=== PATIENT | female | born 1950 | race Caucasian/White ===

== ENCOUNTER 2021-09-24 13:47 | Outpatient (CLI) | payer MEDICARE, SELFPAY ==
--- NOTE | 2021-09-24 14:59 | ECG_ITS ---
Measurements Intervals [place] Rate: 68 P: 44 MD: 148 QRS: 49 QRSD: 90 T: 30 QT: 377 QTc: 402 Interpretive Statements SINUS RHYTHM MINIMAL Q WAVES- INFERIOR LEADS BASELINE ARTIFACT- I, II, III, AVR, AVL, AVF BORDERLINE ECG Electronically Signed On 09-24-2021 16:03:33 EXTRUDER OPERATOR HORIZONTAL by Stephan Lepe D.O.
[2021-09-24 15:46] LABS: Basophils Absolute Auto 0.1 K/mm3 (0.0-0.1); Basophils Percent Auto 0.9 % (0.2-1.2); Eosinophils Absolute Auto 0.1 K/mm3 (0-0.3); Eosinophils Percent Auto 1.3 % (0-4.4); Hematocrit 43.5 % (37.0-47.0); Hemoglobin 14.9 g/dL (12.0-15.0); Immature Granulocyte Absolute 0.02 K/mm3 (0.00-0.031); Immature Granulocyte Percent A 0.3 % (0-0.5); Lymphocytes Percent Auto 28.7 % (18.3-44.2); Mean Corpuscular HGB Conc 34.3 g/dl (32-36); Mean Corpuscular Hemoglobin 32.1 pg (26-34); Mean Corpuscular Volume 93.8 fl (80-100); Mean Platelet Volume 9.5 fl (7.4-10.4); Monocytes Absolute Auto 0.4 K/mm3 (0.1-0.6); Monocytes Percent Auto 5.1 % (2.6-8.5); Neutrophils Absolute Auto 4.9 K/mm3 (1.3-6.7); Neutrophils Percent Auto 63.7 % (45.5-73.1); Platelet Count Result 228 k/mm3 (150-375); Red Blood Count 4.64 M/mm3 (4.2-5.4); Red Cell Distribution Width 11.9 % (11.5-14.5); White Blood Count 7.7 K/mm3 (4.5-10.0)
[2021-09-24 15:52] LABS: INR 0.9; Prothrombin Time 12.4 Seconds (11.1-14.7)
[2021-09-24 15:53] LABS: Alanine Aminotransferase 22 U/L (4-35); Albumin Level 4.2 g/dL (3.5-5.1); Alkaline Phosphatase 81 U/L (38-126); Anion Gap 2 mmol/L (8-16); Aspartate Amino Transferase 29 U/L (14-36); Bilirubin,Total 0.2 mg/dL (0.2-1.3); Blood Urea Nitrogen 14 mg/dL (7-17); Carbon Dioxide 30 mmol/L (22-30); Chloride 104 mmol/L (98-107); Estimated Glomerular Filt Rate > 60; Glucose 114 mg/dL (65-110); Partial Thromboplastin Time 31.7 SECONDS (22.3-36.8); Potassium 3.8 mmol/L (3.4-5.0); Sodium 136 mmol/L (137-145)
== END 2021-09-24 13:48 | disposition home or self-care (01) ==
LOC: ANHSURGERY 13:58
PROVIDERS: PCP Physician Assistant; Visit Provider Urology
DX: Z01.818 Encounter for other preprocedural examination (principal); N39.3 Stress incontinence (female) (male)
CPT/HCPCS: 36415; 80053; 85025; 85610; 85730; 86850; 86900; 86901; 87086; 93005

== ENCOUNTER → 2021-10-04 03:41 | Outpatient (CLI) | payer MEDICARE, SELFPAY ==
[2021-10-04 12:02] LABS: SARS-CoV-2 RNA PCR Negative
== END ==
PROVIDERS: PCP Physician Assistant; Visit Provider Urology
DX: Z01.812 Encounter for preprocedural laboratory examination (principal); Z20.822 Contact with and (suspected) exposure to COVID-19
CPT/HCPCS: C9803; U0003; U0005

== ENCOUNTER 2021-10-07 02:06 | Day surgery (SDC) | payer MEDICARE, SELFPAY ==
--- NOTE | 2021-09-24 13:55 | PC.NURSE ---
Report to the Outpatient Waiting Room, entrance under the green pavilion located off [facility], at time _0930__ on date _10/07/21_. OR Time: _1130_. - You will be asked a series of questions to screen for COVID 19 for your protection. - A mask is required within the hospital. - No visitors are allowed at this time. Preoperative COVID Testing Requirements: COVID TEST SCHEDULED FOR 10/04/21 @ 0900 No COVID Test needed if: (proof is required; if not received patient will have Rapid Test prior to entry) - Patient has received COVID Vaccine at least 14 days prior to procedure date or - Patient has positive COVID test result within last 90 days of surgery date. COVID Test needed if above criteria is not met If not COVID vaccinated a COVID test must be conducted within 72 hours of surgery and patient is asked to isolate self from time of testing until procedure. You will go to the [employer] [facility] Testing Site for your COVID testing. The [employer] [facility] site is located at the corner of [address] [facility]. You will only be called if COVID results are positive and your surgeon may reschedule your elective surgery date. Patients may have clear liquids (water, carbonated beverages, clear teas, apple juice) until 3 hours prior to surgery with a maximum of 20 ounces. - No food from midnight until time of surgery Take the following medications with a SIP of water the morning of surgery: __AMLODIPINE___ Medications to discontinue per DR. TAPIA - _ALL VITAMINS AND SUPPLEMENTS, 7 DAYS PRIOR TO SURGERY LAST DOSE TO BE TAKEN ON 09/29/21__ Please no make-up, nail citizen of [place], hairspray, perfume, deodorant, or body powder the day of surgery. No jewelry (including any body piercings) or valuables the day of surgery, leave them at home. Please take a shower or bath the night before, or the morning of, surgery with an antibacterial soap. Wear comfortable, loose fitting clothing. Children are encouraged to wear pajamas. - Jewelry must be removed prior to entering the operating room. Rings and piercings that are not removed may be cut off. - The hospital will not accept responsibility for valuables. - Please leave all valuables, including medications, at home the day of surgery. If you are going home after surgery, a licensed transit mixer driver must drive you home. - NO public transportation without another adult. - We recommend that an adult stay with you for 24 hours following discharge. - We also recommend that you do not drive, make important decision, drink alcoholic beverages, or take any drugs that were not prescribed by your health care provider for at least 24 hours after your discharge time. Follow any additional instructions given to you from DR. TAPIA. Instructions given to ____PT and asked if any additional questions and then verbalized understanding. Patient advised to call surgeon office or pre surgery nurse liaisonIJEOMA [phone] if any additional questions.
[2021-09-24 14:37] VITALS: BP 148/86; PULSE 72; RESP 18; TEMP 37.1; O2SAT 98; BMI 26.2
--- NOTE | 2021-10-04 10:45 | PM.IMHP ---
H&P: HPI History of Present Illness Date/Time: 10/04/21 10:45 71-year-old with vaginal vault prolapse after hysterectomy. She has no stress incontinence. She is here today for surgical correction Chief Complaint: Vaginal vault prolapse Review of Systems Review of Systems: All systems reviewed & are unremarkable except as noted in HPI and below PMFSH Social History Social History Smoking packs per day: 0.5 Smoking cigarettes per day: 10.0 Years smoked: 40 Smoking pack-years: 20.00 Smoking status: Current every day smoker Tobacco type: cigarettes Second hand tobacco smoke exposure: Yes Alcohol intake: never Substance use: never Spiritual care concerns: No Meds Home Medications and Allergies Home Medications Medication Instructions Recorded Confirmed Type B-complex with vitamin C [Vit B 1 cap PO DAILY 09/24/21 09/24/21 History Comp W/C] Balance Of Nature See Rx Instructions .ROUTE .COMPLEX 09/24/21 History Collagen Powder See Rx Instructions .ROUTE .COMPLEX 09/24/21 History Probiotic Formula 51 billion cells DAILY 09/24/21 09/24/21 History Raw Honey 1 tsp DAILY 09/24/21 History amlodipine 10 mg DAILY 09/24/21 09/24/21 History ascorbic acid (vitamin C) [Vitamin 500 mg PO DAILY 09/24/21 09/24/21 History C] cholecalciferol (vitamin D3) 125 mcg PO DAILY 09/24/21 09/24/21 History coenzyme Q10 [CoQ-10] 100 mg PO DAILY 09/24/21 09/24/21 History glucos sul 7FSq-ely-fjskl-C-Mn 1 cap PO DAILY 09/24/21 09/24/21 History [Glucosamine Chondroitin] un-wlu-ahydm-calcium carb-K1 2 tablet PO DAILY 09/24/21 09/24/21 History [Women's 50 Plus Multivitamin] omega-3 fatty acids-fish oil [Fish 1 cap PO DAILY 09/24/21 09/24/21 History Oil] Allergies Allergy/AdvReac Type Severity Reaction Status Date / Time latex Allergy Rash Verified 09/24/21 14:22 methylchloroisothiazolinone Allergy Anaphylaxis Verified 09/24/21 14:22 CLEANING CHEMICALS Allergy Anaphylaxis Uncoded 09/24/21 14:22 Exam Narrative: No acute distress Alert oriented x3 Normal breathing Minimal urethral mobility Vaginal wall prolapse at +2 Cystocele noted Assessment and Plan Assessment and plan (1) Prolapse of vaginal vault 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
[2021-10-07] VITALS (10 sets, daily range): BP systolic 97–142; BP diastolic 50–76; PULSE 72–89; RESP 14–18; TEMP 35.7–36.8; O2SAT 96–100
[2021-10-07] MEDS: LACTATED RINGERS 1,000 ML 30 ML IV CONT ×2 (06:51→10:26)
--- NOTE | 2021-10-07 07:13 | WPDHPUPDATE1 ---
History and Physical Update Update Date/Time: 10/07/21 07:13 History and Physical has been reviewed, including an updated exam of the patient. There are NO changes in the patient's condition. Risks, benefits, and alternatives have been discussed and questions answered. Patient agrees to proceed with procedure.
--- NOTE | 2021-10-07 07:17 | WPDANESEPPF ---
Anes - Initial Pre Proc Eval Procedure: Operation Date: 10/07/21 07:30 Proposed Procedures p Robotic Sacrocolpopexy - Fernandez Stallworth MD s Urethral Sling - Fernandez Stallworth MD Date/Time: 10/07/21 07:17 Surgeon: Fernandez Stallworth MD Pre Op Diagnosis: prolapse after hysterectomy, stress incont Patient Data Age: 71 Gender: F Height: 1.64 m Weight: 71.1 kg Last Vital Signs Temp 37.1 C 09/24/21 14:37 Pulse 72 09/24/21 14:37 Resp 18 09/24/21 14:37 BP 148/86 H 09/24/21 14:37 Pulse Ox 98 09/24/21 14:37 Allergies Allergy/AdvReac Type Severity Reaction Status Date / Time latex Allergy Rash Verified 10/07/21 06:28 methylchloroisothiazolinone Allergy Anaphylaxis Verified 10/07/21 06:28 CLEANING CHEMICALS Allergy Anaphylaxis Uncoded 10/07/21 06:28 Home Medications Medication Instructions Recorded Confirmed Type B-complex with vitamin C [Vit B 1 cap PO DAILY 09/24/21 10/07/21 History Comp W/C] Balance Of Nature See Rx Instructions .ROUTE .COMPLEX 09/24/21 History Collagen Powder See Rx Instructions .ROUTE .COMPLEX 09/24/21 History Probiotic Formula 51 billion cells DAILY 09/24/21 10/07/21 History Raw Honey 1 tsp DAILY 09/24/21 History amlodipine 10 mg DAILY 09/24/21 10/07/21 History ascorbic acid (vitamin C) [Vitamin 500 mg PO DAILY 09/24/21 10/07/21 History C] cholecalciferol (vitamin D3) 125 mcg PO DAILY 09/24/21 10/07/21 History coenzyme Q10 [CoQ-10] 100 mg PO DAILY 09/24/21 10/07/21 History glucos sul 4LIm-str-ouzga-C-Mn 1 cap PO DAILY 09/24/21 10/07/21 History [Glucosamine Chondroitin] oy-yxn-ruyyd-calcium carb-K1 2 tablet PO DAILY 09/24/21 10/07/21 History [Women's 50 Plus Multivitamin] omega-3 fatty acids-fish oil [Fish 1 cap PO DAILY 09/24/21 10/07/21 History Oil] Patient hx anesthesia problems: none Family hx anesthesia problems: none Results Review: All pre-operative results and documents have been reviewed as part of the pre-operative evaluation. [facility] Past Medical History Medical History (Updated 10/07/21 @ 07:18 by Arsh Ulloa MD) HTN (hypertension) Overweight (BMI 25.0-29.9) Social History Social History Smoking packs per day: 0.5 Smoking cigarettes per day: 10.0 Years smoked: 40 Smoking pack-years: 20.00 Smoking status: Current every day smoker Tobacco type: cigarettes Second hand tobacco smoke exposure: Yes Alcohol intake: never Substance use: never Living arrangements: alone Spiritual care concerns: No Anes - Eval Final PreProcedure Day of Procedure 10/07/21 07:17 Patient weight: overweight Heart: regular rate and rhythm Lungs: clear to auscultation and normal air movement Airway: Mallampati scale class II Neurological: alert and oriented Last oral intake: >/= 8 hours ASA classification: II Emergent: no Anesthetic plan: proceed Anesthesia type and monitoring: general ETT Results Review: All pre-operative results and documents have been reviewed as part of the pre-operative evaluation. Informed Consent: The patient's anesthetic plan and its attendant risks and benefits were discussed with the patient/family/POA. Questions were solicited and answers provided to the satisfaction of the patient/family/POA.
[2021-10-07] MEDS: ceFAZolin 2 GM/D5W 50 ML 2 GM/50 ML BAG IVPB (07:35)
[2021-10-07] MEDS: BUPIVACAINE/EPINEPHRINE 0.25% 10 ML VIAL INFILTRATE (08:46)
--- NOTE | 2021-10-07 10:15 | W.PM.PROC2 ---
Procedure Note - Detailed Date of Procedure 10/07/21 Pre-op Diagnosis prolapse after hysterectomy, stress incontinence Post-op Diagnosis same Procedure Performed Robotic assisted laparoscopic sacral colpopexy Urethral sling Cystoscopy Surgeon Fernandez Stallworth MD Anesthesia general Indications This is a woman with post hysterectomy vaginal vault prolapse as well as stress urinary incontinence on urodynamics. She desires surgical correction. She understands risks of bleeding, infection, diskitis, damage to surrounding organs, damage to the bowel or urinary tract, recurrence of prolapse, dyspareunia, vaginal mesh exposure, urinary tract mesh exposure, obstructive voiding requiring secondary procedure, hip and leg pain, and other perioperative intraoperative and postoperative complications. She is to proceed Findings See below Description of Procedure She was correctly identified. Informed consent obtained. She is brought to the operating room. She was given general anesthesia. She was placed in the lithotomy position. She was given appropriate perioperative antibiotics. She was prepped and draped in a sterile fashion. A time-out performed. I anesthetized the skin 3 fingerbreadths cephalad to the umbilicus. I incised the skin. I located the fascia. I grasped the fascia with Gilberto clamps. I incised the fascia sharply and a Abbott type technique. I placed Vicryl sutures for later fascial closure. I placed a midline trocar. Under direct vision placed 2 additional trocars in the right upper quadrant and 2 additional trocars in the left upper quadrant. She was placed in steep Trendelenburg. The robot was docked. I sat at the console. There was quite a bit of adhesions of colon to the cul-de-sac. These were all taken down sharply the. Minimal to no cautery was used. There was also adnexa as well as ovary sewn to the apex of the vagina. This was taken down sharply as well. With the Sizer in the vagina and created a plane on the anterior and posterior vaginal wall for several cm taking great care not to injure the vagina, bladder, or rectum. Of note it was quite scarred in this area, but there was no injury to the underlying vagina or rectum or bladder. I introduced the mesh into the vagina. I sewed the anterior leaflet of mesh on the anterior vaginal wall and posterior leaf of the mesh on the posterior vaginal wall with several sutures of 2 0 Kingsbury-Emre taking great care not to go through and through. I then opened up the peritoneum over the sacral promontory. I carried this incision into the cul-de-sac. I freed up the edges for later retroperitonealization of the mesh. I located the anterior longitudinal ligament of the sacrum. I cleaned off any fatty tissues. I then tensioned my mesh appropriately. I did a vaginal exam to ensure prolapse reduction without undue tension. I then sewed the proximal leaflet of mesh onto the ligament with several sutures of 2 0 Kings[place]-Emre. I then used a 2 0 Monocryl to meticulously retroperitonealized all mesh. I allowed the colon to go back into its normal anatomic location. There is no sign of impingement. He had an was then exited. Fascial sutures were closed. The wounds were all irrigated and closed with 4 O Monocryl and skin glue. She was then repositioned and prepped for urethral sling. I marked out the inner thigh incisions. I anesthetized the skin and made those incisions. I then anesthetized the anterior vaginal wall over the mid urethra. I made a 1 cm incision. I dissected out laterally taking great care not to injure the urethra vaginal wall. I passed the helical trocars. I did this 1st on the left than on the right from the thigh incision towards the vaginal incision. Sling was connected to the trocars and brought out through the thigh incision. I tensioned the sling appropriately. I cut and removed the plastic sleeves. I then performed cystoscopy. The bladder showed no evidence of surg
--- NOTE | 2021-10-07 10:57 | SUR.PHASEI ---
Simple mask removed at 1057.
[2021-10-07] MEDS: KCL 20 MEQ/D5/0.45% SOD CHL 1,000 ML 100 ML IV CONT (12:14)
--- NOTE | 2021-10-07 12:54 | PC.NURSE ---
Pt received via bed from PACU to 289 at 1133. Pt drowsy, arousable to verbal stimuli. C/O being cold. Denies pain. Pt given call light and instructed on how to use it. Pt also instructed that she has a fitzgerald at this time and will be getting IV fluids until more awake and tolerating po fluids. Verbalized understanding. NAD noted.
[2021-10-07] MEDS: KETOROLAC 15 MG/ML VIAL (*BKC) IV PUSH (14:00)
--- NOTE | 2021-10-07 14:43 | PC.NURSE ---
Pt tolerating Sprite w/o difficulties. Pt given génesis quispe.
[2021-10-07] MEDS: HYDROcodone/acetaminophen (*CRX) 5-325 MG TABLET 1 TAB PO (20:30)
[2021-10-08] MEDS: HYDROcodone/acetaminophen (*CRX) 5-325 MG TABLET 1 TAB PO ×2 (00:20→04:46)
[2021-10-08 04:30] VITALS: BP 104/56; PULSE 66; RESP 18; TEMP 36.8
[2021-10-08] MEDS: ACETAMINOPHEN 325 MG TABLET 650 MG PO (04:46)
[2021-10-08 08:30] VITALS: BP 117/71; PULSE 74; RESP 16; TEMP 37.1; O2SAT 96
[2021-10-08] MEDS: amLODIPine BESYLATE 5 MG TABLET 10 MG PO (09:07)
[2021-10-08] MEDS: DOCUSATE SODIUM 100 MG CAPSULE PO (09:07)
[2021-10-08] MEDS: ENOXAPARIN 30 MG/0.3 ML SYRINGE SUB-Q (09:08)
--- NOTE | 2021-10-08 09:29 | WPDANESPN ---
Anes - Prog Note Post-Op Date/Time: 10/08/21 09:29 Cardiovascular status: normal Respiratory status: normal Airway patency: baseline Mental status: baseline Post-Op hydration status: normal Vital Signs: Last Vital Signs Temp 37.1 C 10/08/21 08:30 Pulse 74 10/08/21 08:30 Resp 16 10/08/21 08:30 BP 117/71 10/08/21 08:30 Pulse Ox 96 10/08/21 08:30 Pain Score (VAS): 0 I/O: Intake & Output 10/07/21 10/08/21 10/08/21 23:59 07:59 15:59 Intake Total 650 1770 Output Total 500 2750 Balance 150 -980 Post-procedural complaints: none Patient Feedback: Patient satisfied with anesthetic care.
--- NOTE | 2021-10-08 10:35 | WPDUROPN2 ---
Progress Note: A&P Assessment and Plan (1) Prolapse of vaginal vault after hysterectomy: Code(s): N99.3 - Prolapse of vaginal vault after hysterectomy Status: Acute Assessment and Plan: Ok to discharge home. Subjective Subjective Date/Time Seen: 10/08/21 10:35 POD #1 Robotic assisted laparoscopic sacral colpopexy Urethral sling Cystoscopy Patient doing well without fitzgerald catheter, urinating well, PVR is <300cc, tolerating diet and activity. Review of Systems Cardiovascular: Cardiovascular: Reports no additional cardiovascular complaints Respiratory: Respiratory: Reports no additional respiratory complaints Gastrointestinal: Gastrointestinal: Denies abdominal pain, Denies nausea and Denies vomiting Genitourinary: Genitourinary: Denies hematuria, Denies nocturia, Denies dysuria, Denies urinary hesitancy and Denies urinary urgency Exam Resp: Effort & Inspection: normal respiratory effort Cardio: Rate: regular rate GI: GI Palp: Yes Soft to palpation and Yes Tenderness to palpation present (GI) (at incisions only, all are well approximated, no edema or redness present) : General: Yes no CVA tenderness Extrem: General: no edema Objective Data Vital Signs Vital Signs: Vital Signs - 24 hr 10/07/21 10:40 10/07/21 10:55 10/07/21 11:10 Temperature Pulse Rate 80 72 83 Respiratory Rate 18 14 18 Blood Pressure 98/51 L 115/56 L 100/62 Pulse Oximetry 99 100 96 10/07/21 11:40 10/07/21 12:15 10/07/21 16:00 Temperature 96.3 F L 96.8 F L 98 F Pulse Rate 82 84 Respiratory Rate 18 16 Blood Pressure 108/62 102/51 L Pulse Oximetry 99 97 10/07/21 18:40 10/07/21 23:46 10/08/21 04:30 Temperature 98.2 F 98.1 F 98.3 F Pulse Rate 89 78 66 Respiratory Rate 18 18 18 Blood Pressure 104/51 L 105/55 L 104/56 L Pulse Oximetry 10/08/21 08:30 Temperature 98.7 F Pulse Rate 74 Respiratory Rate 16 Blood Pressure 117/71 Pulse Oximetry 96 Intake/Output Intake/Output: Intake & Output 10/05/21 10/06/21 10/07/21 10/08/21 23:59 23:59 23:59 23:59 Intake Total 1000 1770 Output Total 610 2750 Balance 390 -980 Meds/Results Medications: Active Medications Generic Name Dose Route Start Last Admin Trade Name Freq PRN Reason Stop Dose Admin Acetaminophen 650 mg 10/07/21 11:24 10/08/21 04:46 Acetaminophen 325 Mg Tablet PO 650 mg Q4H PRN Administration Mild Pain (1-3) or Fever Hydrocodone Bitart/Acetaminophen 1 tab 10/07/21 11:24 10/08/21 04:46 Hydrocodone/Acetaminophen (*Crx) 5-325 Mg Tablet PO 1 tab Q4H PRN Administration Pain Rated 4-5 Amlodipine Besylate 10 mg 10/07/21 11:24 10/08/21 09:07 Amlodipine Besylate 5 Mg Tablet PO 10 mg DAILY NOEMI Administration Cephalexin HCl 500 mg 10/08/21 13:00 Cephalexin 500 Mg Capsule PO QID NOEMI Diphenhydramine HCl 25 mg 10/07/21 11:24 Diphenhydramine Hcl Inj 50 Mg/Ml Vial IV PUSH Q6H PRN Itching Docusate Sodium 100 mg 10/07/21 11:24 10/08/21 09:07 Docusate Sodium 100 Mg Capsule PO 100 mg DAILY NOEMI Administration Enoxaparin Sodium 30 mg 10/08/21 09:00 10/08/21 09:08 Enoxaparin 30 Mg/0.3 Ml Syringe SUB-Q 30 mg DAILY NOEMI Administration Ketorolac Tromethamine 15 mg 10/07/21 11:24 10/07/21 14:00 Ketorolac 15 Mg/Ml Vial (*Bkc) IV PUSH 15 mg Q8H PRN Administration Pain Rated 5 or Less Morphine Sulfate 2 mg 10/07/21 11:24 Morphine Sulfate (*Crx) 2 Mg/Ml Inj IV PUSH Q2H PRN Pain Rated 6 or Greater Ondansetron HCl 4 mg 10/07/21 11:24 Ondansetron Inj 4 Mg/2 Ml Vial IV PUSH Q6H PRN Nausea And Vomiting Zolpidem Tartrate 5 mg 10/07/21 11:24 Zolpidem Tartrate (*Crx) 5 Mg Tablet PO HS PRN Insomnia
== END 2021-10-08 11:40 | disposition home or self-care (01) ==
LOC: ANHSURGERY 10:15 → ANHOB2 11:28
PROVIDERS: PCP Physician Assistant; Visit Provider Urology
PROC: (CPT 57425; principal; 2021-10-07 07:30)
PROC: (CPT 57288; 2021-10-07 07:30)
DX: N39.3 Stress incontinence (female) (male) (principal); N99.3 Prolapse of vaginal vault after hysterectomy; I10 Essential (primary) hypertension; F17.210 Nicotine dependence, cigarettes, uncomplicated
CPT/HCPCS: 57288; 57425; S2900; 36415; 80053; 85025; 85610; 85730; 86850; 86900; 86901; 87086; 93005; 99199; A9270; C1771; C1781; C9290; C9803; J0690; J1100; J1170; J1650; J1885; J2250; J2370; J2405; J2704; J2710; J3010; J3480; J7030; J7120; U0003; U0005

== ENCOUNTER 2023-07-31 14:53 | Outpatient (CLI) | payer MEDICARE, SELFPAY ==
--- NOTE | ~2023-07-31 | XR_ITS ---
EXAMINATION: XR hip RT 2V w AP pelvis DATE: 07/31/2023 15:38 INDICATION: Pain in right hip joint. TECHNIQUE: An anteroposterior view of the pelvis and 2 views of right hip were obtained. COMPARISON: None. FINDINGS: There is lumbar levoscoliosis and severe spondylosis. No fracture. There is mild osteoarthr itis of the hips. Osteitis pubis is noted. IMPRESSION: 1. Mild osteoarthritis of the hips. Reviewed, dictated and finalized at location E. TH SYSTEMS ANALYST
[2023-07-31 16:09] LABS: Basophils Absolute Auto 0.1 K/mm3 (0.0-0.1); Eosinophils Absolute Auto 0.1 K/mm3 (0-0.3); Eosinophils Percent Auto 0.9 % (0-4.4); Hematocrit 43.4 % (37.0-47.0); Hemoglobin 14.5 g/dL (12.0-15.0); Immature Granulocyte Absolute 0.03 K/mm3 (0.00-0.031); Immature Granulocyte Percent A 0.4 % (0-0.5); Lymphocytes Absolute Auto 2.04 K/mm3 (0.9-3.2); Lymphocytes Percent Auto 26.8 % (18.3-44.2); Mean Corpuscular HGB Conc 33.4 g/dl (32-36); Mean Corpuscular Hemoglobin 31.1 pg (26-34); Mean Corpuscular Volume 93.1 fl (80-100); Mean Platelet Volume 9.4 fl (7.4-10.4); Monocytes Absolute Auto 0.4 K/mm3 (0.1-0.6); Monocytes Percent Auto 5.1 % (2.6-8.5); Neutrophils Percent Auto 65.8 % (45.5-73.1); Platelet Count Result 216 k/mm3 (150-375); Red Blood Count 4.66 M/mm3 (4.2-5.4); Red Cell Distribution Width 12.1 % (11.5-14.5); White Blood Count 7.6 K/mm3 (4.5-10.0)
[2023-07-31 16:12] LABS: Hemoglobin A1C 5.2 % (<5.7)
[2023-07-31 16:14] LABS: Alanine Aminotransferase 23 U/L (6-35); Albumin Level 4.6 g/dL (3.5-5.1); Alkaline Phosphatase 73 U/L (38-126); Anion Gap 7 mmol/L (8-16); Aspartate Amino Transferase 32 U/L (14-36); Bilirubin,Total 0.5 mg/dL (0.2-1.3); Blood Urea Nitrogen 17 mg/dL (7-17); Calcium 10.6 mg/dL (8.4-10.2); Carbon Dioxide 27 mmol/L (22-30); Chloride 105 mmol/L (98-107); Cholesterol 270 mg/dL (0-200); Estimated Glomerular Filt Rate > 60; Glucose 87 mg/dL (65-110); HDL Direct 57 mg/dL; Sodium 139 mmol/L (137-145); Triglycerides 146 mg/dL (<150)
[2023-07-31 16:25] LABS: LDL Cholesterol Direct 143 mg/dL
[2023-07-31 16:51] LABS: Free T4 Free Thyroxine 1.16 ng/mL (0.78-2.19)
== END 2023-07-31 14:54 | disposition home or self-care (01) ==
PROVIDERS: PCP Physician Assistant; Visit Provider Physician Assistant
DX: M16.0 Bilateral primary osteoarthritis of hip (principal); E78.5 Hyperlipidemia, unspecified; R73.09 Other abnormal glucose; Z79.899 Other long term (current) drug therapy
CPT/HCPCS: 36415; 73502; 80048; 80061; 80076; 83036; 84439; 84443; 85025

== ENCOUNTER → 2023-09-21 13:18 | Outpatient (CLI) | payer MEDICARE, SELFPAY ==
--- NOTE | ~2023-09-21 | MM_ITS ---
EXAMINATION: MM screening familia BI w rhonda HISTORY: Screening TECHNIQUE: Craniocaudal and mediolateral oblique 3-D tomosynthesis images were obtained and synthetic 2-D images were generated. CAD analysis was submitted and interpreted. COMPARISON: No prior mammogram is available for comparison at this institution. BREAST PARENCHYMAL COMPOSITION: The breasts are heterogeneously dense, which may obscure small masses . FINDINGS: There are asymmetries in the right breast. There are no suspicious masses, calcifications o r architectural distortion in the left breast to suggest malignancy. IMPRESSION: 1. Right breast asymmetries. 2. Additional mammographic views and possible breast ultrasound are recommended. BI-RADS Category 0: Incomplete: Needs additional imaging evaluation. Reviewed, dictated and finalized at location A. AL IMPLEMENTATION MANAGER IMPRESSION: 1. Right breast asymmetries. 2. Additional mammographic views and possible breast ultrasound are recommended . BI-RADS Category 0: Incomplete: Needs additional imaging evaluation.
== END ==
PROVIDERS: PCP Obstetrics & Gynecology; Visit Provider Obstetrics & Gynecology
DX: Z12.31 Encounter for screening mammogram for malignant neoplasm of breast (principal); R92.8 Other abnormal and inconclusive findings on diagnostic imaging of breast
CPT/HCPCS: 77063; 77067

== ENCOUNTER 2024-05-20 14:02 | Outpatient (CLI) | payer MEDICARE, SELFPAY ==
[2024-05-20 15:04] LABS: Basophils Absolute Auto 0.1 K/mm3 (0.0-0.1); Basophils Percent Auto 0.7 % (0.2-1.2); Eosinophils Absolute Auto 0.1 K/mm3 (0-0.3); Eosinophils Percent Auto 1.6 % (0-4.4); Hematocrit 43.1 % (37.0-47.0); Hemoglobin 14.3 g/dL (12.0-15.0); Immature Granulocyte Absolute 0.02 K/mm3 (0.00-0.031); Immature Granulocyte Percent A 0.3 % (0-0.5); Lymphocytes Absolute Auto 1.91 K/mm3 (0.9-3.2); Lymphocytes Percent Auto 27.7 % (18.3-44.2); Mean Corpuscular HGB Conc 33.2 g/dl (32-36); Mean Corpuscular Volume 93.5 fl (80-100); Mean Platelet Volume 9.8 fl (7.4-10.4); Monocytes Absolute Auto 0.4 K/mm3 (0.1-0.6); Monocytes Percent Auto 5.9 % (2.6-8.5); Neutrophils Absolute Auto 4.4 K/mm3 (1.3-6.7); Neutrophils Percent Auto 63.8 % (45.5-73.1); Platelet Count Result 227 k/mm3 (150-375); Red Blood Count 4.61 M/mm3 (4.2-5.4); Red Cell Distribution Width 12.7 % (11.5-14.5); White Blood Count 6.9 K/mm3 (4.5-10.0)
[2024-05-20 15:24] LABS: Alanine Aminotransferase 20 U/L (6-35); Albumin Level 4.3 g/dL (3.5-5.1); Alkaline Phosphatase 63 U/L (38-126); Anion Gap 6 mmol/L (4-12); Aspartate Amino Transferase 31 U/L (14-36); Bilirubin,Total 0.7 mg/dL (0.2-1.3); Blood Urea Nitrogen 17 mg/dL (7-17); Calcium 9.8 mg/dL (8.4-10.2); Carbon Dioxide 34 mmol/L (22-30); Chloride 101 mmol/L (98-107); Cholesterol 264 mg/dL (0-200); Estimated Glomerular Filt Rate > 60; Glucose 81 mg/dL (65-110); HDL Direct 55 mg/dL; Sodium 141 mmol/L (137-145); Triglycerides 103 mg/dL (<150)
[2024-05-20 15:35] LABS: LDL Cholesterol Direct 159 mg/dL
[2024-05-20 15:48] LABS: Hemoglobin A1C 5.5 % (<5.7)
[2024-05-20 16:03] LABS: Free T4 Free Thyroxine 0.89 ng/mL (0.78-2.19)
== END 2024-05-20 14:03 | disposition home or self-care (01) ==
LOC: ANHLAB 14:08
PROVIDERS: PCP Obstetrics & Gynecology; Visit Provider Physician Assistant
DX: E78.5 Hyperlipidemia, unspecified (principal); R73.09 Other abnormal glucose; Z79.899 Other long term (current) drug therapy
CPT/HCPCS: 36415; 80048; 80061; 80076; 83036; 84439; 84443; 85025

== ENCOUNTER 2025-05-11 09:50 | Outpatient (CLI) | payer MEDICARE, SELFPAY ==
--- OUTSIDE RECORDS SUMMARY | 2007-12-02 03:21 | XMS_ITS | Continuity of Care Document ---
Author Organization [facility] Address [address] [place] [address] Phone Care Team Providers Care Assembler Surgical Garment Name Role Phone Bart Diana MD Unavailable Unavailable Procedures Procedure Date Office/outpatient Visit, Est After Cataract Laser Surgery Advance Directives Directive Yes / No Effective Date File Name No Information Encounters Encounter Description Practice Location Reason(s) For Visit Diagnoses Date Provider Providers Copied on Encounter Office/outpa tient Visit, Est [facility], [address], [place], [place], [id number], [place] tel:[phone] [facility] Professional No Information 0-200 8 Lebron Arriaga. [address], [address], [place], [place], [id number], [place]. tel:[phone] Referring Provider: Ferny Ball, [address] [facility] [place], [place], [address]. tel:[phone] Family History Family Member Type Diagnosis Age At Onset No Information Payers Payer name Insurance type Covered republican ID Authoriza tion(s) No Information Social History Type Description Quantity Date Captured Comments Sex Female Smoking Status No Information Chief Complaint And Reason For Visit No Information Reason For Referral Reason For Referral No Information History Of Present Illness Encounter Date Complaint History Of Prese nt Illness No Information Functional Status Date Functional Assessmen t No Information Instructions Date Instruction Additional Infor mation No Information Assessments Type Assessment Date No Information Patient Care Teams Name Effective Dates (start - stop) Status Members No Information
--- NOTE | ~2025-05-11 | CT_ITS ---
Elzbieta Galan EXAMINATION: CT abdomen pelvis w con COMPARISON: None HISTORY: chronic diarrhea TECHNIQUE: Axial images were obtained through the abdomen, pelvis post administration of IV contrast. Oral contrast was also administered. Coronal reconstruction images were obtained from the axial views. CT scan performed using dose optimization techniques including the following automated exposure control; adjustment of mA and/or kV; use of iterative reconstruction technique. Automatic exposure control was used to reduce radiation dose. Permanent radiation dose record is archived to PACS. FINDINGS: CT abdomen: LUNG BASES: The lung bases are clear. The visualized portions of the heart and pericardium are unremarkable. LIVER: Subcentimeter probable liver cysts. Portal vein patent. No intrahepatic biliary duct dilatation. SPLEEN: Punctate calcified splenic granulomas.. KIDNEYS: Right Kidney: Right kidney subcentimeter probable renal cysts. Left Kidney: Unremarkable. No calculi. No hydronephrosis ADRENAL GLANDS: Unremarkable. PANCREAS: Mild atrophy of the pancreatic body and tail. GALLBLADDER/BILIARY: Cholelithiasis with a large gallstone measuring 2.5 x 2 cm. CBD normal. STOMACH AND ESOPHAGUS: The stomach is decompressed. BOWEL/MESENTERY: Moderate diverticulosis. There is mild hyperemia of the sigmoid colon and descending colon with nonspecific fluid-filled loops of large bowel with mild hyperemia noted also the ascending colon but no perforation or abscess. Post appendectomy. Mesentery normal. There are fluid-filled loops of small bowel noted however there are no dilated small bowel loops. ADENOPATHY/RETROPERITONEUM: No lymphadenopathy. AORTA/VASCULATURE: Normal caliber aorta. FREE FLUID OR FREE AIR: No free fluid.. CT pelvis: SOLID ORGANS/REPRODUCTIVE: Post hysterectomy. No adnexal mass. BLADDER: Mild hyperemia noted of the bladder mucosa. OSSEOUS STRUCTURES: No sclerotic or lytic lesions. OVERLYING SOFT TISSUES: Unremarkable. IMPRESSION: 1. Mild colitis probably infectious in nature. 2. Mild cystitis. 3. Incidental findings above Reviewed, dictated and finalized at location A.
--- OUTSIDE RECORDS SUMMARY | 2025-05-11 10:26 | XMS_ITS | Encounter Summary ---
Author Organization [facility] Address [address] [place] [address] Care Team Providers Care Ship Joiner Name Role Phone Emmy Song Primary Care Pr ovider Encounter Details Date Type Department Care Team (Late st Contact Info) Description 06/08/2020 Telephone [facility] [address] [place] [address] Edda Montalvo, RT Social History Tobacco Use Types Packs/Day Years Used Date Smoking Tobacco: Every Day Comments:Smoking History Pac ks/day: 0 Packs Alcohol Use Standard Drinks/Week Comments No 0 (1 standard drink = 0.6 oz pur e alcohol) Comments Unknown Sex and Gender Information Value Date Recorded Sex Assigned at Not on file Legal Sex Female 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 difficile suspected 03/09/2024 03/11/202403/10 3:05 AM CDT C. difficile suspected 03/11/2024 03/11/202403/11 12:10 PM CDT documented as of this encounter Care Teams Ship Joiner Relationship Specialty Start Date End Date Emmy Song PA PCP - General 05/15/20 documented as of this encounter
--- OUTSIDE RECORDS SUMMARY | 2025-05-11 10:26 | XMS_ITS | Clinical Summary ---
Author Organization [facility] Address [address] [place] [address] Care Team Providers Care Furniture Shampooer Name Role Phone Ge Wynn MD Primary Care Provider [phone] Source Comments [facility],non-owned Affiliates and Associated Physician Practices is amultiple site organization consisting of ambulatory clinics and hospital sitesin [place], [place], [place] and [place]. This disclosure is being madepursuant to the Care Everywhere program and may not contain all information available regarding this patient. 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 Gender Identity Not on file Sexual Orientation Not on file Last Filed Vital Signs Vital Sign Reading Time Taken Comments Blood Pressure - - Pulse - - Temperature - - Respiratory Rate - - Oxygen Saturation - - Inhaled Oxygen Concentration - - Weight 56.7 kg (125 lb) 10/19/2024 10:55 AM INDUCTOR TESTER Height 165.1 cm (5' 5) 10/19/2024 10:55 AM INDUCTOR TESTER Body Mass Index 20.8 10/19/2024 10:55 AM INDUCTOR TESTER Plan of Treatment Health Maintenance Due Date Last Done Comments COLON MONITORING 1950 COLONOSCOPY - COLON CA SCREENING 1950 CT COLONOGRAPHY - COLON CA SCREENING 1950 FIT - COLON CA SCREENING 1950 FLEX SIG - COLON CA SCREENING 1950 LIPID TESTING 1950 HEPATITIS C SCREENING 01/31/1968 DTAP/TDAP/TD VACCINES (1 - Tdap) 1969 PNEUMOCOCCAL VACCINE 50+ (1 of 1 - PCV) 02/05/2000 ZOSTER VACCINE (1 of 2) 02/05/2000 DEPRESSION SCREENING 08/24/2024 MEDICARE AWV CALENDAR YEAR 2024 Respiratory Syncytial Virus (RSV) Vaccine Pt: or over 60 yrs (1 - 1-dose 75+ series) 2025 COVID-19 VACCINE (1 - season) 2025 INFLUENZA VACCINE (#1) 2025 11/21/2013 MAMMOGRAM 09/24/2026 09/24/2024, 08/25, 07/27/2021, Additional history exists COLOGUARD (AGES 45-75) - COLON CA SCREENING 05/12/2027 05/12/2024, 07/31/2021 Colorectal Cancer Screening 05/12/2027 BONE DENSITY TESTING Completed 09/24/2024, 09/20/2022, 06/11/2020, Additional history exists HEPATITIS B VACCINE Aged Out No longe r eligible based on patient's age to complete this topic HIB VACCINE Aged Out No longer eligi ble based on patient's age to complete this topic HPV VACCINE Aged Out No longer eligi ble based on patient's age to complete this topic MENINGOCOCCAL (Group B) VACCINE SHARED DECISION-MAKING Aged Out No longer eligible based on patient's age to complete this topic MENINGOCOCCAL GROUPS A/C/Y/W VACCINE Aged Out No longer eligible based on patient's age to complete this topic Procedures Procedure Name Priority Date/Time Associated Diagnosis Comments MAMMO BILAT SCREENING W COLIN Routine 09/24/2024 11:43 AM INDUCTOR TESTER Encounter for screening mammogram for breast cancer Osteopenia, unspecified location DEXA BONE DENSITY AXIAL SKELETON Routine 09/24/2024 11:20 AM INDUCTOR TESTER Osteopenia, unspecified location from Last 3 Months or Most Recently Relevant to Health Maintenance Results * Mammo Bilat Screening W Colin (09/24/2024 11:43 AM INDUCTOR TESTER) Anatomical Region Laterality Modality Breast Bilateral Mammography 09/25/2024 12:4 1 PM INDUCTOR TESTER Impressions 09/25/2024 12:46 PM INDUCTOR TESTER IMPRESSION: LEFT diagnostic mammogram and possible left breast ultrasound are now recommended. OVERALL FINAL ASSESSMENT: BI-RADS Category 0. Incomplete - Need additional imaging evaluation. > Interpreting Provider: Martine Bernal MD on 09/25/2024 12:46 PM Narrative 09/25/2024 12:46 PM INDUCTOR TESTER EXAMINATION: BILATERAL DIGITAL SCREENING MAMMOGRAM AND BILATERAL BREAST TOMOSYNTHESIS HISTORY: Screening. COMPARISON: Serial examinations dating back to 12/23/2014. TECHNIQUE: BILATERAL digital breast tomosynthesis (DBT) and synthetic 2D digital mammogram images were obtained (bilateral craniocaudal and mediolateral oblique projections) including computer aided detection (CAD.) BREAST PARENCHYMAL COMPOSITION: Category C: The breasts are heterogeneously dense which may obscure small masses. MAMMOGRAM FINDINGS: There is no suspicious finding in the RIGHT breast. There are stable expected findings of bilateral reduction mammoplasty. There is a questionable asymmetry in the LEFT medial breast middle depth, 5 cm from the nipple; reference left CC tomosynthesis slice 16/28. Emmy SCHMITT MAMMO ORDERABLES Final Result * DEXA BONE DENSITY AXIAL SKELETON (09/24/2024 11:20 AM INDUCTOR TESTER) Anatomical Region Laterality Modality Mammography 09/24/2024 1:41 PM INDUCTOR TESTER Narrative 09/24/2024 1:43 PM INDUCTOR TESTER BONE MINERAL DENSITY STUDY INDICATION: Osteoporosis screening. FINDINGS: The average bone mineral density from L1 to L4 is1.091 g/cm2. The T-score is -0.8 and the Z-score is +1.2. The average bone mineral density of the totalright and left hips is 0.810 g/cm2. The T-score is -1.6 and the Z-score is +0.3. Bone density right femoral neck 0.792 g percent meters squared which is 1.8 standard deviations below the mean for the young adult T score.. ASSESSMENT: The above measurements of bone mineral density represent osteopenia with a mild increased risk of fracture in the proximal femur. Calculated bone density lumbar spine is within normal limits. There is 8% increase in the calculated bone density in the lumbar spine as compared with the previous examination of September 20, 2022. There is 5% reduction in the calculated bone mineral density in the proximal femur as compared with the previous. WORLD HEALTH ORGANIZATION DEFINITIONS OSTEOPENIA = -1 to -2.5 SD BELOW T SCORE. OSTEOPOROSIS = Less than -2.5 SD BELOW T SCORE > Interpreting Provider: Rhys Kaiser MD on 09/24/2024 1:43 PM Procedure Note Rhys Kaiser MD - 09/24/2024 BONE MINERAL DENSITY STUDY INDICATION: Osteoporosis screening. FINDINGS: The average bone mineral density from L1 to L4 is1.091 g/cm2. TheT-score is -0.8 and the Z-score is +1.2. The average bone mineral density of the totalright and left hips is0.810 g/cm2. The T-score is -1.6 and the Z-score is +0.3. Bone density right femoral neck 0.792 g percent meters squared which is 1.8 standard deviations below the mean for the young adult T score.. ASSESSMENT: The above measurements of bone mineral density represent osteopenia with a mild increased risk of fracture in the proximal femur. Calculated bone density lumbar spine is within normal limits. There is 8% increase in the calculated bone density in the lumbar spineas compared with the previous examination of September 20, 2022. There is 5% reduction in the calculated bone mineral density in the proximal femuras compared with the previous. WORLD HEALTH ORGANIZATION DEFINITIONS OSTEOPENIA = -1 to -2.5 SD BELOW T SCORE. OSTEOPOROSIS = Less than -2.5 SD BELOW T SCORE > Interpreting Provider: Rhys Kaiser MD on 09/24/2024 1:43 PM Emmy SCHMITT DEXA ORDERABLES Final Result from Last 3 Months or Most Recently Relevant to Health Maintenance Insurance [employer] [place] [address] Care Teams Furniture Shampooer Relationship Specialty Start Date End Date Ge Wynn MD PCP - General Internal Medicine 04/11/17
--- OUTSIDE RECORDS SUMMARY | 2025-05-11 10:26 | XMS_ITS | Clinical Summary ---
Author Organization [facility] Address [address] [place] [address] Phone Care Team Providers Care Assembler Surgical Garment Name Role Phone Nick Rubi Primary Care Pr ovider Allergies Active Allergy Reactions Criticality Noted Date Comments Cephalexin Syncope,Mental status changes High Reaction: Mental Status Changes, fainting, Codeine Nausea only,Vomiting,Fev er Reaction: Nausea, Vomiting, , Reaction: Fever, Vomiting, Isothiazolinones Anaphylaxis High 06/02/2023 Latex Rash Medium 06/02/2023 Methylchloroisothiazolinone Anaphylaxis High 023 Reaction: RASH Xnrjtlc-Grz-Dua Reductase Inhibitors Unknown 03/09/2024 Medications amLODIPine (NORVASC) 10 mg tabletIndicatio ns:hypertension Take 1 tablet (10 mg total) by mouth daily Active cholecalciferol (VITAMIN D-3) 39086 unit capsule Take 1 capsule (10,000 Units total) by mouth daily Active ascorbic acid (vitamin C) 100 mg tablet Take 1 tablet (100 mg total) by mouth daily Active glucosam-chondr oitin-diet cb25 116-100 mg capsule Take 1 tablet by mouth Active omega-3 fatty acids-fish oil 300-1,000 mg capsule Take 2 capsules (2 g total) by mouth daily Active cyanocobalamin (Vitamin B-12) 100 mcg tabletIndicatio ns:Prevention of Vitamin B12 Deficiency Take 1 tablet (100 mcg total) by mouth every other day Active vitamin B complex capsule Take 1 capsule by mouth daily Active multivit with min-folic acid 0.4 mg tablet Take 1 tablet by mouth Active oxyCODONE-aceta minophen (PERCOCET) 5-325 mg per tabletIndicatio ns:Pain Take 1-2 tablets by mouth every 8 (eight) hours as needed for pain 20 tablet 3 Active Additional Information Patient not taking.Reported on 06/17/2023 Lactobac. rhamnosus GG-inulin 10 billion cell -200 mg capsule, sprinkle Take by mouth Active Active Problems Problem Noted Date Diagnosed Date Acute appendicitis, unspecified acute appendicit is type 06/02/2023 Hyperlipidemia 01/07/2014 Overview (11/28/2016): HYPERLIPIDEMIA NEC/NOS Benign hypertension 01/07/2014 Overview (11/28/2016): BENIGN HYPERTENSION Dermatitis venenata 11/23/2012 Urticaria, unspecified 10/26/2012 Current smoker 10/18/2010 Immunizations Immunization Administration Dates Next Due Influenza, Split 11/21/2013 Tdap 08/28/2008 Surgical History Surgery Date Site/Laterality Comments REDUCTION MAMMOPLASTY 2008 Breast reduction TONSILLECTOMY tonsillectomy REDUCTION MAMMOPLASTY breast reduction HYSTERECTOMY Hysterectomy OTHER SURGICAL HISTORY 2011 colonscopy 08/2011: Dr. 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 Insomnia insomnia Hyperlipidemia Hyperlipidemia Hypertension Hypertension Hx Other Medical 2011 colonscopy 09/12 12 Hx Other Medical Chronic recurre nt rash Hx Other Medical Chronic intermi ttent inflammatory foot pain Anxiety disorder Anxiety Tobacco abuse counseling Encount er for smoking cessation counseling - (Added by TW Conv) Family History Medical History Relation Name Comments Depression Brother 1 Depression; Hypertension Brother 1 Hypertension; Hypertension Brother 2 Hypertension; Coronary artery disease Father 2 Tahir nary artery disease; Heart failure Father 2 Family history of congestive heart failure - (Added by TW Conv) Hypertension Father 2 Family history of hypertension - (Added by TW Conv) Other Father 2 Unknown; Cause of : Unknown Hypertension Mother 2 Family history of hypertension - (Added by Conv) Other Mother 2 Alive and well; Other Other No family histo ry of Cancer; Diabetes type II Paternal Grandfather 2 D iabetes -Type 2; Cause of : Diabetes -Type 2 Breast cancer Sister 1 Cancer -breast ; Breast cancer Sister 2 Cancer, breast ; Relation Name Status Comments Brother 1 Brother 2 Father 1 (Age 70) Father 2 Mother 1 Alive Mother 2 Other Paternal Grandfather 1 (Age 60) Paternal Grandfather 2 Sister 1 Sister 2 Social History Tobacco Use Types Packs/Day Years Used Date Smoking Tobacco: Every Day Cigarettes 0.5 45 Tobacco Cessation:Ready to Q uit: Not Asked; Counseling Given: Not Answered Comments:Smoking History Packs/day: 0 Packs Alcohol Use Standard Drinks/Week Comments No 0 (1 standard drink = 0.6 oz pur e alcohol) AUDIT-C Answer Date Recorded Q1: How often do you have a drink containing alcohol? Never 06/02/2023 Q2: How many drinks containi ng alcohol do you have on a typical day when you are drinking? Patient does not drink Q3: How often do you have si x or more drinks on one occasion? Never 06/02/2023 Personal Safety Answer Date Recorded Have you ever been in or are you currently in a harmful physical or emotional relationship or is someone making you feel afraid or unsafe? 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 Gender Identity Not on file Sexual Orientation Not on file Obstetrics History Last Filed Vital Signs Vital Sign Reading Time Taken Comments Blood Pressure 137/87 03/09/2024 11:04 AM CDT Pulse 95 03/09/2024 11:04 AM CDT Temperature 36.3 C (97.3 F) 03/09/2024 11:04 AM CDT Respiratory Rate 18 06/03/2023 6:01 AM CDT Oxygen Saturation 97% 03/09/2024 11:04 AM CDT Inhaled Oxygen Concentration - - Weight 60.5 kg (133 lb 4.8 oz) 03/09/2024 11:04 AM CDT Height 162.6 cm (5' 4) 03/09/2024 11:04 AM CDT Body Mass Index 22.88 03/09/2024 11:04 AM CDT Plan of Treatment Health Maintenance Due Date Last Done Comments Depression Screening 1950 Hepatitis C Screening 1950 Hepatitis B Screening 02/05/1968 Pneumococcal vaccine 65+ (1 of 2 - PCV) 1969 Zoster Vaccine (1 of 2) 02/05/2000 Well Visit 65+ 2015 DTaP/Tdap/Td Vaccine (2 - Td or Tdap) 08/28/2018 08/28/2008 Colon Cancer Screening-Colonoscopy 12/01/2021 12/02/2011 Fall Risk Assessment 06/02/2024 06/02/2023 Osteoporosis Screening-Bone Density Scan 09/20/2024 09/20/2022, 09/20/2022, 06/11/2020, Additional history exists Influenza Vaccine (#1) 2025 11/21/2013 Breast Cancer Screening-Mammogram Discontinued 09/20/2022, 07/27/2021, 06/30/2020, Additional history exists Procedures Procedure Name Priority Date/Time Associated Diagnosis Comments DEXA AXIAL SKELETON BONE DENSITY 1 OR MORE SITES Schedule Routine, Read Routine (OP Routine) 06/11/2020 12:47 PM CDT Asymptomatic menopausal state COLONOSCOPY 12/02/2011 12:00 AM CDT from Last 3 Months or Most Recently Relevant to Health Maintenance Results * Dexa Axial Skeleton Bone Density 1 or 2 Site (06/11/2020 12:47 PM CDT) Anatomical Region Laterality Modality Body N/A Other 06/11/2020 12:4 9 PM CDT Impressions 06/11/2020 12:50 PM CDT According to the World Health Organization criteria, based upon the left femur bone mineral density (T score value of -0.3), the patient has normal bone mineralization. General Recommendations: 1. Consider an evaluation for secondary causes of osteoporosis in patients with low bone density. 2. All patients should be counseled on adequate intake of calcium (1200 mg/day), vitamin D (600-800 IU daily) and exercise. 3. The National Osteoporosis Foundation (NOF) guidelines recommend initiating pharmacological therapy, in addition to calcium, vitamin D and exercise, to reduce fracture risk when: a. T-score less than or equal to -2.5 after secondary causes excluded. b. T-score between -1.0 and -2.5 with secondary causes associated with high risk of fracture. c. 10-year probability of hip fracture more than or equal to 3% (based on FRAX score). d. 10-year probability of major osteoporosis related fracture more than or equal to 20% (based on FRAX score). Followup: People with diagnosed cases of osteoporosis or at high risk for fracture should have regular bone mineral density tests. For patients eligible for Medicare, routine testing is allowed once every 2 years. The testing frequency can be increased to one year for patients who have rapidly progressive disease or those who are receiving long-term steroid therapy. Electronically signed by: Kenan Figueroa 06/11/2020 12:50 PM CDT COMPLETION DATE: 06/11/2020 1:00 PM ORDERING HEALTHCARE PROVIDER: NICK RUBI STUDY DESCRIPTION: DEXA AXIAL SKELETON BONE DENSITY 1 OR MORE SITES CLINICAL INDICATIONS: DEXA . COMPARISON: 04/22/2016 TECHNIQUE: Dual x-ray absorptiometry (DEXA) was performed using [employer]! system. GENERAL GUIDELINES: According to WHO guidelines, a T score of -1.0 or greater is normal, between -1.0 to -2.4 is osteopenia, and -2.5 or less is osteoporosis. Z score (instead of T score) is preferred for pediatric, young adults, premenopausal women and men under age of 50 years. In these patients, a Z score greater than or equal to -2.0 is considered to be in the expected range. FINDINGS: LEFT FEMORAL NECK: T-score -0.3 LEFT TOTAL HIP: T-score -0.3 LUMBAR SPINE: T-score 0.6 There has been a statistically significant -4.4% change in total lumbar spine bone mineral density and a statistically significant -3.7% change in mean total hip bone mineral density since prior. A FRAX score based upon a DXA study is not reported unless all of the following criteria are met. The patient: a. Is an untreated postmenopausal woman or a man age 50 or older. b. Has low bone mass (T-score between -1.0 and -2.5). c. Has no prior hip or vertebral fracture (clinical or morphometric). d. Has an evaluable hip for DXA study. Procedure Note Omero Buckner, DO - 06/11/2020 COMPLETION DATE: 06/11/2020 1:00 PM ORDERING HEALTHCARE PROVIDER: NICK RUBI STUDY DESCRIPTION: DEXA AXIAL SKELETON BONE DENSITY 1 OR MORE SITES CLINICAL INDICATIONS: DEXA . COMPARISON: 04/22/2016 TECHNIQUE: Dual x-ray absorptiometry (DEXA) was performed using [employer]! system. GENERAL GUIDELINES: According to WHO guidelines, a T score of -1.0 or greater is normal, between -1.0 to -2.4 is osteopenia, and -2.5 or less is osteoporosis. Z score (instead of T score) is preferred for pediatric, young adults, premenopausal women and men under age of 50 years. In these patients, a Z score greater than or equal to -2.0 is considered to be in the expected range. FINDINGS: LEFT FEMORAL NECK: T-score -0.3 LEFT TOTAL HIP: T-score -0.3 LUMBAR SPINE: T-score 0.6 There has been a statistically significant -4.4% change in total lumbar spine bone mineral density and a statistically significant -3.7% change in mean total hip bone mineral density since prior. A FRAX score based upon a DXA study is not reported unless all of the following criteria are met. The patient: a. Is an untreated postmenopausal woman or a man age 50 or older. b. Has low bone mass (T-score between -1.0 and -2.5). c. Has no prior hip or vertebral fracture (clinical or morphometric). d. Has an evaluable hip for DXA study. IMPRESSION: According to the World Health Organization criteria, based upon the left femur bone mineral density (T score value of -0.3), the patient has normal bone mineralization. General Recommendations: 1. Consider an evaluation for secondary causes of osteoporosis in patients with low bone density. 2. All patients should be counseled on adequate intake of calcium (1200 mg/day), vitamin D (600-800 IU daily) and exercise. 3. The National Osteoporosis Foundation (NOF) guidelines recommend initiating pharmacological therapy, in addition to calcium, vitamin D and exercise, to reduce fracture risk when: a. T-score less than or equal to -2.5 after secondary causes excluded. b. T-score between -1.0 and -2.5 with secondary causes associated with high risk of fracture. c. 10-year probability of hip fracture more than or equal to 3% (based on FRAX score). d. 10-year probability of major osteoporosis related fracture more than or equal to 20% (based on FRAX score). Followup: People with diagnosed cases of osteoporosis or at high risk for fracture should have regular bone mineral density tests. For patients eligible for Medicare, routine testing is allowed once every 2 years. The testing frequency can be increased to one year for patients who have rapidly progressive disease or those who are receiving long-term steroid therapy. Electronically signed by: Omero Buckner D.O. Nick SCHMITT IMG DXA PROCEDUR ES Final Result * COLONOSCOPY (12/02/2011 12:00 AM CDT) Anatomical Region Laterality Modality Other Narrative 12/02/2011 12:00 AM CDT Ordered by an unspecified provider. Procedure Note Provider, MD Linda - 12/02/2011 12:00 AM CDT PROCEDURE REPORT Patient: THERESA GALAN Account: [id number] Room No: : 1950 Patient Type: [facility] Attend.: Christian Noland M.D. Admit Date: 12/02/2011 Dict.: Christian Noland M.D. Disch. Date: NAME OF PROCEDURE: Colonoscopy. HISTORY: 61-year-old female with blood in the stool. PHYSICAL EXAMINATION: Well-developed female. Lungs are clear.Cardiovascular examination is unremarkable. PROCEDURE: Colonoscopy was performed with a [employer] videoendoscope.The patient was premedicated by Anesthesia. On digital examination she hasgot grade 2 hemorrhoids. We inserted the endoscope and immediately just saw diffuse melanosis coli. Sigmoid diverticula were noted as we advanced,and we went from there to the cecum. The colon was otherwise well-prepped and visualized. We carefully searched the colonic mucosa and could find no evidence of inflammation and neoplasia. The patient tolerated theprocedure without difficulty. POSTOPERATIVE DIAGNOSES: 1. Sigmoid diverticulosis. 2. Hemorrhoidal disease. 3. Diffuse melanosis coli. Christian Noland M.D. /kindra TD: 12/02/2011 12:44 CC: José Daniel M.D. Authenticated by Christian Noland MD On 12/04/2011 08:33:09 AM Historical Provider MD ENDOSCOPY PROCEDURES Sharda l Result from Last 3 Months or Most Recently Relevant to Health Maintenance Insurance [facility] Address: [address] [address] [place] [address] [facility] Address: [address] [address] [place] [address] [facility] Address: [facility] [id number] [place] [id number] Care Teams Assembler Surgical Garment Relationship Specialty Start Date End Date Nick Rubi PA PCP - General 05/15/20
--- OUTSIDE RECORDS SUMMARY | 2025-05-11 10:26 | XMS_ITS | Clinical Summary ---
Author Organization [facility] Address [address] [place] [address] Phone Care Team Providers Care Biomedical Engineering Aide Name Role Phone Emmy Song Primary Care Provider Allergies Active Allergy Reactions Criticality Noted Date Comments Codeine Unknown Fenofibrate Unknown Isothiazolinone Chloride Unknown Statins Unknown Ezetimibe Unknown Medications amLODIPine (NORVASC) 10 MG Tablet TAKE 1 TABLET DAILY 90 Tab 3 11/06/2015 Active methylPREDNISol one (MEDROL DOSPACK) 4 MG Tablet Therapy Pack See product package insert for dosing schedule 21 Tablet 12/13/2021 Active Active Problems Problem Noted Date Diagnosed Date HTN (hypertension) Insomnia Panic attacks HLD (hyperlipidemia) DM2 (diabetes mellitus, type 2) Overview (07/03/2015): Pre Social History Tobacco Use Types Packs/Day Years Used Date Smoking Tobacco: Every Day Smokeless Tobacco: Never Comments No Sex and Gender Information Value Date Recorded Sex Assigned at Not on file Legal Sex Female 8:01 PM CDT Gender Identity Not on file Sexual Orientation Not on file Last Filed Vital Signs Vital Sign Reading Time Taken Comments Blood Pressure 136/83 01/31/2025 4:30 AM CDT Pulse 74 01/31/2025 4:30 AM CDT Temperature 36.4 C (97.6 F) 01/31/2025 3:27 AM CDT Respiratory Rate 17 01/31/2025 3:27 AM CDT Oxygen Saturation 97% 01/31/2025 4:30 AM CDT Inhaled Oxygen Concentration - - Weight 54.7 kg (120 lb 9.5 oz) 01/31/2025 3:27 A M CDT Height 162.6 cm (5' 4) 01/31/2025 3:27 AM CDT Body Mass Index 20.7 01/31/2025 3:27 AM CDT Plan of Treatment Health Maintenance Due Date Last Done Comments Diabetes: Eye Exam 1950 Diabetes: Foot Exam 1950 Diabetes: Hemoglobin A1c 1950 Hepatitis C Virus (HCV) Screening 1950 Diabetes: Nephropathy Screening 02/05/1968 Pneumococcal Immunization (50+ years) (1 of 2 - PCV) 1969 Cologuard 1995 Immunochemical Fecal Occult Blood 1995 Zoster Immunization (1 of 2) 02/05/2000 Respiratory Syncytial Virus (RSV) Immunization (Adult) (1 - 1-dose 75+ series) 2025 Influenza Immunization (#1) 2025 SARS-COV-2 Immunization ( season) 2025 DEXA Bone Density 09/24/2026 09/24/2024, , 06/11/2020, Additional history exists Colonoscopy 08/08/2031 08/08/2021 Colorectal Cancer Screening 08/08/2031 DTaP/Tdap/Td Immunization Discontinued 08/28/2008 TdaP Immunization Completed 08/28/2008 Mammogram Discontinued 09/24/2024, 02/08/2024, 11/16/2023, Additional history exists Hepatitis B Immunization Aged Out No longer eligible based on patient's age to complete this topic Human Papillomavirus (HPV) Immunization Aged Out No longer eligible based on patient's age to complete this topic Meningococcal Immunization (ACWY) Aged Out No longer eligible based on patient's age to complete this topic Rotavirus Immunization Aged Out No lo nger eligible based on patient's age to complete this topic [facility] Care Teams Biomedical Engineering Aide Relationship Specialty Start Date End Date Emmy Song PA [address] [place] [address] PCP - General Family Medicine 01/31/25
[2025-05-11 10:27] LABS: Estimated Glomerular Filt Rate > 60
== END 2025-05-11 09:51 | disposition home or self-care (01) ==
PROVIDERS: PCP Physician Assistant; Visit Provider Physician Assistant
DX: R19.7 Diarrhea, unspecified (principal); N30.90 Cystitis, unspecified without hematuria
CPT/HCPCS: 74177; Q9967

== ENCOUNTER 2025-07-14 03:12 | Day surgery (SDC) | payer MEDICARE, SELFPAY ==
[2025-06-27 13:40] VITALS: BMI 20.4
--- OUTSIDE RECORDS SUMMARY | 2025-07-14 03:19 | XMS_ITS | Encounter Summary ---
Author Organization [facility] Address [address] [place] [address] Care Team Providers Care Grab Driver Name Role Phone Emmy Song Primary Care Pr ovider Encounter Details Date Type Department Care Team (Late st Contact Info) Description 06/08/2020 Telephone [facility] [address] [place] [address] Edda Montalvo, RT Social History Tobacco Use Types Packs/Day Years Used Date Smoking Tobacco: Every Day Comments:Smoking History Pac ks/day: 0 Packs Alcohol Use Standard Drinks/Week Comments No 0 (1 standard drink = 0.6 oz pur e alcohol) Comments Unknown Sex and Gender Information Value Date Recorded Sex Assigned at Not on file Legal Sex Female 11:53 PM SIDEROGRAPHER Gender Identity Not on file Sexual Orientation [...] documented as of this encounter Care Teams Grab Driver Relationship Specialty Start Date End Date Emmy Song PA PCP - General 05/15/20 documented as of this encounter
--- OUTSIDE RECORDS SUMMARY | 2025-07-14 03:19 | XMS_ITS | Continuity of Care Document ---
Author Organization [place], [facility] Dalton Burton Address [address] [place] [address] Care Team Providers Care Progress Developer Name Role Phone NICK RUBI Primary Care Provider Unavailab le Assessment Encounter Date Assessment Date Assessment LastModified by Organization Details LastModified Time 06/06/2025 06/06/2025 diagnostic mammogram: BI-RADS assessment category: Category 2, benign findings Recommendatio n: Return to annual mammograms, or earlier if clinically indicated. this was oct 19, 2024 colonoscopy booked for 2024. see consult note from GI. eye and dental exams always up to date per patient. Not available 06/06/2025 14:21:07 Plan of Treatment Reminders Order Date Submit Date Provider Last Modified By Organization Details Last Modified Time Details Appointments ANY 15 2025 01:00P M KESHIA Felix Not available Not available Not available Lab hepatic function panel, serum 2024 Tymphany [facility], [address] [place], [address], 06/18/2025 03:37:24 BMP, serum or plasma 2024 025 Tymphany [facility], [address] [place], [address], 06/18/2025 03:37:24 CBC w/ auto diff 2024 025 Tymphany [facility], [address] [place], [address], 06/18/2025 03:37:25 TSH + free T4, serum 2024 [facility] [address] [place], [address], 06/18/2025 03:37:24 HbA1c (hemoglob in A1c), blood [address]24 [facility] [address] [place], [address], 06/18/2025 03:37:25 vitamin D, 25-hydrox y, total, serum 2024 [facility] [address] [place], [address], 06/18/2025 03:37:25 lipid panel, serum 2024 [facility] [address] [place], [address], 06/18/2025 03:37:23 Referral None recorded. Procedures None recorded. Surgeries None recorded. Imaging None recorded. Medication Orders None recorded. Patient TargetsNo targets recorded. Patient InstructionsNo instructions recorded. Reason for Referral None Reported. Results Created Date Observation Date Name Description Value Unit Range Abnormal Flag Note LastModifiedBy Organization Detail LastModifiedTime 06/16/2006/18/2025 LIPID PANEL WITH RATIO S cholesterol, total 254 mg/dL <200 high Not Available [facility] [address] [place], [address], 06/18/2025 03:37:23 06/16/2006/18/2025 LIPID PANEL WITH RATIO S HDL cholesterol 64 mg/dL > or = 50 normal Not Available [facility] [address] [place], [address], 06/18/2025 03:37:23 06/16/2006/18/2025 LIPID PANEL WITH RATIO S triglyceride s 96 mg/dL <150 normal Not Available [facility] [address] [place] [address], [address], 06/18/2025 03:37:23 06/16/2006/18/2025 LIPID PANEL WITH RATIO S LDL-choleste rol 169 mg/dL _(darrino c) high Refer ence range : <100 Marifer able range <100 mg/dL for prima ry preve ntion ; <70 mg/dL for patie nts with CHD or diabe tic patie nts with > or = 2 CHD risk facto rs. LDL-C is now calcu lated using the Blanca n-Hop kins calcu latio n, which is a valid ated novel kalyani pham accur acrussell than the Fried slime equat ion in the estim ation of LDL-C . Blanca suarez SS et al. PAUL. 2013; 310(1 9): 2061- 2068 (http ://ed ucati on.Qu Ever Heetch. com/f aq/FA Q164) Not Available [address], [address], 06/18/2025 03:37:23 06/16/2006/18/2025 LIPID PANEL WITH RATIO S chol/HDLC ratio 4.0 (calc ) <5.0 normal Not Available [address], [address], 06/18/2025 03:37:23 06/16/2006/18/2025 LIPID PANEL WITH RATIO S LDL/HDL ratio 2.6 (calc ) Below avera ge Risk: <2.34 [place] ge Risk: 2.35- 4.12 Moder ate Risk: 4.13- 5.56 High Risk: >5.57 Not Available [address], [address], 06/18/2025 03:37:23 06/16/2006/18/2025 LIPID PANEL WITH RATIO S non HDL cholesterol 190 mg/dL _(darrion c) <130 high For patie nts with diabe fernandez plus 1 major ASCVD risk facto r, treat ing to a non-H DL-C goal of <100 mg/dL (LDL- C of <70 mg/dL ) is heather ford n. Not Available [address], [address], 06/18/2025 03:37:23 06/16/2006/18/2025 TSH+F REE T4 TSH 1.41 mIU/L 0.40-4 .50 normal Not Available [address], [address], 06/18/2025 03:37:24 06/16/2006/18/2025 TSH+F REE T4 T4, free 1.0 NG/dL 0.8-1. 8 normal Not Available [address], [address], 06/18/2025 03:37:24 06/16/2006/18/2025 BASIC METAB OLIC PANEL glucose 79 mg/dL 65-99 normal Fasti ng refer ence inter eloy Not Available [address], [address], 06/18/2025 03:37:24 06/16/2006/18/2025 BASIC METAB OLIC PANEL urea nitrogen (BUN) 14 mg/dL 7-25 normal Not Available [address], [address], 06/18/2025 03:37:24 06/16/2006/18/2025 BASIC METAB OLIC PANEL creatinine 0.67 mg/dL 0.60-1 .00 normal Not Available [address], [address], 06/18/2025 03:37:24 06/16/20 25 06/18/2025 BASIC METAB OLIC PANEL eGFR 91 mL/mi n/1.7 3m2 > or = 60 normal Not Available [address] [address] [place], [address], 06/18/2025 03:37:24 06/16/2006/18/2025 BASIC METAB OLIC PANEL BUN/creatini ne ratio SEE NOTE: (calc ) 6-22 Not Repor cara: BUN and Creat inine are withi n refer ence range . Not Available [address], [address], 06/18/2025 03:37:24 06/16/2006/18/2025 BASIC METAB OLIC PANEL sodium 140 mmol/ L 135-14 6 normal Not Available [address], [address], 06/18/2025 03:37:24 06/16/2006/18/2025 BASIC METAB OLIC PANEL potassium 4.4 mmol/ L 3.5-5. 3 normal Not Available [address] [address] [place], [address], 06/18/2025 03:37:24 06/16/2006/18/2025 BASIC METAB OLIC PANEL chloride 103 mmol/ L 98-110 normal Not Available [address] [address] [place], [address], 06/18/2025 03:37:24 06/16/2006/18/2025 BASIC METAB OLIC PANEL carbon dioxide 30 mmol/ L 20-32 normal Not Available [address], [address], 06/18/2025 03:37:24 06/16/2006/18/2025 BASIC METAB OLIC PANEL calcium 9.9 mg/dL 8.6-10 .4 normal Not Available [address] [address] [place], [address], 06/18/2025 03:37:24 06/16/2006/18/2025 HEPAT IC FUNCT ION PANEL protein, total 6.9 g/dL 6.1-8. 1 normal Not Available [address], [address], 06/18/2025 03:37:24 06/16/2006/18/2025 HEPAT IC FUNCT ION PANEL albumin 4.3 g/dL 3.6-5. 1 normal Not Available [address], [address], 06/18/2025 03:37:24 06/16/2006/18/2025 HEPAT IC FUNCT ION PANEL globulin 2.6 g/dL_ (calc ) 1.9-3. 7 normal Not Available [address], [address], 06/18/2025 03:37:24 06/16/2006/18/2025 HEPAT IC FUNCT ION PANEL albumin/glob ulin ratio 1.7 (calc ) 1.0-2. 5 normal Not Available [address], [address], 06/18/2025 03:37:24 06/16/20 25 06/18/2025 HEPAT IC FUNCT ION PANEL bilirubin, total 0.6 mg/dL 0.2-1. 2 normal Not Available [address], [address], 06/18/2025 03:37:24 06/16/2006/18/2025 HEPAT IC FUNCT ION PANEL bilirubin, direct 0.1 mg/dL < or = 0.2 normal Not Available [address], [address], 06/18/2025 03:37:24 06/16/20 25 06/18/2025 HEPAT IC FUNCT ION PANEL bilirubin, indirect 0.5 mg/dL _(darrion c) 0.2-1. 2 normal Not Available [address], [place], [address], 06/18/2025 03:37:24 06/16/2006/18/2025 HEPAT IC FUNCT ION PANEL alkaline phosphatase 65 U/L 37-153 normal Not Available [address], [address], 06/18/2025 03:37:24 06/16/2006/18/2025 HEPAT IC FUNCT ION PANEL AST 27 U/L 10-35 normal Not Available [address], [address], 06/18/2025 03:37:24 06/16/2006/18/2025 HEPAT IC FUNCT ION PANEL ALT 20 U/L 6-29 normal Not Available [address], [address], 06/18/2025 03:37:24 06/16/2006/18/2025 CBC (INCL UDES DIFF/ PLT) white blood cell count 6.7 thous and/u L 3.8-10 .8 normal Not Available [address], [address], 06/18/2025 03:37:25 06/16/2006/18/2025 CBC (INCL UDES DIFF/ PLT) red blood cell count 4.55 fannie on/uL 3.80-5 .10 normal Not Available [address], [address], 06/18/2025 03:37:25 06/16/2006/18/2025 CBC (INCL UDES DIFF/ PLT) hemoglobin 14.3 g/dL 11.7-1 5.5 normal Not Available [address], [address], 06/18/2025 03:37:25 06/16/2006/18/2025 CBC (INCL UDES DIFF/ PLT) hematocrit 43.8 % 35.0-4 5.0 normal Not Available [address], [address], 06/18/2025 03:37:25 06/16/2006/18/2025 CBC (INCL UDES DIFF/ PLT) MCV 96.3 fL 80.0-1 00.0 normal Not Available [address], [address], 06/18/2025 03:37:25 06/16/2006/18/2025 CBC (INCL UDES DIFF/ PLT) MCH 31.4 pg 27.0-3 3.0 normal Not Available [address], [address], 06/18/2025 03:37:25 06/16/2006/18/2025 CBC (INCL UDES DIFF/ PLT) MCHC 32.6 g/dL 32.0-3 6.0 normal For adult s, a sligh t decre ase in the calcu lated MCHC value (in the range of 30 to 32 g/dL) is most likel y not clini terri signi ficalesia t; doron er, it shoul d be inter prete d with cauti on in [facility] lat n with other red cell bhavani eters and the patie nt's clini darrion condi tion. Not Available [address], [address], 06/18/2025 03:37:25 06/16/2006/18/2025 CBC (INCL UDES DIFF/ PLT) RDW 12.2 % 11.0-1 5.0 normal Not Available [address], [address], 06/18/2025 03:37:25 06/16/2006/18/2025 CBC (INCL UDES DIFF/ PLT) platelet count 211 thous and/u L 140-40 0 normal Not Available [facility] [address] [place], [address], 06/18/2025 03:37:25 06/16/2006/18/2025 CBC (INCL UDES DIFF/ PLT) MPV 9.4 fL 7.5-12 .5 normal Not Available [address], [address], 06/18/2025 03:37:25 06/16/2006/18/2025 CBC (INCL UDES DIFF/ PLT) absolute neutrophils 4496 cells /uL 1500-7 800 normal Not Available [address], [address], 06/18/2025 03:37:25 06/16/2006/18/2025 CBC (INCL UDES DIFF/ PLT) absolute lymphocytes 1608 cells /uL 850-39 00 normal Not Available [address], [address], 06/18/2025 03:37:25 06/16/2006/18/2025 CBC (INCL UDES DIFF/ PLT) absolute monocytes 409 cells /uL 200-95 0 normal Not Available [address], [address], 06/18/2025 03:37:25 06/16/2006/18/2025 CBC (INCL UDES DIFF/ PLT) absolute eosinophils 141 cells /uL 15-500 normal Not Available [address], [address], 06/18/2025 03:37:25 06/16/2006/18/2025 CBC (INCL UDES DIFF/ PLT) absolute basophils 47 cells /uL 0-200 normal Not Available [address], [address], 06/18/2025 03:37:25 06/16/2006/18/2025 CBC (INCL UDES DIFF/ PLT) neutrophils 67.1 % normal Not Available [address], [address], 06/18/2025 03:37:25 06/16/2006/18/2025 CBC (INCL UDES DIFF/ PLT) lymphocytes 24.0 % normal Not Available [address], [address], 06/18/2025 03:37:25 06/16/2006/18/2025 CBC (INCL UDES DIFF/ PLT) monocytes 6.1 % normal Not Available [address], [address], 06/18/2025 03:37:25 06/16/20 25 06/18/2025 CBC (INCL UDES DIFF/ PLT) eosinophils 2.1 % normal Not Available [address], [address], 06/18/2025 03:37:25 06/16/20 25 06/18/2025 CBC (INCL UDES DIFF/ PLT) basophils 0.7 % normal Not Available [address], [address], 06/18/2025 03:37:25 06/16/2006/18/2025 VITAM IN D,25- OH,TO ZACKARY,I A vitamin D,25-oh,tota l,ia 70 NG/mL 30-100 normal Vitam in D Statu s 25-OH Vitam in D: Defic iency : <20 ng/mL Insuf ficie ncy: 20 - 29 ng/mL Optim al: > or = 30 ng/mL For 25-OH Vitam in D testi ng on patie nts on D2-garcia pplem entat ion and patie nts for whom quant itati on of D2 and D3 fract ions is requi red, the [facility] e[facility](TM ) 25-OH VIT D, (D2,D 3), LC/MS /MS is recom sallie d: order code 29108 (shonna ents >2yrs ). See Note 1 Note 1 For addit ional infor calista conte refer to http: //darlene manzanares ics.c om/fa q/FAQ 199 (This link is being provi ded for infor rosendo ricardo/ educmaisha santos purpo ses only. ) Not Available [facility] [address] [place], [address], 06/18/2025 03:37:25 06/16/2006/18/2025 HEMOG LOBIN A1C hemoglobin A1C 5.4 %_of_ total _HGB <5.7 normal For the purpo se of screbailey vacag for the prese nce of diabe fernandez: <5.7% Consi stent with the absen ce of diabe fernandez 5.7-6 .4% Consi stent with incre ased risk for diabe fernandez (pred iabet es) > or =6.5% Consi stent with diabe fernandez This assay resul t is consi stent with a decre ased risk of diabe fernandez. Curre ntly, no conse nsus exist s rakesh santamaria use of hemog lobin A1c for diagn osis of diabe fernandez in child tiffany. Accor ding to Ameri can Diabe fernandez Assoc iatio n (ADA) guide lines , hemog lobin A1c <7.0% repre sents optim al contr ol in non-p regna nt diabe tic patie nts. Diffe rent metri cs may apply to speci fic patie nt popul ation s. Stand ards of Medic al Care in Diabe fernandez(A DA). Not Available [facility] [address], [place], [address], 06/18/2025 03:37:25 05/11/2005/11/2025 CT, abdom en + pelvi s, w/ contr ast No observ ation record ed. [place] [id number], [place], [address], 05/12/2025 16:43:49 Result Notes None recorded. Problems Name Problem SNOMED Code Status Onset Date Resolution Date Notes Provider Name and Address Organization Details Recorded Time Body mass index 20-24 - normal 473554806 Active 2023 Cris Graff MA null, [place] - [facility] 4 15:18:47 Osteopenia 116483815 Active 2023 KESHIA Felix Attn: David ty[address] [place], [address], [place] [facility] 5 14:08:14 Long-term drug therapy Active 2023 KESHIA Felix Attn: David g,[address] [place], [address], [place] [facility] 4 23:49:34 Blood glucose outside reference range 264564452 Active 2023 KESHIA Felxi Attn: David g,[address] [place], [address], [place] [facility] 4 23:49:56 Hyperlipidemia 05198084 Active 2023 KESHIA Felix Attn: David g[address] [place], [address], [place] [facility] 5 14:08:10 Benign essential hypertension 6769457 Active 2023 KESHIA Felix Attn: David g[address] [place], [address], [place] [facility] 5 14:08:09 Body mass index less than 20 071165904 Active 2024 KESHIA Felix Attn: David g,[address] [place], [address], [place] [facility] 5 14:27:37 Anxiety 59774418 Active 2024 KESHIA Felix Attn: David ty[address] [place], [address], [place] 5 07:27:35 Cholelithiasis without obstruction 41919817 Active 2024 KESHIA Felix Attn: David ty,[address] [facility], [place], [address], [facility] - [facility] 5 14:03:34 Long-term current use of drug therapy 974711742 Active 2024 KESHIA Felix Attn: David ty,[address], [place], [address], [facility] - [facility] 14:19:52 Problem Notes None recorded. Procedures Surgical History Date Name Laterality Status Provider Name and Address Organization Details Recorded Time Appendectomy completed Cris Graff MA [facility] 04/28/2024 15:12:11 hysterectomy completed Cris Graff MA [facility] 04/28/2024 15:15:32 Tonsillectomy completed Cris Graff MA [facility] 04/28/2024 15:15:39 Breast reduction completed Cris Graff MA [facility] 04/28/2024 15:15:44 Eye Surgery completed Cris Graff MA [facility] 04/28/2024 15:15:58 Imaging Results None recorded. Procedure Notes None recorded. Medical Equipment None Reported. Allergies Allergen ID Allergen Name Allergen Category Reaction Reaction Severity Criticality Documentation Date Start Date Code Code System Note Provider Name and Address Organization Details Recorded Time 658176 codeine medicatio n vomiting severe high 03/09/2024 2670 RxNorm Elisa Hoover LPN null, [place] - [place] 4 17:34:55 298066 latex environme nt,medica tion rash moderate high 03/09/2024 06464 91 RxNorm Elisa Hoover LPN null, [place] 4 17:35:53 425412 cephalexi n medicatio n Not available Not available high 04/19/2025 2231 RxNorm React ion: Menta l Statu s Awad es, faint ing, unrec ogniz ed react ion (text : Synco pe, code: 11689 4007) (from [facility]) unrec ogniz ed react ion (text : Mentmaisha awad , code: 23559 4004) (from [facility]) HERON Muñoz, [place] - [facility] 14:05:03 967638 ezetimibe medicatio n Not available Not available Not available 04/19/2025 02993 8 RxNorm unrec ogniz ed react ion (text : Unkno wn, code: 78416 5006) (from [facility]) HERON Mñuoz, [place] - [facility] 14:05:05 618282 fenofibra te medicatio n Not available Not available Not available 06/06/2025 8703 RxNorm unrec ogniz ed react ion (text : Unkno wn, code: 48089 5006) (from [facility]) HERON Muñoz, [place] - [facility] 13:54:56 Medications Name Sig Start Date Stop Date Status Note LastModified by Organization Details LastModified Time metronidazole 500 mg tablet Take 1 tablet every 8 hours by oral route for 7 days. 05/26 completed Not Available Not Available Not Available ciprofloxacin 500 mg tablet Take 1 tablet every 12 hours by oral route for 7 days. 05/26 completed Not Available Not Available Not Available amlodipine 10 mg tablet TAKE ONE TABLET BY MOUTH ONE TIME DAILY active Not Available Not Available No t Available clotrimazole- betamethasone 1 %-0.05 % topical cream active Not Available Not Availabl e Not Available clobetasol 0.05 % topical ointment active Not Available Not Available Not Available Vitals Date Recorded Body mass index (BMI) Body weight Respiratory rate Systolic And Diastolic Provider Name and Address Organization Details Last Updated DateTime 06/06/2025 20 kg/m2 51567.73 g 18 /min 130/80 mm[Hg] KESHIA Felix Attn: Accounting [address] [place], [address] , [place] [facility] [place] 06/06/2025 14:19:32 Date Recorded Body height Oxygen saturation Heart rate Systolic And Diastolic Provider Name and Address Organization Details Last Updated DateTime 06/06/2025 165.1 cm 99 % 71 /min 128/82 mm[Hg] Cris Graff MA [facility] 06/06/2025 13:57:12 Social History Question Answer Notes LastModified by Organizat ion Details LastModified Time Tobacco Smoking Status Current Every Day Smoker Cris Graff MA null, [facility] 04/28/2024 15:13:27 Do You Have An Advance Directive? Yes Information n ot available 04/28/2024 Are You Blind Or Do You Have Difficulty Seeing? No Information n ot available 04/28/2024 What Is Your Level Of Caffeine Consumption? Moderate Information not available 04/28/2024 In The 14 Days Before Symptom Onset, Have You Had Close Contact With A Laboratory-confirm ed COVID-19 While That Case Was Ill? No Information n ot available 04/28/2024 In The 14 Days Before Symptom Onset, Have You Had Close Contact With A Person Who Is Under Investigation For COVID-19 While That Person Was Ill? No Information not available 04/28/2024 Have You Been To An Area Known To Be High Risk For COVID-19? No Information not available 04/28/2024 Are You Deaf Or Do You Have Serious Difficulty Hearing? No Information not available 04/28/2024 What Type Of Diet Are You Following? REGULAR Information n ot available 04/28/2024 Are There Any Guns Present In Your Home? Yes Information not available 04/28/2024 What Was The Date Of Your Most Recent Tobacco Screening? 06/06/2025 Information not available 06/06/2025 What Is Your Current Pack Years? 30ormorepacky ears Information not available 04/28/2024 What Is Your Relationship Status? Information not available 04/28/2024 Do You Use Your Seat Belt Or Car Seat Routinely? Yes Information not available 04/28/2024 Do You Have Smoke And Carbon Monoxide Detectors In Your Home? Yes Information not available 04/28/2024 At What Age Did You Start Smoking Tobacco? 25 Information not available 04/28/2024 How Much Tobacco Do You Smoke? 0.5 PPD Information not available 04/28/2024 Do You Use Sunscreen Routinely? No Information not available 04/28/2024 Has Tobacco Cessation Counseling Been Provided? No Information not available 04/28/2024 Sex: Female Functional Status Question Answer Note LastModified by Organizat ion Details LastModified Time Do you use any illicit or recreational drugs? No Information not available 04/28/2024 Do you or have you ever used any other forms of tobacco or nicotine? No Information not available 04/28/2024 What is your level of alcohol consumption? None Information not available 04/28/2024 Are you currently employed? Yes Information not available 04/28/2024 Are you able to care for yourself independently? Yes Information not available 04/28/2024 What is your occupation? Author Information not available 04/28/2024 What is your exercise level? Occasional Information not available 04/28/2024 Mental Status None recorded. Family History Relationship Description Onset Age of this Age Resolved Age Notes LastModified by Organization Details LastModified Time Father Hypertensive disorder tcarterma Not available 2023 15:11:53 Brother Diabetes mellitus tcarterma Not available 2023 15:12:03 Sister Family history of breast cancer tcarterma Not available 2023 15:12:26 Mother Dementia tcarterma Not availabl e 04/28/2024 15:12:41 Paternal Grandfather Diabetes mellitus tcarterma Not available 2023 15:12:49 Medical History Condition Response Diabetes N Coronary Artery Disease N Atrial Fibrillation N High Blood Pressure Y Cancer N Blood Clots N COPD N Depression N GI Problems N Skin Problems Y High Cholesterol Y Gynecological History Statement/Question Response Menses Monthly N Current Control Method Hysterectom y Obstetrics History GPAL:G 1 P 0 0 0 0 Immunizations Vaccine Type Date Status Note Provider Nam e and Address Organization Details Recorded Time influenza, split (incl. purified surface antigen) 11/21/2013 completed Not Available [facility] 13:49:07 Past Encounters Encounter ID Performer Location Encounter Start Date Encounter Closed Date Diagnosis/Indication Diagnosis SNOMED-CT Code Diagnosis ICD10 Code Diagnosis IMO Codes Diagnosis Note [id number] Ge Wynn MD [facility] [address] [place] [address] 06/06/2025 13:48:36 06/06/2025 14:49:25 Adult health examination 281982063 Z00.00 9124096 Annual wellness exam completed Benign ess ential hypertension 5820392 I10 Stable on amlodipine 10 mg daily. 130/80 today Hyperlipidemia 61600818 E78.5 Fasting lipid panel is due. Patient is managing with diet and exercise Osteopenia 974562307 M85 .80 History of osteopenia , DEXA scan 09/2024. Due for vitamin-D lab Blood gluc ose outside reference range 163857472 R73.09 Remotely A1c was above range but has dropped down last year into the normal range. She is due for updated labs Long-term current use of drug therapy 657574856 Z79.899 [id number] All routine labs were ordered fasting Cholelithi asis without obstruction 05089035 K80.20 [id number] Large gallstone noted incidental ly on CT scan. Asymptomat ic Health Concerns Section Related Observation LastModified by Organization Detai ls LastModified Time None Recorded Concern Status LastModified by Organization Details LastModified Time None Recorded Payers Encounter Date Sequence Insurance Name Policy Number Policy Ny Covered Member ID Ny Member ID Guarantor Name 06/06/2025 1 [facility] (MEDICARE REPLACEMENT/A DVANTAGE - HMO) [id number] Elzbieta Galan [id number] Elzbieta Galan Notes Date Note Type Note Provider Name and Address Organization Details Recorded Time 5 text/html HyperlipidemiaReported by PatientPatient has been controlling hyperlipidemia with her diet and exercise HypertensionReported by PatientPatient is taking amlodipine 10 mg daily for blood pressure management. She has no complaints Patient does have slight increase in A1c putting her in the prediabetes range and she has been managing with diet and exercise. KESHIA Felix Attn: Accounting[address] [place], [address], [place] [facility] 06/24/2025 22:46:10 OBGyn Episode No OBEpisode recorded.
--- OUTSIDE RECORDS SUMMARY | 2025-07-14 03:19 | XMS_ITS | Clinical Summary ---
Author Organization [facility] Address [address] [place] [address] Phone Care Team Providers Care [employer] Name Role Phone Emmy Song Primary Care [...] 1950 Hepatitis C Virus (HCV) Screening 1950 Varicella Immunization (1 of 2 - 13+ 2-dose series) 1963 Diabetes: Nephropathy Screening 02/05/1968 Pneumococcal Immunization (50+ years) (1 of 2 - PCV) 1969 Cologuard 1995 Immunochemical Fecal Occult Blood 1995 Zoster Immunization (1 of 2) 02/05/2000 Medicare Initial AWV [id number] 08/24/2022 Respiratory Syncytial Virus (RSV) Immunization (Adult) (1 - 1-dose 75+ series) 2025 Influenza Immunization (#1) 2025 SARS-COV-2 Immunization ( season) 2025 DEXA Bone Density 09/24/2026 09/24/2024, , 06/11/2020, Additional history exists Colonoscopy 08/08/2031 08/08/2021 Colorectal Cancer Screening 08/08/2031 DTaP/Tdap/Td Immunization Discontinued 08/28/2008 TdaP Immunization Completed 08/28/2008 Mammogram Discontinued 09/24/2024, 02/0 08/2024, 11/16/2023, Additional history exists Hepatitis B Immunization [...] to complete this topic Insurance MEDICARE C [employer] [place] [id number] Care Teams [employer] Relationship Specialty Start Date End Date Emmy Song PA [facility] [address] [place] [address] PCP - General Family Medicine 01/31/25
--- OUTSIDE RECORDS SUMMARY | 2025-07-14 03:19 | XMS_ITS | Data Portability ---
Author Organization [place] - [facility] truedash, Main Office Address [address] [place] [address] Assessment Encounter Date Assessment Date Assessment LastModified by Organization Details LastModified Time 07/24/2023 07/24/2023 dexa 2022 mammogram aug 2022 [email or web address] Not available 07/24/2023 15:32:18 Plan of Treatment Reminders Order Date Submit Date Provider Last Modified By Organization Details Last Modified Time Details Appointments None recorded. Lab HbA1c (hemoglobin A1c), blood 2022 023 [email or web address] [employer] [facility], [address], [place], [address], 3 11:52:04 hepatic function panel, serum 2022 023 [email or web address] [facility], [address], [place], [address], 3 11:52:04 BMP, serum or plasma 2022 023 [email or web address] [facility], [address], [place], [address], 3 11:52:04 CBC w/ auto diff 2022 023 PRAMOD [facility], [address], [place], [address], 3 11:20:10 TSH + free T4, serum 2022 023 [email or web address] [facility], [address], [place], [address], 3 11:52:04 lipid panel, serum 2022 023 [email or web address] [facility], [address], [place], [address], 3 11:52:04 Referral None recorded. Procedures None recorded. Surgeries None recorded. Imaging XR, hip + pelvis, unilateral 2022 023 PRAMOD Not available 09:09:33 Medication Orders None recorded. Patient TargetsNo targets recorded. Patient InstructionsNo instructions recorded. Reason for Referral None Reported. Results Created Date Observation Date Name Description Value Unit Range Abnormal Flag Note LastModifiedBy Organization Detail LastModifiedTime 07/23/2007/24/2021 CBC (INCL UDES DIFF/ PLT) white blood cell count 5.3 thous and/u L 3.8-10 .8 normal Not Available [facility] [address], [address], 07/24/2021 03:32:40 07/23/20 21 07/24/2021 CBC (INCL UDES DIFF/ PLT) red blood cell count 4.88 fannie on/uL 3.80-5 .10 normal Not Available [facility] [address], [address], 07/24/2021 03:32:40 07/23/20 21 07/24/2021 CBC (INCL UDES DIFF/ PLT) hemoglobin 15.2 g/dL 11.7-1 5.5 normal Not Available [facility] [address] [place], [place] [address], [place], [address], 07/24/2021 03:32:40 07/23/20 21 07/24/2021 CBC (INCL UDES DIFF/ PLT) hematocrit 44.6 % 35.0-4 5.0 normal Not Available [address], [address], 07/24/2021 03:32:40 07/23/20 21 07/24/2021 CBC (INCL UDES DIFF/ PLT) MCV 91.4 fL 80.0-1 00.0 normal Not Available [address], [address], 07/24/2021 03:32:40 07/23/20 21 07/24/2021 CBC (INCL UDES DIFF/ PLT) MCH 31.1 pg 27.0-3 3.0 normal Not Available [address], [address], 07/24/2021 03:32:40 07/23/20 21 07/24/2021 CBC (INCL UDES DIFF/ PLT) MCHC 34.1 g/dL 32.0-3 6.0 normal Not Available [address], [address], 07/24/2021 03:32:40 07/23/20 21 07/24/2021 CBC (INCL UDES DIFF/ PLT) RDW 11.7 % 11.0-1 5.0 normal Not Available [address], [address], 07/24/2021 03:32:40 07/23/20 21 07/24/2021 CBC (INCL UDES DIFF/ PLT) platelet count 230 thous and/u L 140-40 0 normal Not Available [address], [address], 07/24/2021 03:32:40 07/23/20 21 07/24/2021 CBC (INCL UDES DIFF/ PLT) MPV 10.1 fL 7.5-12 .5 normal Not Available [address], [address], 07/24/2021 03:32:40 07/23/20 21 07/24/2021 CBC (INCL UDES DIFF/ PLT) absolute neutrophils 3265 cells /uL 1500-7 800 normal Not Available [address], [address], 07/24/2021 03:32:40 07/23/20 21 07/24/2021 CBC (INCL UDES DIFF/ PLT) absolute lymphocytes 1489 cells /uL 850-39 00 normal Not Available [address], [address], 07/24/2021 03:32:40 07/23/20 21 07/24/2021 CBC (INCL UDES DIFF/ PLT) absolute monocytes 329 cells /uL 200-95 0 normal Not Available [address], [address], 07/24/2021 03:32:40 07/23/20 21 07/24/2021 CBC (INCL UDES DIFF/ PLT) absolute eosinophils 170 cells /uL 15-500 normal Not Available [address], [address], 07/24/2021 03:32:40 07/23/20 21 07/24/2021 CBC (INCL UDES DIFF/ PLT) absolute basophils 48 cells /uL 0-200 normal Not Available [address], [address], 07/24/2021 03:32:40 07/23/20 21 07/24/2021 CBC (INCL UDES DIFF/ PLT) neutrophils 61.6 % normal Not Available [address], [address], 07/24/2021 03:32:40 07/23/20 21 07/24/2021 CBC (INCL UDES DIFF/ PLT) lymphocytes 28.1 % normal Not Available [address], [address], 07/24/2021 03:32:40 07/23/20 21 07/24/2021 CBC (INCL UDES DIFF/ PLT) monocytes 6.2 % normal Not Available [address], [address], 07/24/2021 03:32:40 07/23/20 21 07/24/2021 CBC (INCL UDES DIFF/ PLT) eosinophils 3.2 % normal Not Available [address], [address], 07/24/2021 03:32:40 07/23/20 21 07/24/2021 CBC (INCL UDES DIFF/ PLT) basophils 0.9 % normal Not Available [address], [address], 07/24/2021 03:32:40 07/23/20 21 07/24/2021 HEPAT IC FUNCT ION PANEL protein, total 6.4 g/dL 6.1-8. 1 normal Not Available [address], [address], 07/24/2021 03:32:39 07/23/20 21 07/24/2021 HEPAT IC FUNCT ION PANEL albumin 4.3 g/dL 3.6-5. 1 normal Not Available [address], [address], 07/24/2021 03:32:39 07/23/20 21 07/24/2021 HEPAT IC FUNCT ION PANEL globulin 2.1 g/dL_ (calc ) 1.9-3. 7 normal Not Available [address], [address], 07/24/2021 03:32:39 07/23/20 21 07/24/2021 HEPAT IC FUNCT ION PANEL albumin/glob ulin ratio 2.0 (calc ) 1.0-2. 5 normal Not Available [address] [place], [address], 07/24/2021 03:32:39 07/23/20 21 07/24/2021 HEPAT IC FUNCT ION PANEL bilirubin, total 0.5 mg/dL 0.2-1. 2 normal Not Available [address], [address], 07/24/2021 03:32:39 07/23/20 21 07/24/2021 HEPAT IC FUNCT ION PANEL bilirubin, direct 0.1 mg/dL < or = 0.2 normal Not Available [address], [address], 07/24/2021 03:32:39 07/23/20 21 07/24/2021 HEPAT IC FUNCT ION PANEL bilirubin, indirect 0.4 mg/dL _(darrion c) 0.2-1. 2 normal Not Available [address], [address], 07/24/2021 03:32:39 07/23/20 21 07/24/2021 HEPAT IC FUNCT ION PANEL alkaline phosphatase 63 U/L 37-153 normal Not Available [address] [address] [place], [address], 07/24/2021 03:32:39 07/23/20 21 07/24/2021 HEPAT IC FUNCT ION PANEL AST 23 U/L 10-35 normal Not Available [address], [address], 07/24/2021 03:32:39 07/23/20 21 07/24/2021 HEPAT IC FUNCT ION PANEL ALT 20 U/L 6-29 normal Not Available [address] [address] [place], [address], 07/24/2021 03:32:39 07/23/20 21 07/24/2021 HEMOG LOBIN A1C hemoglobin A1C 5.4 %_of_ total _HGB <5.7 normal Not Available [address] [address] [place], [address], 07/24/2021 03:32:39 07/23/20 21 07/24/2021 BASIC METAB OLIC PANEL glucose 117 mg/dL 65-99 high Fasti ng refer ence inter eloy For someo ne witho ut known diabe fernandez, a gluco se value betwe en 100 and 125 mg/dL is consi stent with predi abete s and shoul d be confi rmed with a follo w-up test. Not Available [address], [address], 07/24/2021 03:32:38 07/23/20 21 07/24/2021 BASIC METAB OLIC PANEL urea nitrogen (BUN) 13 mg/dL 7-25 normal Not Available [address], [address], 07/24/2021 03:32:38 07/23/20 21 07/24/2021 BASIC METAB OLIC PANEL BUN/creatini ne ratio not applic able (calc ) 6-22 Not Available [address], [address], 07/24/2021 03:32:38 07/23/20 21 07/24/2021 BASIC METAB OLIC PANEL creatinine 0.69 mg/dL 0.60-0 .93 normal For patie nts >49 years of age, the refer ence limit for Creat inine is appro ximat reyes 13% highe r for peopl e ident ified as Afric an-Am kemal n. Not Available [address], [address], 07/24/2021 03:32:38 07/23/20 21 07/24/2021 BASIC METAB OLIC PANEL eGFR non-afr. afghan 88 mL/mi n/1.7 3m2 > or = 60 normal Not Available [address], [address], 07/24/2021 03:32:38 07/23/20 21 07/24/2021 BASIC METAB OLIC PANEL eGFR 102 mL/mi n/1.7 3m2 > or = 60 normal Not Available [address], [address], 07/24/2021 03:32:38 07/23/20 21 07/24/2021 BASIC METAB OLIC PANEL sodium 142 mmol/ L 135-14 6 normal Not Available [address], [address], 07/24/2021 03:32:38 07/23/20 21 07/24/2021 BASIC METAB OLIC PANEL potassium 4.2 mmol/ L 3.5-5. 3 normal Not Available [address], [address], 07/24/2021 03:32:38 07/23/20 21 07/24/2021 BASIC METAB OLIC PANEL chloride 105 mmol/ L 98-110 normal Not Available [address], [address], 07/24/2021 03:32:38 07/23/20 21 07/24/2021 BASIC METAB OLIC PANEL carbon dioxide 31 mmol/ L 20-32 normal Not Available [address], [address], 07/24/2021 03:32:38 07/23/20 21 07/24/2021 BASIC METAB OLIC PANEL calcium 10.0 mg/dL 8.6-10 .4 normal Not Available [address], [address], 07/24/2021 03:32:38 07/23/20 21 07/24/2021 LIPID PANEL , STAND JONNATHAN HDL cholesterol 59 mg/dL > or = 50 normal Not Available [facility] [address] [address] [place], [address], 07/24/2021 03:32:38 07/23/20 21 07/24/2021 LIPID PANEL , STAND JONNATHAN cholesterol, total 243 mg/dL <200 high Not Available [facility] [address] [place], [address], 07/24/2021 03:32:38 07/23/20 21 07/24/2021 LIPID PANEL , STAND JONNATHAN triglyceride s 101 mg/dL <150 normal Not Available [facility] [address] [address] [place], [address], 07/24/2021 03:32:38 07/23/20 21 07/24/2021 LIPID PANEL , STAND JONNATHAN LDL-choleste rol 163 mg/dL _(darrion c) high Refer ence range : <100 Marifer able range <100 mg/dL for prima ry preve ntion ; <70 mg/dL for patie nts with CHD or diabe tic patie nts with > or = 2 CHD risk facto rs. LDL-C is now calcu lated using the Blanca suarez-Hop angela leliott n, which is a valid ated novel kalyani pham accur acy than the Fried slime equat ion in the estim ation of LDL-C . Blanca suarez SS et al. PAUL. 2013; 310(1 9): 2061- 2068 (http ://ed ucati on.Everardo dacostas. com/f aq/FA Q164) Not Available [facility] [address] [address], [place], [address], 07/24/2021 03:32:38 07/23/20 21 07/24/2021 LIPID PANEL , STAND JONNATHAN chol/HDLC ratio 4.1 (calc ) <5.0 normal Not Available [facility] [address] [place], [address], 07/24/2021 03:32:38 07/23/20 21 07/24/2021 LIPID PANEL , STAND JONNATHAN non HDL cholesterol 184 mg/dL _(darrion c) <130 high For patie nts with diabe fernandez plus 1 major ASCVD risk facto r, treat ing to a non-H DL-C goal of <100 mg/dL (LDL- C of <70 mg/dL ) is heather finch optio n. Not Available [facility] [address] [address] [place], [address], 07/24/2021 03:32:38 07/23/20 21 07/24/2021 TSH+F REE T4 TSH 1.93 mIU/L 0.40-4 .50 normal Not Available [facility] [address] [address] [place], [address], 07/24/2021 03:32:37 07/23/20 21 07/24/2021 TSH+F REE T4 T4, free 1.0 NG/dL 0.8-1. 8 normal Not Available [facility] [address] [address] [place], [address], 07/24/2021 03:32:37 07/31/2007/31/2021 COLOG UARD cologuard result reportable negati ve negati ve NEGAT MANJINDER TEST RESUL T. A negat manjinder Colog uard resul t indic ates a low likel ihood that a color ectal cance r (CRC) or advan marco a adeno ma (eris omato us polyp s with more advan marco a pre-m align ant featu res) is prese nt. The chanc e that a perso n with a negat manjinder Colog uard test has a color ectal cance r is less than 1 in 1500 (nega tive predi ctive value >99.9 %) or has an advan marco a adeno ma is less than 5.3% (nega tive predi ctive value 94.7% ). These data are based on a prosp ectiv e cross -sect ional study of 10,00 0 indiv idual s at [facility] risk for color ectal cance r who were scree breezy with both Colog uard and colon oscop y. (Melvinae chilango T. et al, N Engl J Med 2014; 370(1 4):12 86-12 97) The sol l value (refe rence range ) for this assay is negat manjinder. COLOG UARD RE-SC REENI NG RECOM MENDA TION: Perio dic color ectal cance r scree rox is an impor tant part of preve ntive healt hcare for asymp tomat ic indiv idual s at [facility] risk for color ectal cance r. Follo wing a negat manjinder Colog uard resul t, the Ameri can Cance r Socie ty and U.S. Multi -Soci ety Task Force scree rox guide lines recom mend a Colog uard re-sc reeni ng inter eloy of 3 years . Refer ences : Ameri can Cance r Socie ty Guide line for Color ectal Cance r Scree rox: https ://jose j w.can cer.o rg/ca ncer/ colon -rect al-ca ncer/ detec tion- diagn osis- stagi ng/ac s-rec ommen datio ns.ht ml.; Tristan MELO, Ruma vaz CR, Jones ARDON, Color ectal Cance r Scree rox: Recom menda tions for Physi cians and Patie nts from the U.S. Multi -Soci ety Task Force on Color ectal Cance r Scree rox , Arianne hernandez y 2017; 112:1 016-1 030. TEST DESCR IPTIO N: [place] site algor ithmi c francine sis of stool DNA-b ioriki kers with hemog lobin immun oassa y. Quant itati ve value s of indiv idual bioma rkers are not repor table and are not assoc iated with indiv idual bioma rker resul t refer ence range s. Colog uard is inten ded for color ectal cance r scree rox of adult s of eithe r sex, 45 years or older , who are at [facility] for color ectal cance r (CRC) . Colog uard has been appro melissa for use by the U.S. FDA. The perfo rmanc e of Colog uard was estab lishe d in a cross secti onal study of [facility] adult s aged 50-84 . Colog uard perfo rmanc e in patie nts ages 45 to 49 years was estim ated by sub-g cherellep francine sis of near- age group s. Colon oscop ies perfo rmed for a posit manjinder resul t may find as the most clini terri signi fican t lesio n: color ectal cance r [4.0% ], advan marco a adeno ma (incl uding sessi le costa cara polyp s great er than or equal to 1cm diame ter) [20%] or non- advan marco a adeno ma [31%] ; or no color ectal neopl que [45%] . These estim ates are deriv ed from a prosp ectiv e cross -sect ional scree rox study of 0 indiv idual s at [facility] risk for color ectal cance r who were scree breezy with both Colog uard and colon oscop y. (Shar Red et al, N Engl J Med 2014; 370(1 4):12 86-12 97.) Colog uard may produ ce a false negat manjinder or false posit manjinder resul t (no color ectal cance r or preca ncero us polyp prese nt at colon oscop y follo w up). A negat manjinder Colog uard test resul t does not guara ntee the absen ce of CRC or advan marco a adeno ma (pre- cance r). The curre nt Colog uard scree rox inter eloy is every 3 years . (Amer ican Cance r Socie ty and U.S. Multi -Soci ety Task Force ). Colog uard perfo rmanc e data in a 0 patie nt pivot al study using colon oscop y as the refer ence metho d can be acces sed [facility] locat ion: www.e xactl abs.c om/re sults . Addit ional descr iptio n of the Colog uard test proce ss, warni ngs and preca ution s can be found at www.josette solares.josette om. Not Available [facility] [address], [place], [address], 08/09/2021 04:14:56 07/29/20 21 07/27/2021 MAMMO , scree rox, digit al, bilat eral No observ ation record ed. [id number] [facility] [address], [place], [address], 10/22/2022 08:26:02 09/22/19 23 09/20/2022 DEXA No observ ation record ed. [email or web address] [facility] [address], [place], [address], 08/18/2023 22:09:04 10/01/19 23 09/20/2022 MAMMO , scree rox, digit al, bilat eral No observ ation record ed. [email or web address] [facility] [address], [place], [address], 08/18/2023 22:08:51 08/03/20 23 07/31/2023 XR, hip + pelvi s, unila teral No observ ation record ed. [email or web address] [facility] [address], [place], [address], 08/10/2023 13:15:32 Result Notes None recorded. Problems Name Problem SNOMED Code Status Onset Date Resolution Date Notes Provider Name and Address Organization Details Recorded Time Benign hypertensi on 23753253 Active Not Available [facility] 3 08:22:23 Vaginal discharge symptom 221840324 Active Not Available [facility] 3 08:22:23 Urinary incontinen ce 773878369 Active Not Available [facility] 3 08:22:24 Vitamin D deficiency 40011562 Active Not Available [facility] 3 08:22:24 Tinea cruris 350512337 Active Not Available [facility] 3 08:22:24 Hyperlipid emia 20716239 Active Not Available [facility] 3 08:22:24 Vulvitis 61272060 Active Not Available [facility] 3 08:22:24 Changing shape of pigmented skin lesion 053746942 Active 2021 Not Available [facility] 3 08:22:24 Benign essential hypertensi on 4512050 Active 2021 Not Available [facility] 3 08:22:23 Blood glucose outside reference range 320128774 Active 2021 Not Available [facility] 3 08:22:24 Pain of hip region 61884336 Active 2022 KESHIA Felix [address], [address], [place], [address] , [employer] 3 15:32:36 Pain of right hip joint 7847314390593 02 Active 2022 KESHIA Felix [address], [address], [place], [address] , [employer] 3 15:32:40 Problem Notes None recorded. Procedures Surgical History Date Name Laterality Status Provider Name and Address Organization Details Recorded Time 023 Appendectomy completed CORINA Daley [employer] 07/24/2023 15:07:20 022 Bladder completed Not Available [facility] 10/22/2022 08:19:29 021 Date of Last Colonoscopy completed Not Available [facility] 10/22/2022 08:19:27 020 Most Recent Mammogram completed Not Available [facility] 10/22/2022 08:19:27 020 Most Recent Bone Density completed Not Available [facility] 10/22/2022 08:19:27 012 Gastrointestinal Surgery completed Not Available [facility] 10/22/2022 08:19:29 010 Date of Last Pap Smear completed Not Available [facility] 10/22/2022 08:19:27 06/23/2 009 Breast Biopsy completed Not Available [facility] 10/22/2022 08:19:29 008 Breast Surgery completed Not Available [facility] 10/22/2022 08:19:29 003 Eye Surgery completed Not Available [facility] 10/22/2022 08:19:29 983 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 Procedure Notes None recorded. Medical Equipment None Reported. Allergies Allergen ID Allergen Name Allergen Category Reaction Reaction Severity Criticality Documentation Date Start Date Code Code System Note Provider Name and Address Organization Details Recorded Time codeine medicatio n vomiting severe Not available 10/22/2022 2670 RxNorm Not Available [facility] 08:25:53 Product containin g phenothia zine and/or phenothia zine derivativ e (product) medicatio n Not available Not available Not available 10/22/2022 09570 4002 SNOMED Not Available [facility] 08:25:53 Medications Name Sig Start Date Stop Date Status Note LastModified by Organization Details LastModified Time magnesium 500 mg tablet Take 1 tablet every day by oral route. 03/01 completed w/ B6 Not Available Not Available Not Available fluconazole 150 mg tablet Take 1 tablet by oral route for 1 day. active Not Available Not Available No t Available hydrocodone 5 mg-acetamin ophen 325 mg tablet TAKE ONE TABLET BY MOUTH EVERY 6 HOURS NEEDED FOR PAIN 07/22 completed Not Available Not Available Not Available lisinopril 20 mg tablet active Not Available Not Available Not Available prednisone 20 mg tablet active Not Available Not Available Not Available amlodipine 5 mg tablet TAKE 2 TABLET(S) EVERY DAY BY ORAL ROUTE 03/05 completed Not Available Not Available Not Available doxepin 10 mg capsule active Not Available Not Available N ot Available sulfamethox azole 800 mg-trimetho prim 160 mg tablet Take 1 tablet every 12 hours by oral route. 11/23 completed Not Available Not Available Not Available triamcinolo ne acetonide 0.1 % topical cream active Not Available Not Available Not Available oxycodone-a cetaminophe n 5 mg-325 mg tablet 07/24 completed Not Available Not Available Not Available amoxicillin 875 mg tablet 07/23 completed Not Available Not Available Not Available triamcinolo ne acetonide 0.1 % dental paste 05/21 completed Not Available Not Available Not Available amlodipine 10 mg tablet TAKE ONE TABLET BY MOUTH ONE TIME DAILY 2023 active Not Available Not Available Not Avai lable nystatin 100,000 unit/gram topical cream 03/05 completed Not Available Not Available Not Available clotrimazol e-betametha sone 1 %-0.05 % topical cream APPLY TO THE AFFECTED AND SURROUNDI NG AREAS OF SKIN BY TOPICAL ROUTE 2 TIMES PER DAY IN THE MORNING AND EVENING FOR 4 WEEKS active Not Available Not Available No t Available lisinopril 10 mg tablet active Not Available Not Available Not Available nystatin-tr iamcinolone 100,000 unit/g-0.1 % topical cream APPLY TO THE AFFECTED AREA S BY TOPICAL ROUTE 2 TIMES PER DAY IN THE MORNING AND EVENING NEEDED 07/17 completed Not Available Not Available Not Available diclofenac sodium 75 mg tablet,cedric yed release active Not Available Not Available Not Available desonide 0.05 % lotion PRN active Not Available Not Available Not Available zolpidem 5 mg tablet active Not Available Not Available No t Available clobetasol 0.05 % topical ointment APPLY TO RASH 2 TIMES DAILY NEEDED 07/23 completed Not Available Not Available Not Available zolpidem 10 mg tablet active Not Available Not Available No t Available methylpredn isolone 4 mg tablets in a dose pack 05/21 completed Not Available Not Available Not Available nitrofurant oin monohydrate /macrocryst als 100 mg capsule 07/23 completed Not Available Not Available Not Available Nyamyc 100,000 unit/gram topical powder active Not Available Not Available Not Available fenofibrate 160 mg tablet active Not Available Not Available Not Available Glucosamine daily 2017 active Not Available Not Available Not Avai lable multivitami n daily 2016 active Not Available Not Available Not Avai lable vit B complex 100 no.2-herbs daily 2017 active Not Available Not Available Not Avai lable Vitamin D3 125 mcg (5,000 unit) tablet Take 1 tablet every day by oral route. 2016 active Not Available Not Available Not Avai lable Probiotic 50 billion daily 2017 active Not Available Not Available Not Avai lable melatonin 10 mg capsule Take 1 capsule every day by oral route. 03/01 completed Not Available Not Available Not Available Vitamin B12 takes 5000mcg daily 03/01 completed Not Available Not Available Not Available Vitals Date Recorded Body mass index (BMI) Body height Body temperature Body weight Systolic And Diastolic Provider Name and Address Organization Details Last Updated DateTime 03/05/2021 26.6 kg/m2 165.1 cm 98.4 [degF] 19965.7 8 g 128/72 mm[Hg] Not Available [facility] 3 08:19:49 Date Recorded Body height Oxygen saturation Heart rate Respiratory rate Body temperature Systolic And Diastolic Provider Name and Address Organization Details Last Updated DateTime 2 165.1 cm 96 % 83 /min 16 /min 97.2 [degF] 122/80 mm[Hg] Not Available [facility] 3 08:19:49 Date Recorded Body mass index (BMI) Body height Oxygen saturation Heart rate Body temperature Body weight Systolic And Diastolic Provider Name and Address Organization Details Last Updated DateTime 1 26.4 kg/m2 165.1 cm 96 % 80 /min 96.4 [degF] 72661.7 5 g 120/80 mm[Hg] Not Available [facility] 3 08:19:49 Date Recorded Body mass index (BMI) Body height Oxygen saturation Heart rate Body temperature Body weight Systolic And Diastolic Provider Name and Address Organization Details Last Updated DateTime 2 25 kg/m2 165.1 cm 96 % 91 /min 97.2 [degF] 76750.8 6 g 122/84 mm[Hg] Not Available [facility] 3 08:19:49 Date Recorded Body height Body temperature Body mass index (BMI) Body weight Respiratory rate Oxygen saturation Heart rate Systolic And Diastolic Provider Name and Address Organization Details Last Updated DateTime 3 165.1 cm 97.6 [degF] 23 kg/m2 51248.7 5 g 16 /min 97 % 89 /min 120/80 mm[Hg] CORINA Daley [place] - [facility] [place] [employer] [facility] 15:07:06 Social History Question Answer Notes LastModified by Organizat ion Details LastModified Time Tobacco Smoking Status Current Every Day Smoker Not Available [facility] 10/22/2022 08:19:04 Do You Have An Advance Directive? Yes MIGRATION.[id number] 4806 Information not available 10/22/2022 Do You Wear A Helmet When Biking? No MIGRATION.095163 3167 Information not available 10/22/2022 What Is Your Level Of Caffeine Consumption? Moderate MIGRATION.967453 3941 Information not available 10/22/2022 In The 14 Days Before Symptom Onset, Have You Had Close Contact With A Laboratory-confirm ed COVID-19 While That Case Was Ill? No MIGRATION.396049 4145 Information not available 10/22/2022 In The 14 Days Before Symptom Onset, Have You Had Close Contact With A Person Who Is Under Investigation For COVID-19 While That Person Was Ill? No MIGRATION.825018 6494 Information not available 10/22/2022 What Type Of Diet Are You Following? REGULAR MIGRATION.586292 8734 Information not available 10/22/2022 Which Illicit Or Recreational Drugs Have You Used? None MIGRATION.452010 3227 Information not available 10/22/2022 What Is The Highest Grade Or Level Of School You Have Completed Or The Highest Degree You Have Received? [id number] MIGRATION.138496 6842 Information not available 10/22/2022 Have There Been Any Changes To Your Family Or Social Situation? No MIGRATION.927398 7660 Information not available 10/22/2022 Are There Any Guns Present In Your Home? Yes MIGRATION.319400 7451 Information not available 10/22/2022 Do You Use Insect Repellent Routinely? No MIGRATION.197655 2056 Information not available 10/22/2022 What Is Your Current Pack Years? 30ormorepacky ears MIGRATION.983002 0810 Information not available 10/22/2022 What Is Your Relationship Status? MIGRATION.049724 7856 Information not available 10/22/2022 Do You Use Your Seat Belt Or Car Seat Routinely? Yes MIGRATION.891530 6994 Information not available 10/22/2022 Do You Have Smoke And Carbon Monoxide Detectors In Your Home? Yes MIGRATION.423004 9399 Information not available 10/22/2022 At What Age Did You Start Smoking Tobacco? 25 MIGRATION.322721 0799 Information not available 10/22/2022 Are You Passively Exposed To Smoke? No MIGRATION.211072 0325 Information not available 10/22/2022 Are There Any Smokers In Your House? Yes MIGRATION.487482 1085 Information not available 10/22/2022 How Much Tobacco Do You Smoke? 0.5 PPD MIGRATION.717703 9310 Information not available 10/22/2022 Do You Use Sunscreen Routinely? No MIGRATION.227792 8070 Information not available 10/22/2022 Has Tobacco Cessation Counseling Been Provided? No MIGRATION.931172 2858 Information not available 10/22/2022 Have You Recently Traveled Abroad? No MIGRATION.223580 3399 Information not available 10/22/2022 Do You Have Any Dietary Restrictions? No MIGRATION.551452 0003 Information not available 10/22/2022 Sex: Unknown Functional Status Question Answer Note LastModified by Organizat ion Details LastModified Time Do you use any illicit or recreational drugs? No MIGRATION.576390 6235 Information not available 10/22/2022 What is your level of alcohol consumption? None MIGRATION.388304 6817 Information not available 10/22/2022 Are you currently employed? Yes [email or web address] Information not available 07/23/2023 Do you have transportation difficulties? No [id number] Information not available 07/23/2023 Do you have difficulty doing errands alone? No MIGRATION.301564 3555 Information not available 10/22/2022 Are you able to care for yourself independently? 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 No MIGRATION.143959 5236 Information not available 10/22/2022 Do you or have you ever used e-cigarettes or vape? Never used electronic cigarettes MIGRATION.631640 1161 Information not available 10/22/2022 What is your exercise level? Moderate MIGRATION.000749 7753 Information not available 10/22/2022 Mental Status Question Answer Note LastModified by Organizat ion Details LastModified Time Do you feel stressed (tense, restless, nervous, or anxious, or unable to sleep at night)? [id number] MIGRATION.[id number] 6 Information not available 10/22/2022 Family History Relationship Description Onset Age of this Age Resolved Age Notes LastModified by Organization Details LastModified Time Father Hypertensive disorder MIGRATION.[id number] Not available 10/22/2022 08:19:30 Father Atherosclero sis 70 MIGRATION.842 [id number] Not available 10/22/2022 08:19:30 Brother Diabetes mellitus MIGRATION.636 [id number] Not available 10/22/2022 08:19:30 Sister Malignant neoplasm of breast MIGRATION.320 [id number] Not available 10/22/2022 08:19:30 Mother Dementia MIGRATION.739 [id number] Not available 10/22/2022 08:19:30 Paternal Grandfather Diabetes mellitus MIGRATION.977 [id number] Not available 10/22/2022 08:19:30 Medical History Condition Response SKIN PROBLEMS Y BACK / NECK PROBLEMS Y SLEEP DISORDER Y HYPERTENSION Y HIGH CHOLESTEROL / HYPERLIPIDEMIA Y Gynecological History Statement/Question Response Abnormal Pap N Date of Last Mammogram 07/27/2021 Date of Last Colonoscopy 08/09/2021 Most Recent Bone Density 06/11/2020 Date of Last Pap Smear 10/03/2009 Current Control Method Hysterectom y Age at Menarche 16 Most Recent Mammogram 06/30/2020 Obstetrics History GPAL:G 2 P 2 0 0 2 Type Value Full Term 2 Living 2 Total 2 Past Encounters Encounter ID Performer Location Encounter Start Date Encounter Closed Date Diagnosis/Indication Diagnosis SNOMED-CT Code Diagnosis ICD10 Code Diagnosis IMO Codes Diagnosis Note [id number] [facility] _[place]HENA_M IGRATION_ DEFAULT_1 _1 , 03/05/2021 00:00:00 03/05/2021 16:13:07 [id number] KESHIA Felix [facility] Internal [place] [address] [place] [address] 07/17/2021 00:00:00 07/19/2021 17:14:11 [id number] KESHIA Felix [facility] [address] [place] [address] 05/21/2022 00:00:00 05/21/2022 14:46:45 [id number] KESHIA Felix [facility] Internal [place] [address] [place] [address] 07/22/2022 00:00:00 07/22/2022 18:43:14 [id number] KESHIA Felix [facility] Internal Med [place] [address] [place] [address] 07/24/2023 14:53:25 07/24/2023 15:36:54 Adult health examination 670097357 Z00.01 [place] [facility] [place] . labs ordered Benign ess ential hypertension [id number] I10 stable on amlodipine 10mg daily Hyperlipidemia 95676814 E78.5 pt elects to only try and manage lipids with diet and exercise. she does not want medication therapy. fasting lipids are due Blood gluc ose outside reference range 354342607 R73.09 a1c screening is due with hx of elevated glucose fasting. Long-term drug therapy [id number] Z79.899 all routine LFT, bmp, cbc and TFTs due Pain of ri ght hip joint [id number] 19007 M25.551 check baseline xray of right hip and pelvis. Health Concerns Section Related Observation LastModified by Organization Detai ls LastModified Time None Recorded Concern Status LastModified by Organization Details LastModified Time None Recorded Advance Directives Directive Y: Payers Insurance Date Sequence Insurance Name Policy Number Policy Ny Covered Member ID Ny Member ID Guarantor Name 08/19/2023 1 [facility] (MEDICARE REPLACEMENT/A DVANTAGE - HMO) [id number] Elzbieta Galan [id number] Elzbieta Galan Notes Date Note Type Note Provider Name and Address Organization Details Recorded Time 3 text/html HyperlipidemiaReported by PatientHPIFor duration, patient reportschronic. For risk factors, patient reportshypertension. For control, patient reportsusually well controlled,improving, andat goal. For compliance, patient reportscompliant,compliant with diet, andexercises. For complications, patient reportsno coronary artery disease,no peripheral artery disease, andno cardiovascular disease. HypertensionReported by PatientHPIFor duration, patient reportshas noted for years. For onset/timing, patient reportsbetter. For alleviating factors, patient reportsmedication. For associated symptoms, patient reportsno shortness of breath,no fatigue,no palpitations,no decline in exercise capacity, andno snoring. Wellness KESHIA Felix [address] [facility], [facility] [address], [place], [address], [facility] [employer] [facility] 08/18/2023 22:12:46 OBGyn Episode No OBEpisode recorded.
--- OUTSIDE RECORDS SUMMARY | 2025-07-14 03:19 | XMS_ITS | Continuity of Care Document ---
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 Name Role Phone NICK RUBI Primary Care Provider Unavailab le Assessment Encounter Date Assessment Date Assessment LastModified by Organization Details LastModified Time 04/19/2025 04/19/2025 Cologuard negative May 12, 2024 Not available 04/19/2025 14:34:38 Plan of Treatment Reminders Order Date Submit Date Provider Last Modified By Organization Details Last Modified Time Details Appointments ANY 15 2025 01:00P M KESHIA Felix Not available Not available Not available Lab celiac disease comprehen sive panel, serum 2024 025 [employer] [facility], [address], [place], [address], 04/25/2025 14:49:02 O&P (ova & parasites ), stool 2024 025 [employer] [facility], [address], [place], [address], 05/01/2025 09:48:52 C diff toxin A+B, qualitati ve, stool 2024 025 [employer] [facility], [address], [place], [address], 04/26/2025 11:29:52 wbc, stool 2024 025 [facility], [address], [place], [address], 05/01/2025 09:48:51 salmonell a sp + shigella sp, culture, stool 2024 025 [facility], [address], [place], [address], 05/01/2025 09:48:51 cryptospo ridium Ag, stool 2024 025 [facility], [address], [place], [address], 05/01/2025 09:48:50 campyloba cter sp, culture, unspecifi ed specimen 2024 025 [facility], [address], [place], [address], 05/01/2025 09:48:50 TSH, serum or plasma 2024 025 [facility], [address], [place], [address], 04/25/2025 14:49:09 CBC w/ auto diff 2024 025 [facility], [address], [place], [address], 04/25/2025 14:49:07 lipase, serum or plasma 2024 025 [facility], [address], [place], [address], 04/25/2025 14:49:11 BMP, serum or plasma 2024 025 [facility], [address], [place], [address], 04/25/2025 14:49:04 hepatic function panel, serum 2024 025 [employer] [facility], [address], [place], [address], 04/25/2025 14:49:06 amylase, serum or plasma 2024 025 [employer] [facility], [address], [place], [address], 04/25/2025 14:49:10 Referral None recorded. Procedures diagnosti c colonosco py (PROC) - diarrhea 6 months, no blood or melena, weight loss. 2024 025 [facility], [address], [address], [place], [address], 07/13/2025 04:24:29 Surgeries None recorded. Imaging CT, abdomen + pelvis, w/ contrast 2024 025 [facility] (Imaging), [address], [place], [address], 05/11/2025 13:00:25 Medication Orders None recorded. Patient TargetsNo targets recorded. Patient InstructionsNo instructions recorded. Reason for Referral None Reported. Results Created Date Observation Date Name Description Value Unit Range Abnormal Flag Note LastModifiedBy Organization Detail LastModifiedTime 04/20/2004/25/2025 NINA C DISEA SE COMPR EHENS MANJINDER PANEL interpretati on No serol ogica l evide nce of nina c disea se. tTG IgA may sol lize in indiv idual s with nina c disea se who maint ain a glute n-hetal e diet. Consi kacey HLA DQ2 and DQ8 testi ng to rule out nina c disea se. Nina c disea se is extre huber rare in the absen ce of DQ2 or DQ8. Not Available [employer] [facility] [address] [place], [address], 04/25/2025 14:49:02 04/20/2004/25/2025 NINA C DISEA SE COMPR EHENS MANJINDER PANEL tissue transglutami nase Ab, IgA <1.0 U/mL Value Inter preta tion ----- ----- ----- ---- <15.0 Antib kateryna not detec sarahi > or = 15.0 Antib kateryna detec sarahi Not Available [address], [address], 04/25/2025 14:49:02 04/20/2004/25/2025 NINA C DISEA SE COMPR EHENS MANJINDER PANEL immunoglobul in A 239 mg/dL 70-320 Not Available [address], [address], 04/25/2025 14:49:02 04/20/2004/25/2025 BASIC METAB OLIC PANEL glucose 151 mg/dL 65-139 high Non-f astin g refer ence inter eloy Not Available [address], [address], 04/25/2025 14:49:04 04/20/2004/25/2025 BASIC METAB OLIC PANEL urea nitrogen (BUN) 15 mg/dL 7-25 normal Not Available [address], [address], 04/25/2025 14:49:04 04/20/2004/25/2025 BASIC METAB OLIC PANEL creatinine 0.75 mg/dL 0.60-1 .00 normal Not Available [address], [address], 04/25/2025 14:49:04 04/20/2004/25/2025 BASIC METAB OLIC PANEL eGFR 83 mL/mi n/1.7 3m2 > or = 60 normal Not Available [address], [address], 04/25/2025 14:49:04 04/20/2004/25/2025 BASIC METAB OLIC PANEL BUN/creatini ne ratio SEE NOTE: (calc ) 6-22 Not Repor sarahi: BUN and Creat inine are withi n refer ence range . Not Available [address], [address], 04/25/2025 14:49:04 04/20/2004/25/2025 BASIC METAB OLIC PANEL sodium 136 mmol/ L 135-14 6 normal Not Available [address], [address], 04/25/2025 14:49:04 04/20/2004/25/2025 BASIC METAB OLIC PANEL potassium 3.9 mmol/ L 3.5-5. 3 normal Not Available [address], [address], 04/25/2025 14:49:04 04/20/2004/25/2025 BASIC METAB OLIC PANEL chloride 101 mmol/ L 98-110 normal Not Available [address], [place], [address], 04/25/2025 14:49:04 04/20/2004/25/2025 BASIC METAB OLIC PANEL carbon dioxide 28 mmol/ L 20-32 normal Not Available [address], [address], 04/25/2025 14:49:04 04/20/2004/25/2025 BASIC METAB OLIC PANEL calcium 9.8 mg/dL 8.6-10 .4 normal Not Available [address], [address], 04/25/2025 14:49:04 04/20/2004/25/2025 HEPAT IC FUNCT ION PANEL protein, total 6.6 g/dL 6.1-8. 1 normal Not Available [address], [address], 04/25/2025 14:49:06 04/20/2004/25/2025 HEPAT IC FUNCT ION PANEL albumin 4.0 g/dL 3.6-5. 1 normal Not Available [address], [address], 04/25/2025 14:49:06 04/20/2004/25/2025 HEPAT IC FUNCT ION PANEL globulin 2.6 g/dL_ (calc ) 1.9-3. 7 normal Not Available [address], [address], 04/25/2025 14:49:06 04/20/2004/25/2025 HEPAT IC FUNCT ION PANEL albumin/glob ulin ratio 1.5 (calc ) 1.0-2. 5 normal Not Available [address], [address], 04/25/2025 14:49:06 04/20/2004/25/2025 HEPAT IC FUNCT ION PANEL bilirubin, total 0.4 mg/dL 0.2-1. 2 normal Not Available [address], [address], 04/25/2025 14:49:06 04/20/2004/25/2025 HEPAT IC FUNCT ION PANEL bilirubin, direct 0.1 mg/dL < or = 0.2 normal Not Available [address], [address], 04/25/2025 14:49:06 04/20/2004/25/2025 HEPAT IC FUNCT ION PANEL bilirubin, indirect 0.3 mg/dL _(darrion c) 0.2-1. 2 normal Not Available [address], [address], 04/25/2025 14:49:06 04/20/2004/25/2025 HEPAT IC FUNCT ION PANEL alkaline phosphatase 69 U/L 37-153 normal Not Available [facility] [employer] [address], [address], 04/25/2025 14:49:06 04/20/2004/25/2025 HEPAT IC FUNCT ION PANEL AST 18 U/L 10-35 normal Not Available [address], [address], 04/25/2025 14:49:06 04/20/2004/25/2025 HEPAT IC FUNCT ION PANEL ALT 11 U/L 6-29 normal Not Available [address], [address], 04/25/2025 14:49:06 04/20/2004/25/2025 CBC (INCL UDES DIFF/ PLT) white blood cell count 6.6 thous and/u L 3.8-10 .8 normal Not Available [address], [address], 04/25/2025 14:49:07 04/20/2004/25/2025 CBC (INCL UDES DIFF/ PLT) red blood cell count 4.35 fannie on/uL 3.80-5 .10 normal Not Available [address], [address], 04/25/2025 14:49:07 04/20/2004/25/2025 CBC (INCL UDES DIFF/ PLT) hemoglobin 13.6 g/dL 11.7-1 5.5 normal Not Available [address], [address], 04/25/2025 14:49:07 04/20/2004/25/2025 CBC (INCL UDES DIFF/ PLT) hematocrit 41.1 % 35.0-4 5.0 normal Not Available [address], [address], 04/25/2025 14:49:07 04/20/2004/25/2025 CBC (INCL UDES DIFF/ PLT) MCV 94.5 fL 80.0-1 00.0 normal Not Available [address], [address], 04/25/2025 14:49:07 04/20/2004/25/2025 CBC (INCL UDES DIFF/ PLT) MCH 31.3 pg 27.0-3 3.0 normal Not Available [address], [address], 04/25/2025 14:49:07 04/20/2004/25/2025 CBC (INCL UDES DIFF/ PLT) MCHC 33.1 g/dL 32.0-3 6.0 normal For adult s, a sligh t decre ase in the calcu lated MCHC value (in the range of 30 to 32 g/dL) is most likel y not clini terri signi patience t; doron er, it shoul d be inter prete d with cauti on in [facility] n with other red cell bhavani eters and the patie nt's clini darrion condi tion. Not Available [address], [address], 04/25/2025 14:49:07 04/20/2004/25/2025 CBC (INCL UDES DIFF/ PLT) RDW 11.8 % 11.0-1 5.0 normal Not Available [employer] [address], [address], 04/25/2025 14:49:07 04/20/2004/25/2025 CBC (INCL UDES DIFF/ PLT) platelet count 234 thous and/u L 140-40 0 normal Not Available [employer] [address], [address], 04/25/2025 14:49:07 04/20/20 25 04/25/2025 CBC (INCL UDES DIFF/ PLT) MPV 9.1 fL 7.5-12 .5 normal Not Available [address], [address], 04/25/2025 14:49:07 04/20/20 25 04/25/2025 CBC (INCL UDES DIFF/ PLT) absolute neutrophils 4778 cells /uL 1500-7 800 normal Not Available [address], [address], 04/25/2025 14:49:07 04/20/20 25 04/25/2025 CBC (INCL UDES DIFF/ PLT) absolute lymphocytes 1419 cells /uL 850-39 00 normal Not Available [address], [address], 04/25/2025 14:49:07 04/20/20 25 04/25/2025 CBC (INCL UDES DIFF/ PLT) absolute monocytes 343 cells /uL 200-95 0 normal Not Available [address], [address], 04/25/2025 14:49:07 04/20/20 25 04/25/2025 CBC (INCL UDES DIFF/ PLT) absolute eosinophils 20 cells /uL 15-500 normal Not Available [address], [address], 04/25/2025 14:49:07 04/20/20 25 04/25/2025 CBC (INCL UDES DIFF/ PLT) absolute basophils 40 cells /uL 0-200 normal Not Available [address], [address], 04/25/2025 14:49:07 04/20/20 25 04/25/2025 CBC (INCL UDES DIFF/ PLT) neutrophils 72.4 % normal Not Available [facility] [address], [place], [address], 04/25/2025 14:49:07 04/20/2004/25/2025 CBC (INCL UDES DIFF/ PLT) lymphocytes 21.5 % normal Not Available [address], [address], 04/25/2025 14:49:07 04/20/2004/25/2025 CBC (INCL UDES DIFF/ PLT) monocytes 5.2 % normal Not Available [facility] [address], [address], 04/25/2025 14:49:07 04/20/2004/25/2025 CBC (INCL UDES DIFF/ PLT) eosinophils 0.3 % normal Not Available [address], [address], 04/25/2025 14:49:07 04/20/2004/25/2025 CBC (INCL UDES DIFF/ PLT) basophils 0.6 % normal Not Available [address], [address], 04/25/2025 14:49:07 04/20/2004/25/2025 TSH W/REF ANTONIO TO FT4 TSH w/reflex to FT4 1.69 mIU/L 0.40-4 .50 normal Not Available [address], [address], 04/25/2025 14:49:09 04/20/2004/25/2025 AMYLA SE amylase 29 U/L 21-101 normal Not Available [address], [address], 04/25/2025 14:49:10 04/20/2004/25/2025 LIPAS E lipase 17 U/L 7-60 normal Not Available [address], [place], [address], 04/25/2025 14:49:11 04/25/20 25 04/26/2025 CLOST RIDIU M DIFFI CILE TOXIN /GDH W/REF L TO PCR clostridium difficile toxin/gdh w/refl to PCR SEE NOTE CLOST RIDIU M DIFFI CILE TOXIN /GDH W/REF L TO PCR Micro Numbe r: [id number] Test Statu s: Final Speci men Sourc e: Stool Speci men Quali ty: Adequ ate GDH Antig en: Not Detec sarahi Toxin A and B: Not Detec sarahi COMME NT: No toxig enic C. diffi cile detec sarahi For addit ional infor calista conte refer to http: //[facility].Que stDia gnost ics.c om/fa q/FAQ 136 (This link is being provi ded for infor rosendo nal/e ducat ional purpo ses only. ) Not Available [place] [address] [place], [address], 04/26/2025 11:29:52 04/25/2005/01/[address], CULTU RE campylobacte r culture NOT ISOLAT ED normal REFER ENCE RANGE : NOT ISOLA SARAHI Not Available [address] [address] [place], [address], 05/01/2025 09:48:50 04/25/2005/01/2025 CRYPT OSPOR IDIUM ANTIG EN, EIA cryptosporid ium antigen, EIA SEE NOTE CRYPT OSPOR IDIUM ANTIG EN, EIA Micro Numbe r: [id number] Test Statu s: Final Speci men Sourc e: Stool Speci men Quali ty: Adequ ate Crypt ospor idium : Not Detec sarahi Refer ence Range : Not Detec sarahi NOTE: Due to inter mitte nt sterling ing, one negat manjinder sampl e does not neces saril y rule out the prese nce of a srikanth itic infec tion. Not Available [address], [address], 05/01/2025 09:48:50 04/25/2005/01/2025 FECAL LEUKO CYTE STAIN fecal leukocyte stain SEE NOTE FECAL LEUKO CYTE STAIN Micro Numbe r: [id number] Test Statu s: Final Speci men Sourc e: Stool Speci men Quali ty: Adequ ate Fecal Leuko cyte: Not Detec sarahi Refer ence Range : Not Detec sarahi Not Available [address] [address] [place], [address], 05/01/2025 09:48:51 04/25/2005/01/2025 SALMO KIRTI AND SHIGE LLA, CULTU RE salmonella and shigella, culture SEE NOTE SALMO KIRTI AND SHIGE LLA, CULTU RE Micro Numbe r: [id number] Test Statu s: Final Speci men Sourc e: Stool Speci men Quali ty: Adequ ate Resul t: No Salmo kirti or Shige lla isola sarahi Not Available [address], [address], 05/01/2025 09:48:51 04/25/2005/01/2025 OVA AND SRIKANTH ITES WITH GIARD IA ANTIG EN giardia Ag, EIA, stool SEE NOTE GIARD IA AG, EIA, STOOL Micro Numbe r: [id number] Test Statu s: Final Speci men Sourc e: Stool Speci men Quali ty: Adequ ate Giard ia Resul t 1: Not Detec sarahi Refer ence Range : Not Detec sarahi NOTE: Due to inter mitte nt sterling ing, one negat manjinder sampl e does not neces saril y rule out the prese nce of a srikanth itic infec tion. Not Available [facility] [address], [address], 05/01/2025 09:48:52 04/25/2005/01/2025 OVA AND SRIKANTH ITES WITH GIARD IA ANTIG EN ova and parasites, conc and perm smear SEE NOTE OVA AND SRIKANTH ITES, CONC AND PERM SMEAR Micro Numbe r: [id number] Test Statu s: Final Speci men Sourc e: Stool Speci men Quali ty: Adequ ate JAIDEN NTRAT ION 1: No ova or srikanth ites seen TRICH NARCISA 1: No ova or srikanth ites seen Routi ne Ova and Srikanth ite exam may not detec t some srikanth ites that occas ional ly cause diarr heal illne ss. Crypt ospor idium Antig en and/o r Cyclo spora and Isosp ora Exam may be order ed to detec t these srikanth ites. One negat manjinder sampl e does not neces saril y rule out the prese nce of a srikanth itic infec tion. For addit ional infor calista conte refer to https ://ed ati on.qu [employer]/f aq/FA Q203 (This link is being provi ded for infor rosendo ricardo/ educmaisha jimenez l purpo ses only. ) Not Available [employer] [facility] [address] [place], [address], 05/01/2025 09:48:52 05/11/20 25 05/11/2025 CT, abdom en + pelvi s, w/ contr ast No observ ation record ed. [facility] [address] [facility] [address], [place], [address], 05/12/2025 16:43:49 Result Notes None recorded. Problems Name Problem SNOMED Code Status Onset Date Resolution Date Notes Provider Name and Address Organization Details Recorded Time Body mass index 20-24 - normal 122162114 Active 2023 Cris Graff MA null, [place] - [facility] 4 15:18:47 Osteopenia 213954710 Active 2023 KESHIA Felix Attn: David ty,[address] [place], [address], [place] [facility] 5 14:08:14 Long-term drug therapy Active 2023 KESHIA Felix Attn: David ty,[address] [facility], [place], [address], [place] - [facility] 4 23:49:34 Blood glucose outside reference range 424971244 Active 2023 KESHIA Felix Attn: David g,[address] [facility], [place], [address], [place] [facility] 4 23:49:56 Hyperlipidemia 81608108 Active 2023 KESHIA Felix Attn: David ty,[address] [facility], [place], [address], [place] [facility] 5 14:08:10 Benign essential hypertension 5242905 Active 2023 KESHIA Felix Attn: David ty,[address] [facility], [place], [address], [place] [facility] 14:08:09 Body mass index less than 20 845339397 Active 2024 KESHIA Felix Attn: David ty,[address] [facility], [place], [address], [place] [facility] 14:27:37 Anxiety 44469793 Active 2024 KESHIA Felix Attn: David ty,[address] [facility], [place], [address], [place] [facility] 5 07:27:35 Cholelithiasis without obstruction 97433516 Active 2024 KESHIA Felix Attn: David g,[address] [facility], [place], [address], [place] [facility] 5 14:03:34 Long-term current use of drug therapy 112754661 Active 2024 KESHIA Felix Attn: David g,[address] [facility], [place], [address], [place] [facility] 5 14:19:52 Problem Notes None recorded. Procedures Surgical History Date Name Laterality Status Provider Name and Address Organization Details Recorded Time Appendectomy completed Thienhollybailey HERON Graff [place] - [facility] 04/28/2024 15:12:11 hysterectomy completed Cris Graff [place] [facility] 04/28/2024 15:15:32 Tonsillectomy completed Cris Graff [place] [facility] 04/28/2024 15:15:39 Breast reduction completed Cris Graff [place] - [facility] 04/28/2024 15:15:44 Eye Surgery completed Thiengerardo Graff MA [place] - [facility] 04/28/2024 15:15:58 Imaging Results None recorded. Procedure Notes None recorded. Medical Equipment None Reported. Allergies Allergen ID Allergen Name Allergen Category Reaction Reaction Severity Criticality Documentation Date Start Date Code Code System Note Provider Name and Address Organization Details Recorded Time 461109 codeine medicatio n vomiting severe high 03/09/2024 2670 RxNorm Elisa Hoover LPN [place], [place] [facility] 17:34:55 509780 latex environme nt,medica tion rash moderate high 03/09/2024 65459 91 RxNorm Elisa Hoover [employer] [place], [place] [facility] 17:35:53 450800 cephalexi n medicatio n Not available Not available high 04/19/2025 2231 RxNorm React ion: Menta l Statu s Ritesh es, faint ing, unrec ogniz ed react ion (text : Synco pe, code: 72215 [id number]) ([facility] unrec ogniz ed react ion (text : Menta l statu s ritesh es, code: 02532 4004) ([facility]) HERON Muñoz, [place] - [facility] 5 14:05:03 706769 ezetimibe medicatio n Not available Not available Not available 04/19/2025 06399 8 RxNorm unrec ogniz ed react ion (text : Unkno wn, code: 97533 5006) ([facility]) HERON Muñoz, [place] - [facility] 5 14:05:05 19780924 fenofibra te medicatio n Not available Not available Not available 06/06/2025 8703 RxNorm unrec zev marie react ion (text : Unkno wn, code: 16531 5006) (from [facility]) HERON Muñoz, [facility] 13:54:56 Medications Name Sig Start Date Stop [...] Available Not Available Vitals Date Recorded Body height Body mass index (BMI) Body weight Respiratory rate Oxygen saturation Heart rate Systolic And Diastolic Provider Name and Address Organization Details Last Updated DateTime 5 165.1 cm 19 kg/m2 94168.5 3 g 18 /min 100 % 99 /min 126/82 mm[Hg] Cris Graff MA [facility] 5 14:09:01 Social History Question Answer Notes LastModified by Organizat ion Details LastModified Time Tobacco Smoking Status Current Every Day Smoker HERON Muñoz, [facility] 04/28/2024 15:13:27 Do [...] N High Blood Pressure Y Cancer N GI Problems N Depression N COPD N Blood Clots N Skin Problems Y High Cholesterol Y Gynecological History Statement/Question Response Menses Monthly N Current Control Method Hysterectom y Obstetrics History GPAL:G 1 P 0 0 0 0 Immunizations Vaccine Type Date Status Note Provider Nam e and Address Organization Details Recorded Time influenza, split (incl. purified surface antigen) 11/21/2013 completed Not Available [facility] 13:49:07 Past Encounters Encounter ID Performer Location Encounter Start Date Encounter Closed Date Diagnosis/Indication Diagnosis SNOMED-CT Code Diagnosis ICD10 Code Diagnosis IMO Codes Diagnosis Note [id number] Ge Wynn MD [facility] [address] [place] [address] 04/19/2025 13:56:18 04/19/2025 14:38:29 Body mass index less than 20 546868573 Z68.4 0965165563 BMI has decreased to 19 Chronic diarrhea 4746809 09 K52.9 66274 Send for full stool culture panel as well as celiac comprehens manjinder panel and refer for diagnostic colonoscop y as soon as possible. Follow up after testing Unintentio nal weight loss 111337565 R63.4 196952 Screening thyroid labs as well as amylase lipase routine metabolic panel and blood counts Anxiety 18354837 F41.8 1354402 Significan t anxiety with her sons [facility] ip issues in custody issues Health Concerns Section Related Observation LastModified by Organization Detai ls LastModified Time None Recorded Concern Status LastModified by Organization Details LastModified Time None Recorded Payers Encounter Date Sequence Insurance Name Policy Number Policy Ny Covered Member ID Ny Member ID Guarantor Name 04/19/2025 1 [facility] (MEDICARE REPLACEMENT/A DVANTAGE - HMO) [id number] Elzbieta Galan [id number] Elzbieta Galan Notes Date Note Type Note Provider Name and Address Organization Details Recorded Time 04/19/20 25 text/htm l DiarrheaReported by PatientHPIFor quality, patient reportsworsening,watery,soft, andloose. For aggravating factors, patient reportseatingandstress. For associated symptoms, patient reportsweight loss (___ lbs)but reportsno abdominal pain,no excess gas,no fever,no nausea,no vomiting,no blood in stool,no mucus in stool,no black or tarry stools, andno fecal incontinence. For severity, patient reportsmoderate. For onset/timing, patient reportsno nocturnal symptoms. For context, patient reportsno one else with similar symptoms,no recent camping,no recent picnic,no possible food sources, andno recent travel. For alleviating factors, patient reportsimodiumandpeptobismal. For duration, (approximately 6 months on and off but now more frequent). Patient does have slight increase in A1c putting her in the prediabetes range and she has been managing with diet and exercise. KESHIA Felix Attn: Accounting, [address] [facility], [place], [address], [facility] 04/25/2025 07:28:09 OBGyn Episode No OBEpisode recorded.
--- OUTSIDE RECORDS SUMMARY | 2025-07-14 03:19 | XMS_ITS | Clinical Summary ---
Author Organization [facility] Address [address] [place] [address] Phone Care Team Providers Care Inspector Government Property Name Role Phone Nick Rubi Primary Care Pr ovider Allergies Active Allergy Reactions Criticality Noted Date Comments Cephalexin Syncope,Mental status changes High Reaction: Mental Status Changes, fainting, Codeine Nausea only,Vomiting,Fev er Reaction: Nausea, Vomiting, , Reaction: Fever, Vomiting, Isothiazolinones Anaphylaxis High 06/02/2023 Latex Rash Medium 06/02/2023 Methylchloroisothiazolinone Anaphylaxis High 023 Reaction: RASH Bptsvyz-Frc-Cyr Reductase Inhibitors Unknown 03/09/2024 Medications amLODIPine (NORVASC) 10 mg tabletIndicatio ns:hypertension Take 1 tablet (10 mg total) by mouth daily Active cholecalciferol (VITAMIN D-3) 40177 unit capsule Take 1 capsule (10,000 Units [...] HISTORY 2011 colonscopy 08/2011: Dr. 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 GENERAL GUIDELINES: According to WHO guidelines, [...] Dual x-ray absorptiometry (DEXA) was performed using Idibon system. GENERAL GUIDELINES: According to WHO guidelines, [...] CDT PROCEDURE REPORT Patient: THERESA GALAN Account: [id number] Room No: : 1950 Patient Type: [facility] Attend.: Christian Noland M.D. Admit Date: 12/02/2011 Dict.: Christian Noland M.D. Disch. Date: NAME OF PROCEDURE: Colonoscopy. HISTORY: 61-year-old female with blood in the stool. PHYSICAL EXAMINATION: Well-developed female. Lungs are clear.Cardiovascular examination is unremarkable. PROCEDURE: Colonoscopy was performed with a Appiphany videoendoscope.The patient was premedicated by Anesthesia. On [...] MD On 12/04/2011 08:33:09 AM Historical Provider ENDOSCOPY PROCEDURES Sharda l Result from Last 3 Months or Most Recently Relevant to Health Maintenance Insurance HMO REF HMO REF [facility] MEDICARE ADVANTAGE Care Teams Inspector Government Property Relationship Specialty Start Date End Date Nick Rubi PA PCP - General 05/15/20
--- OUTSIDE RECORDS SUMMARY | 2025-07-14 03:19 | XMS_ITS | Data Portability ---
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 Name Role Phone NICK RUBI Primary Care Provider Unavailab le Assessment Encounter Date Assessment Date Assessment LastModified by Organization Details LastModified Time 04/28/2024 04/28/2024 Mammogram UTD [facility] DEXA Not available 04/28/2024 15:43:22 04/19/2025 04/19/2025 Cologuard negative May 12, 2024 Not available 04/19/2025 14:34:38 06/06/2025 06/06/2025 diagnostic mammogram: BI-RADS assessment category: [...] available Lab hepatic function panel, serum 2024 [facility], [address] [place], [address], 06/18/2025 03:37:24 BMP, serum or plasma 2024 025 [facility], [address] [place], [address], 06/18/2025 03:37:24 CBC w/ auto diff 2024 025 [employer] [facility], [address] [place], [address], 06/18/2025 03:37:25 TSH + free T4, serum 2024 025 [employer] [facility], [facility] [place], [address], 06/18/2025 03:37:24 HbA1c (hemoglob in A1c), blood 2024 025 [employer] [facility], [facility] [place], [address], 06/18/2025 03:37:25 vitamin D, 25-hydrox y, total, serum 2024 025 [employer] [facility], [address] [place], [address], 06/18/2025 03:37:25 lipid panel, serum 2024 025 [employer] [facility], [address] [facility] [place], [address], 06/18/2025 03:37:23 celiac disease comprehen sive panel, serum 2024 025 [employer] [facility], [address], [place], [address], 04/25/2025 14:49:02 O&P (ova & parasites ), stool 2024 025 [facility], [address], [place], [address], 05/01/2025 09:48:52 C diff toxin A+B, qualitati ve, stool 2024 025 [facility], [address], [place], [address], 04/26/2025 11:29:52 wbc, stool 2024 025 [employer] [facility], [address], [place], [address], 05/01/2025 09:48:51 salmonell a sp + shigella sp, culture, stool 2024 025 [employer] [facility], [address], [place], [address], 05/01/2025 09:48:51 cryptospo ridium Ag, stool 2024 025 [employer] [facility], [address], [place], [address], 05/01/2025 09:48:50 campyloba cter sp, culture, unspecifi ed specimen 2024 025 [employer] [facility], [address], [place], [address], 05/01/2025 09:48:50 TSH, serum or plasma 2024 025 [employer] [facility], [address], [place], [address], 04/25/2025 14:49:09 CBC w/ auto diff 2024 025 [employer] [facility], [address], [place], [address], 04/25/2025 14:49:07 lipase, serum or plasma 2024 025 [employer] [facility], [address], [place], [address], 04/25/2025 14:49:11 BMP, serum or plasma 2024 025 [facility], [address], [place], [address], 04/25/2025 14:49:04 hepatic function panel, serum 2024 025 [place] [facility], [address], [place], [address], 04/25/2025 14:49:06 amylase, serum or plasma 2024 025 [place] [facility], [address], [place], [address], 04/25/2025 14:49:10 HbA1c (hemoglob in A1c), blood 2023 024 [facility], [address], [place], [address], 06/07/2024 10:38:18 hepatic function panel, serum 2023 024 [facility], [address], [place], [address], 05/25/2024 17:23:25 CBC w/ auto diff 2023 024 [facility] [employer] [facility], [address], [place], [address], 05/25/2024 17:22:37 BMP, serum or plasma 2023 024 [facility] [employer] [facility], [address], [place], [address], 05/25/2024 17:21:24 TSH + free T4, serum 2023 024 [employer] [facility], [address], [place], [address], 05/20/2024 17:55:08 lipid panel, serum 2023 024 [facility], [address], [place], [address], 05/25/2024 17:23:19 noninvasi ve colorecta l cancer DNA + occult blood screening , QL, stool - pt due 07/31/2024 for repeat. 2023 024 [place] [facility], [address], [address], [place], [address], 05/17/2024 20:57:10 Referral None recorded. Procedures diagnosti c colonosco py (PROC) - diarrhea 6 months, no blood or melena, weight loss. 2024 025 [facility], [address], [address], [place], [address], 07/13/2025 04:24:29 Surgeries None recorded. Imaging CT, abdomen + pelvis, w/ contrast 2024 025 [facility] (Imaging), [address], [place], [address], 05/11/2025 13:00:25 MAMMO, screening , digital, bilateral 2023 024 [facility], [address], [address], [place], [address], 10/31/2024 16:43:36 DEXA 2023 024 [facility], [address], [address], [place], [address], 10/31/2024 16:40:37 Medication Orders amlodipin e 10 mg tablet 2023 024 [facility] [address], [place], [address], 04/28/2024 15:54:40 Patient TargetsNo targets recorded. Patient InstructionsNo instructions recorded. Reason for Referral None Reported. Results Created Date Observation Date Name Description Value Unit Range Abnormal Flag Note LastModifiedBy Organization Detail LastModifiedTime 05/12/20 24 05/12/2024 COLOG UARD cologuard result reportable NEGATI VE negati ve normal NEGAT MANJINDER TEST RESUL T. A negat manjidner Colog uard resul t indic ates a [...] of 10,00 0 indiv idual s at [employer] ge risk for color ectal cance r who were scree breezy with both Colog uard and colon oscop y. (Shar Elam. et al, N Engl J Med 2014; 370(1 4):12 86-12 97) The sol l value (refe rence range ) for this assay is negat manjinder. COLOG UARD RE-SC REENI NG RECOM MENDA TION: Perio dic color ectal cance r scree rox is an impor tant part of preve ntive healt hcare for asymp tomat ic indiv idual s at [employer] ge risk for color ectal cance r. Follo [...] stagi ng/ac s-rec ommen datio ns.ht ml.; Trsitan DK, Ruma vaz CR, Jones ibarra JK, Color ectal Cance r Scree rox: Recom menda tions for Physi cians and Patie nts from the U.S. Multi -Soci ety Task Force on Color ectal Cance r Scree rox , Am J Gastr oente rolog y 2017; 112:1 016-1 030. TEST DESCR IPTIO N: [place] site algor ithmi c francine sis of stool DNA-b ioriki thomas with hemog lobin immun oassa y. Quant itati ve value s of indiv idual bioma rkers are not repor table and are not assoc iated with indiv idual bioma rker resul t refer ence range s. Colog uard is inten ded for color ectal cance r scree rox of adult s of eithe r sex, 45 years or older , who are at [facility] for color ectal cance r (CRC) . Colog uard has been appro melissa for use by the U.[place]. FDA. The perfo rmanc e of Colog uard was estab lishe d in a cross secti onal study of [facility] adult s aged 50-84 . Colog uard perfo rmanc e in patie nts ages 45 to 49 years was estim ated by sub-g roup francine sis of near- age group s. Colon oscop ies perfo rmed for a posit manjinder resul t may find as the most clini terri signi patience elam lespranav n: color ectal cance r [4.0% ], [...] study of 0 indiv idual s at [employer] ge risk for color ectal cance r who were scree breezy with both Colog uard and colon oscop y. (Shar Milian al, N Engl J Med 2014; 370(1 [...] d can be acces sed at the follo wing locat ion: www.e xactl abs.c om/re sara . Addit ional descr iptio n of the Colog uard test proce ss, warni ngs and preca ution s can be found at www.c valarie solares.c om. Not Available [facility] [address], [place], [address], 05/17/2024 20:57:10 04/20/20 25 04/25/2025 NINA C DISEA SE COMPR EHENS MANJINDER [...] ce of DQ2 or DQ8. Not Available [address], [address], 04/25/2025 14:49:02 04/20/2004/25/2025 NINA C DISEA SE COMPR EHENS MANJINDER PANEL tissue transglutami nase Ab, IgA <1.0 U/mL Value Inter preta tion ----- ----- ----- ---- <15.0 Antib kateryna not detec cara > or = 15.0 Antib kateryna detec cara Not Available [address], [address], 04/25/2025 14:49:02 04/20/2004/25/2025 NINA C DISEA SE COMPR EHENS MANJINDER PANEL immunoglobul in A 239 mg/dL 70-320 Not Available [address], [address], 04/25/2025 14:49:02 04/20/2004/25/2025 BASIC METAB OLIC PANEL glucose 151 mg/dL 65-139 high Non-f astin g refer ence inter eloy Not Available [address], [address], 04/25/2025 14:49:04 04/20/2004/25/2025 BASIC METAB OLIC PANEL urea nitrogen (BUN) 15 mg/dL 7-25 normal Not Available [address], [address], 04/25/2025 14:49:04 04/20/2004/25/2025 BASIC METAB OLIC PANEL creatinine 0.75 mg/dL 0.60-1 .00 normal Not Available [address], [address], 04/25/2025 14:49:04 04/20/2004/25/2025 BASIC METAB OLIC PANEL eGFR 83 mL/mi n/1.7 3m2 > or = 60 normal Not Available [address], [address], 04/25/2025 14:49:04 04/20/2004/25/2025 BASIC METAB OLIC PANEL BUN/creatini ne ratio SEE NOTE: (calc ) 6-22 Not Repor cara: BUN and Creat inine are withi n refer ence range . Not Available [address], [address], 04/25/2025 14:49:04 04/20/2004/25/2025 BASIC METAB OLIC PANEL sodium 136 mmol/ L 135-14 6 normal Not Available [address], [address], 04/25/2025 14:49:04 04/20/2004/25/2025 BASIC METAB OLIC PANEL potassium 3.9 mmol/ L 3.5-5. 3 normal Not Available [address], [address], 04/25/2025 14:49:04 04/20/2004/25/2025 BASIC METAB OLIC PANEL chloride 101 mmol/ L 98-110 normal Not Available [address], [address], 04/25/2025 14:49:04 04/20/2004/25/2025 BASIC METAB OLIC PANEL carbon dioxide 28 mmol/ L 20-32 normal Not Available [address], [address], 04/25/2025 14:49:04 04/20/2004/25/2025 BASIC METAB OLIC PANEL calcium 9.8 mg/dL 8.6-10 .4 normal Not Available [address], [address], 04/25/2025 14:49:04 04/20/2004/25/2025 HEPAT IC FUNCT ION PANEL protein, total 6.6 g/dL 6.1-8. 1 normal Not Available [address], [address], 04/25/2025 14:49:06 04/20/2004/25/2025 HEPAT IC FUNCT ION PANEL albumin 4.0 g/dL 3.6-5. 1 normal Not Available [address], [address], 04/25/2025 14:49:06 04/20/2004/25/2025 HEPAT IC FUNCT ION PANEL globulin 2.6 g/dL_ (calc ) 1.9-3. 7 normal Not Available [address], [address], 04/25/2025 14:49:06 04/20/2004/25/2025 HEPAT IC FUNCT ION PANEL albumin/glob ulin ratio 1.5 (calc ) 1.0-2. 5 normal Not Available [address], [address], 04/25/2025 14:49:06 04/20/2004/25/2025 HEPAT IC FUNCT ION PANEL bilirubin, total 0.4 mg/dL 0.2-1. 2 normal Not Available [address], [address], 04/25/2025 14:49:06 04/20/2004/25/2025 HEPAT IC FUNCT ION PANEL bilirubin, direct 0.1 mg/dL < or = 0.2 normal Not Available [address], [address], 04/25/2025 14:49:06 04/20/2004/25/2025 HEPAT IC FUNCT ION PANEL bilirubin, indirect 0.3 mg/dL _(darrion c) 0.2-1. 2 normal Not Available [address], [address], 04/25/2025 14:49:06 04/20/2004/25/2025 HEPAT IC FUNCT ION PANEL alkaline phosphatase 69 U/L 37-153 normal Not Available [address], [address], 04/25/2025 14:49:06 04/20/2004/25/2025 HEPAT IC FUNCT ION PANEL AST 18 U/L 10-35 normal Not Available [address], [address], 04/25/2025 14:49:06 04/20/2004/25/2025 HEPAT IC FUNCT ION PANEL ALT 11 U/L 6-29 normal Not Available [address], [address], 04/25/2025 14:49:06 04/20/2004/25/2025 CBC (INCL UDES DIFF/ PLT) white blood cell count 6.6 thous and/u L 3.8-10 .8 normal Not Available [address], [address], 04/25/2025 14:49:07 04/20/2004/25/2025 CBC (INCL UDES DIFF/ PLT) red blood cell count 4.35 fannie on/uL 3.80-5 .10 normal Not Available [address], [address], 04/25/2025 14:49:07 04/20/2004/25/2025 CBC (INCL UDES DIFF/ PLT) hemoglobin 13.6 g/dL 11.7-1 5.5 normal Not Available [facility] [address], [address], 04/25/2025 14:49:07 04/20/2004/25/2025 CBC (INCL UDES DIFF/ PLT) hematocrit 41.1 % 35.0-4 5.0 normal Not Available [address], [address], 04/25/2025 14:49:07 04/20/2004/25/2025 CBC (INCL UDES DIFF/ PLT) MCV 94.5 fL 80.0-1 00.0 normal Not Available [address], [address], 04/25/2025 14:49:07 04/20/2004/25/2025 CBC (INCL UDES DIFF/ PLT) MCH 31.3 pg 27.0-3 3.0 normal Not Available [address], [address], 04/25/2025 14:49:07 04/20/2004/25/2025 CBC (INCL UDES DIFF/ PLT) MCHC 33.1 g/dL 32.0-3 6.0 normal For adult s, a sligh t decre ase in the calcu lated MCHC value (in the range of 30 to 32 g/dL) is most likel y not clini terri signi patience t; doron er, it shoul d be inter prete d with cauti on in [facility] lat n with other red cell bhavani eters and the patie nt's clini darrion condi tion. Not Available [address], [address], 04/25/2025 14:49:07 04/20/2004/25/2025 CBC (INCL UDES DIFF/ PLT) RDW 11.8 % 11.0-1 5.0 normal Not Available [address], [address], 04/25/2025 14:49:07 04/20/2004/25/2025 CBC (INCL UDES DIFF/ PLT) platelet count 234 thous and/u L 140-40 0 normal Not Available [address], [address], 04/25/2025 14:49:07 04/20/2004/25/2025 CBC (INCL UDES DIFF/ PLT) MPV 9.1 fL 7.5-12 .5 normal Not Available [address], [address], 04/25/2025 14:49:07 04/20/2004/25/2025 CBC (INCL UDES DIFF/ PLT) absolute neutrophils 4778 cells /uL 1500-7 800 normal Not Available [address], [address], 04/25/2025 14:49:07 04/20/2004/25/2025 CBC (INCL UDES DIFF/ PLT) absolute lymphocytes 1419 cells /uL 850-39 00 normal Not Available [address], [address], 04/25/2025 14:49:07 04/20/2004/25/2025 CBC (INCL UDES DIFF/ PLT) absolute monocytes 343 cells /uL 200-95 0 normal Not Available [address], [address], 04/25/2025 14:49:07 04/20/2004/25/2025 CBC (INCL UDES DIFF/ PLT) absolute eosinophils 20 cells /uL 15-500 normal Not Available [address], [address], 04/25/2025 14:49:07 04/20/2004/25/2025 CBC (INCL UDES DIFF/ PLT) absolute basophils 40 cells /uL 0-200 normal Not Available [address], [address], 04/25/2025 14:49:07 04/20/2004/25/2025 CBC (INCL UDES DIFF/ PLT) neutrophils 72.4 % normal Not Available [address], [address], 04/25/2025 14:49:07 04/20/2004/25/2025 CBC (INCL UDES DIFF/ PLT) lymphocytes 21.5 % normal Not Available [address], [address], 04/25/2025 14:49:07 04/20/2004/25/2025 CBC (INCL UDES DIFF/ PLT) monocytes 5.2 % normal Not Available [facility] [address], [address], 04/25/2025 14:49:07 04/20/2004/25/2025 CBC (INCL UDES DIFF/ PLT) eosinophils 0.3 % normal Not Available [address], [address], 04/25/2025 14:49:07 04/20/2004/25/2025 CBC (INCL UDES DIFF/ PLT) basophils 0.6 % normal Not Available [address], [address], 04/25/2025 14:49:07 04/20/2004/25/2025 TSH W/REF ANTONIO TO FT4 TSH w/reflex to FT4 1.69 mIU/L 0.40-4 .50 normal Not Available [address], [address], 04/25/2025 14:49:09 04/20/2004/25/2025 AMYLA SE amylase 29 U/L 21-101 normal Not Available [address], [address], 04/25/2025 14:49:10 04/20/2004/25/2025 LIPAS E lipase 17 U/L 7-60 normal Not Available [address] [address] [place], [address], 04/25/2025 14:49:11 04/25/20 25 04/26/2025 CLOST RIDIU M DIFFI CILE TOXIN /GDH W/REF L TO PCR clostridium difficile toxin/gdh w/refl to PCR SEE NOTE CLOST RIDIU M DIFFI CILE TOXIN /GDH W/REF L TO PCR Micro Numbe r: [id number] Test Statu s: Final Speci men Sourc e: Stool Speci men Quali ty: Adequ ate GDH Antig en: Not Detec cara Toxin A and B: Not Detec cara COMME NT: No toxig enic C. diffi cile detec cara For addit ional infor calista conte e refer to http: //[facility] suarez.Que stDia gnost ics.c om/fa q/FAQ 136 (This link is being provi ded for infor rosendo nal/e ducat ional purpo ses only. ) Not Available [address] [address] [place], [address], 04/26/2025 11:29:52 04/25/20 25 05/01/[address], CULTU RE campylobacte r culture NOT ISOLAT ED normal REFER ENCE RANGE : NOT ISOLA CARA Not Available [address] [address] [place], [address], 05/01/2025 09:48:50 04/25/20 25 05/01/2025 CRYPT OSPOR IDIUM ANTIG EN, EIA cryptosporid ium antigen, EIA SEE NOTE CRYPT OSPOR IDIUM ANTIG EN, EIA Micro Numbe r: [id number] Test Statu s: Final Speci men Sourc e: Stool Speci men Quali ty: Adequ ate Crypt ospor idium : Not Detec cara Refer ence Range : Not Detec cara NOTE: Due to inter mitte nt sterling ing, one negat manjinder sampl e does not neces saril y rule out the prese nce of a ladan itic infec tion. Not Available [facility] [address] [address] [place], [address], 05/01/2025 09:48:50 04/25/2005/01/2025 FECAL LEUKO CYTE STAIN fecal leukocyte stain SEE NOTE FECAL LEUKO CYTE STAIN Micro Numbe r: [id number] Test Statu s: Final Speci men Sourc e: Stool Speci men Quali ty: Adequ ate Fecal Leuko cyte: Not Detec cara Refer ence Range : Not Detec cara Not Available [facility] [address] [address] [place], [address], 05/01/2025 09:48:51 04/25/2005/01/2025 SALMO KIRTI AND SHIGE LLA, CULTU RE salmonella and shigella, culture SEE NOTE SALMO KIRTI AND SHIGE LLA, CULTU RE Micro Numbe r: [id number] Test Statu s: Final Speci men Sourc e: Stool Speci men Quali ty: Adequ ate Resul t: No Salmo kirti or Shige lla isola cara Not Available [facility] [address] [address] [place], [address], 05/01/2025 09:48:51 04/25/2005/01/2025 OVA AND LADAN ITES WITH GIARD IA ANTIG EN giardia Ag, EIA, stool SEE NOTE GIARD IA AG, EIA, STOOL Micro Numbe r: [id number] Test Statu s: Final Speci men Sourc e: Stool Speci men Quali ty: Adequ ate Giard ia Resul t 1: Not Detec cara Refer ence Range : Not Detec cara NOTE: Due to inter mitte nt sterling ing, one negat manjinder sampl e does not neces saril y rule out the prese nce of a ladan itic infec tion. Not Available [facility] [address] [address] [place], [address], 05/01/2025 09:48:52 04/25/2005/01/2025 OVA AND LADAN ITES WITH GIARD IA ANTIG EN ova and parasites, conc and perm smear SEE NOTE OVA AND LADAN ITES, CONC AND PERM SMEAR Micro Numbe r: [id number] Test Statu s: Final Speci men Sourc e: Stool Speci men Quali ty: Adequ ate JAIDEN NTRAT ION 1: No ova or ldaan ites seen TRICH NARCISA 1: No ova or ladan ites seen Routi ne Ova and Ladan ite exam may not detec t some ladan ites that occas ional ly cause diarr heal illne ss. Crypt ospor idium Antig en and/o r Cyclo spora and Isosp ora Exam may be order ed to detec t these ladan ites. One negat manjinder sampl e does not neces saril y rule out the prese nce of a ladan itic infec tion. For addit ional infor calista conte refer to https ://ed ati on.Wize/f aq/FA Q203 (This link is being provi ded for infor rosendo ricardo/ sushma jimenez l purpo ses only. ) Not Available [facility] [address] [address] [place], [address], 05/01/2025 09:48:52 06/16/2006/18/2025 LIPID PANEL WITH RATIO S cholesterol, total 254 mg/dL <200 high Not Available [facility] [address] [address] [place], [address], 06/18/2025 03:37:23 06/16/2006/18/2025 LIPID PANEL WITH RATIO S HDL cholesterol 64 mg/dL > or = 50 normal Not Available [facility] [address] [address] [place], [address], 06/18/2025 03:37:23 06/16/20 25 06/18/2025 LIPID PANEL WITH RATIO S triglyceride s 96 mg/dL <150 normal Not Available [facility] [address] [address] [place], [address], 06/18/2025 03:37:23 06/16/2006/18/2025 LIPID PANEL WITH RATIO S LDL-choleste rol 169 mg/dL _(darrion c) high Refer ence range : <100 Marifer able range <100 mg/dL for prima ry preve ntion ; <70 mg/dL for patie nts with CHD or diabe tic patie nts with > or = 2 CHD risk facto rs. LDL-C is now calcu lated using the Blanca n-Hop kins naomieu earl n, which is a valid ated novel kalyani santamaria josephine r accur acy than the Fried slime equat ion in the estim ation of LDL-C . Blanca suarez SS et al. PAUL. 2013; 310(1 9): 2061- 2068 (http ://ed ucati on.Qu Ever TV189.com. com/f aq/FA Q164) Not Available [facility] [address] [place], [address], 06/18/2025 03:37:23 06/16/2006/18/2025 LIPID PANEL WITH RATIO S chol/HDLC ratio 4.0 (calc ) <5.0 normal Not Available [facility] [address] [place], [address], 06/18/2025 03:37:23 06/16/2006/18/2025 LIPID PANEL WITH RATIO S LDL/HDL ratio 2.6 (calc ) Below avera ge Risk: <2.34 [place] ge Risk: 2.35- 4.12 Moder ate Risk: 4.13- 5.56 High Risk: >5.57 Not Available [facility] [address] [place], [address], 06/18/2025 03:37:23 06/16/2006/18/2025 LIPID PANEL WITH RATIO S non HDL cholesterol 190 mg/dL _(darrion c) <130 high For patie nts with diabe fernandez plus 1 major ASCVD risk facto r, treat ing to a non-H DL-C goal of <100 mg/dL (LDL- C of <70 mg/dL ) is consi dered a thera peuti c optio n. Not Available [address] [address] [place], [address], 06/18/2025 03:37:23 06/16/2006/18/2025 TSH+F REE T4 TSH 1.41 mIU/L 0.40-4 .50 normal Not Available [address] [place], [address], 06/18/2025 03:37:24 06/16/2006/18/2025 TSH+F REE T4 T4, free 1.0 NG/dL 0.8-1. 8 normal Not Available [address], [address], 06/18/2025 03:37:24 06/16/2006/18/2025 BASIC METAB OLIC PANEL glucose 79 mg/dL 65-99 normal Fasti ng refer ence inter eloy Not Available [address], [address], 06/18/2025 03:37:24 06/16/2006/18/2025 BASIC METAB OLIC PANEL urea nitrogen (BUN) 14 mg/dL 7-25 normal Not Available [address], [address], 06/18/2025 03:37:24 06/16/2006/18/2025 BASIC METAB OLIC PANEL creatinine 0.67 mg/dL 0.60-1 .00 normal Not Available [address], [address], 06/18/2025 03:37:24 06/16/2006/18/2025 BASIC METAB OLIC PANEL eGFR 91 mL/mi n/1.7 3m2 > or = 60 normal Not Available [address], [address], 06/18/2025 03:37:24 06/16/2006/18/2025 BASIC METAB OLIC PANEL BUN/creatini ne ratio SEE NOTE: (calc ) 6-22 Not Repor cara: BUN and Creat inine are withi n refer ence range . Not Available [address], [address], 06/18/2025 03:37:24 06/16/2006/18/2025 BASIC METAB OLIC PANEL sodium 140 mmol/ L 135-14 6 normal Not Available [address], [address], 06/18/2025 03:37:24 06/16/2006/18/2025 BASIC METAB OLIC PANEL potassium 4.4 mmol/ L 3.5-5. 3 normal Not Available [address], [address], 06/18/2025 03:37:24 06/16/2006/18/2025 BASIC METAB OLIC PANEL chloride 103 mmol/ L 98-110 normal Not Available [address], [address], 06/18/2025 03:37:24 06/16/2006/18/2025 BASIC METAB OLIC PANEL carbon dioxide 30 mmol/ L 20-32 normal Not Available [address], [address], 06/18/2025 03:37:24 06/16/2006/18/2025 BASIC METAB OLIC PANEL calcium 9.9 mg/dL 8.6-10 .4 normal Not Available [address], [address], 06/18/2025 03:37:24 06/16/2006/18/2025 HEPAT IC FUNCT ION PANEL protein, total 6.9 g/dL 6.1-8. 1 normal Not Available [address] [place], [address], 06/18/2025 03:37:24 06/16/2006/18/2025 HEPAT IC FUNCT ION PANEL albumin 4.3 g/dL 3.6-5. 1 normal Not Available [address], [address], 06/18/2025 03:37:24 06/16/2006/18/2025 HEPAT IC FUNCT ION PANEL globulin 2.6 g/dL_ (calc ) 1.9-3. 7 normal Not Available [address], [address], 06/18/2025 03:37:24 06/16/2006/18/2025 HEPAT IC FUNCT ION PANEL albumin/glob ulin ratio 1.7 (calc ) 1.0-2. 5 normal Not Available [address], [address], 06/18/2025 03:37:24 06/16/2006/18/2025 HEPAT IC FUNCT ION PANEL bilirubin, total 0.6 mg/dL 0.2-1. 2 normal Not Available [address], [address], 06/18/2025 03:37:24 06/16/2006/18/2025 HEPAT IC FUNCT ION PANEL bilirubin, direct 0.1 mg/dL < or = 0.2 normal Not Available [address], [address], 06/18/2025 03:37:24 06/16/2006/18/2025 HEPAT IC FUNCT ION PANEL bilirubin, indirect 0.5 mg/dL _(darrion c) 0.2-1. 2 normal Not Available [address], [address], 06/18/2025 03:37:24 06/16/20 06/18/2025 HEPAT IC FUNCT ION PANEL alkaline phosphatase 65 U/L 37-153 normal Not Available [facility] [employer] [address], [address], 06/18/2025 03:37:24 06/16/20 25 06/18/2025 HEPAT IC FUNCT ION PANEL AST 27 U/L 10-35 normal Not Available [address], [address], 06/18/2025 03:37:24 06/16/20 25 06/18/2025 HEPAT IC FUNCT ION PANEL ALT 20 U/L 6-29 normal Not Available [address], [address], 06/18/2025 03:37:24 06/16/2006/18/2025 CBC (INCL UDES DIFF/ PLT) white blood cell count 6.7 thous and/u L 3.8-10 .8 normal Not Available [address], [address], 06/18/2025 03:37:25 06/16/2006/18/2025 CBC (INCL UDES DIFF/ PLT) red blood cell count 4.55 fannie on/uL 3.80-5 .10 normal Not Available [address], [address], 06/18/2025 03:37:25 06/16/2006/18/2025 CBC (INCL UDES DIFF/ PLT) hemoglobin 14.3 g/dL 11.7-1 5.5 normal Not Available [address], [address], 06/18/2025 03:37:25 06/16/20 25 06/18/2025 CBC (INCL UDES DIFF/ PLT) hematocrit 43.8 % 35.0-4 5.0 normal Not Available [address] [place], [address], 06/18/2025 03:37:25 06/16/2006/18/2025 CBC (INCL UDES DIFF/ PLT) MCV 96.3 fL 80.0-1 00.0 normal Not Available [facility] [address], [address], 06/18/2025 03:37:25 06/16/2006/18/2025 CBC (INCL UDES DIFF/ PLT) MCH 31.4 pg 27.0-3 3.0 normal Not Available [facility] [address], [address], 06/18/2025 03:37:25 06/16/2006/18/2025 CBC (INCL UDES DIFF/ PLT) MCHC 32.6 g/dL 32.0-3 6.0 normal For adult s, a sligh t decre ase in the calcu lated MCHC value (in the range of 30 to 32 g/dL) is most likel y not clini terri signi fican t; doron er, it shoul d be inter prete d with cauti on in [facility] n with other red cell bhavani eters and the patie nt's clini darrion condi tion. Not Available [address], [address], 06/18/2025 03:37:25 06/16/2006/18/2025 CBC (INCL UDES DIFF/ PLT) RDW 12.2 % 11.0-1 5.0 normal Not Available [facility] [address], [address], 06/18/2025 03:37:25 06/16/2006/18/2025 CBC (INCL UDES DIFF/ PLT) platelet count 211 thous and/u L 140-40 0 normal Not Available [facility] [address], [address], 06/18/2025 03:37:25 06/16/2006/18/2025 CBC (INCL UDES DIFF/ PLT) MPV 9.4 fL 7.5-12 .5 normal Not Available [address], [address], 06/18/2025 03:37:25 06/16/2006/18/2025 CBC (INCL UDES DIFF/ PLT) absolute neutrophils 4496 cells /uL 1500-7 800 normal Not Available [address], [address], 06/18/2025 03:37:25 06/16/2006/18/2025 CBC (INCL UDES DIFF/ PLT) absolute lymphocytes 1608 cells /uL 850-39 00 normal Not Available [address], [address], 06/18/2025 03:37:25 06/16/2006/18/2025 CBC (INCL UDES DIFF/ PLT) absolute monocytes 409 cells /uL 200-95 0 normal Not Available [address], [address], 06/18/2025 03:37:25 06/16/2006/18/2025 CBC (INCL UDES DIFF/ PLT) absolute eosinophils 141 cells /uL 15-500 normal Not Available [address], [address], 06/18/2025 03:37:25 06/16/2006/18/2025 CBC (INCL UDES DIFF/ PLT) absolute basophils 47 cells /uL 0-200 normal Not Available [address], [address], 06/18/2025 03:37:25 06/16/20 25 06/18/2025 CBC (INCL UDES DIFF/ PLT) neutrophils 67.1 % normal Not Available [address], [address], 06/18/2025 03:37:25 06/16/2006/18/2025 CBC (INCL UDES DIFF/ PLT) lymphocytes 24.0 % normal Not Available [address], [address], 06/18/2025 03:37:25 06/16/2006/18/2025 CBC (INCL UDES DIFF/ PLT) monocytes 6.1 % normal Not Available [address], [address], 06/18/2025 03:37:25 06/16/2006/18/2025 CBC (INCL UDES DIFF/ PLT) eosinophils 2.1 % normal Not Available [address], [address], 06/18/2025 03:37:25 06/16/2006/18/2025 CBC (INCL UDES DIFF/ PLT) basophils 0.7 % normal Not Available [address], [address], 06/18/2025 03:37:25 06/16/2006/18/2025 VITAM IN D,25- [place],TO [...] /MS is recom sallie d: order code 24585 (shonna ents >2yrs ). See Note 1 Note 1 For addit ional infor calista conte e refer to http: //darlene jamesQue stDia gnost ics.c om/fa q/FAQ 199 (This link is being provi ded for infor rosendo ricardo/ sushma santos purpo ses only. ) Not Available [facility] [address], [place], [address], 06/18/2025 03:37:25 06/16/2006/18/2025 HEMOG LOBIN A1C hemoglobin A1C 5.4 %_of_ total _HGB <5.7 normal For the purpo se of scree rox for the prese nce of diabe fernandez: <5.7% Consi stent with the absen ce of diabe fernandez 5.7-6 .4% Consi stent with incre ased risk for diabe fernandez (pred iabet es) > or =6.5% Consi stent with diabe fernandez This assay resul t is consi stent with a decre ased risk of diabe fernandez. Curre ntly, no conse nsus exist s regar ding use of hemog lobin A1c for diagn [...] Care in Diabe fernandez(A DA). Not Available [facility] [address], [place], [address], 06/18/2025 03:37:25 08/26/19 25 09/20/2022 MAMMO , gurmeet vacag, tomos ynthe sis, bilat eral No observ ation record ed. [email or web address] Not Available 08/26 16:21:25 11/01/19 25 09/24/2024 DEXA No observ ation record ed. [facility] (Radiology) [address], [place], [address], 11/10/2024 10:19:15 11/01/19 25 09/24/2024 MAMMO , scree rox, digit al, bilat eral No observ ation record ed. [facility] [address], [place], [address], 11/09/2024 14:23:50 05/11/20 25 05/11/2025 CT, abdom en + pelvi s, w/ contr ast No observ ation record ed. [facility] [address], [place], [address], 05/12/2025 16:43:49 Result Notes None recorded. Problems Name Problem SNOMED Code Status Onset Date Resolution Date Notes Provider Name and Address Organization Details Recorded Time Body mass index 20-24 - normal 759111565 Active 2023 Cris Graff MA null, [place] - [facility] 4 15:18:47 Osteopenia 355253260 Active 2023 KESHIA Felix Attn: Accountin g,[address] [facility], [place], [address], [facility] - [facility] 5 14:08:14 Long-term drug therapy Active 2023 KESHIA Felix Attn: Accountin g,[address] [facility], [place], [address], [facility] - SIF 4 23:49:34 Blood glucose outside reference range 940643042 Active 2023 KESHIA Felix Attn: Accountin g,[address] [facility], [place], [address], [place] - [facility] 4 23:49:56 Hyperlipidemia 76661065 Active 2023 KESHIA Felix Attn: Morenain g,[address] [facility], [place], [address], [facility] - SIF 5 14:08:10 Benign essential hypertension 7370361 Active 2023 KESHIA Felix Attn: David ty,[address] [facility], [place], [address], [facility] - SIF 5 14:08:09 Body mass index less than 20 318146240 Active 2024 KESHIA Felix Attn: David ty,[address] [facility], [place], [address], [facility] - [facility]IF 14:27:37 Anxiety 10287710 Active 2024 KESHIA Felix Attn: David ty,[address] [facility], [place], [address], [facility] - [facility] 5 07:27:35 Cholelithiasis without obstruction 52989358 Active 2024 KESHIA Felix Attn: David ty,[address] [facility], [place], [address], [facility] - SIF 14:03:34 Long-term current use of drug therapy 353637540 Active 2024 KESHIA Felix Attn: David ty,[address] [facility], [place], [address], [facility] - SIF 14:19:52 Problem Notes None recorded. Procedures Surgical History Date Name Laterality Status Provider Name and Address Organization Details Recorded Time Appendectomy completed Cris Graff MA [facility] 04/28/2024 15:12:11 hysterectomy completed Cris Graff MA [facility] 04/28/2024 15:15:32 Tonsillectomy completed Cris Graff MA [facility] 04/28/2024 15:15:39 Breast reduction completed HERON Muñoz [facility] 04/28/2024 15:15:44 Eye Surgery completed Cris Graff MA [facility] 04/28/2024 15:15:58 Imaging Results None recorded. Procedure Notes None recorded. Medical Equipment None Reported. Allergies Allergen ID Allergen Name Allergen Category Reaction Reaction Severity Criticality Documentation Date Start Date Code Code System Note Provider Name and Address Organization Details Recorded Time 132129 codeine medicatio n vomiting severe high 03/09/2024 2670 RxNorm Elisa Hoover LPN null, [place] - [facility] 4 17:34:55 118569 latex environme nt,medica tion rash moderate high 03/09/2024 29364 91 RxNorm Elisa Hoover SOLDER DEPOSIT OPERATOR null, [place] - [facility] 4 17:35:53 411241 cephalexi n medicatio n Not available Not available high 04/19/2025 2231 RxNorm React ion: Menta l Statu s Awad es, faint ing, unrec ogniz ed react ion (text : Synco pe, code: 89175 4007) (from [facility]) unrec ogniz ed react ion (text : Menta l statu s awad es, code: 62044 4004) (from [facility]) HERON Muñoz, [place] - [facility] 5 14:05:03 733164 ezetimibe medicatio n Not available Not available Not available 04/19/2025 56837 8 RxNorm unrec ogniz ed react ion (text : Unkno wn, code: 62135 5006) (from [facility]) HERON Muñoz, [place] - [facility] 5 14:05:05 577257 fenofibra te medicatio n Not available Not available Not available 06/06/2025 8703 RxNorm unrec ogniz ed react ion (text : Unkno wn, code: 66105 5006) (from [facility]) Cris Graff MA null, [place] - [facility] 5 13:54:56 Medications Name Sig Start Date Stop [...] Updated DateTime 5 165.1 cm 19 kg/m2 86632.5 3 g 18 /min 100 % 99 /min 126/82 mm[Hg] Cris Graff MA [facility] 14:09:01 Date Recorded Systolic And Diastolic Provider Name and Address Organization Details Last Updated DateTime 04/28/2024 140/90 mm[Hg] KESHIA Felix Attn: Accounting,[address] [place], [address], [facility] 04/28/2024 15:52:09 Date Recorded Body weight Respiratory rate Body mass index (BMI) Body height Oxygen saturation Heart rate Systolic And Diastolic Provider Name and Address Organization Details Last Updated DateTime 4 41577.7 4 g 18 /min 21.8 kg/m2 165.1 cm 98 % 68 /min 140/88 mm[Hg] Cris Graff MA [facility] 4 15:21:34 Date Recorded Body mass index (BMI) Body weight Respiratory rate Systolic And Diastolic Provider Name and Address Organization Details Last Updated DateTime 06/06/2025 20 kg/m2 71540.73 g 18 /min 130/80 mm[Hg] KESHIA Felix Attn: Accounting ,[address] [place], [address] , [facility] 06/06/2025 14:19:32 Date Recorded Body height Oxygen saturation Heart rate Systolic And Diastolic Provider Name and Address Organization Details Last Updated DateTime 06/06/2025 165.1 cm 99 % 71 /min 128/82 mm[Hg] Cris Graff MA [facility] 06/06/2025 13:57:12 Social History Question Answer Notes LastModified by Organizat ion Details LastModified Time Tobacco Smoking Status Current Every Day Smoker Cris Graff [facility], [place] - [facility] 04/28/2024 15:13:27 Do You Have An Advance [...] Pressure Y Cancer N GI Problems N Blood Clots N COPD N Depression N Skin Problems Y High Cholesterol Y Gynecological History Statement/Question Response Menses Monthly N Current Control Method Hysterectom y Obstetrics History GPAL:G 1 P 0 0 0 0 Immunizations Vaccine Type Date Status Note Provider Nam e and Address Organization Details Recorded Time influenza, split (incl. purified surface antigen) 11/21/2013 completed Not Available [facility] 13:49:07 Past Encounters Encounter ID Performer Location Encounter Start Date Encounter Closed Date Diagnosis/Indication Diagnosis SNOMED-CT Code Diagnosis ICD10 Code Diagnosis IMO Codes Diagnosis Note [id number] Ge Wynn MD [facility] [place] [address] [place] [address] 04/28/2024 14:37:36 04/29/2024 08:27:48 Body mass index 20-24 - normal 234614120 Z68.21 BMI is 21.8 Benign ess ential hypertension 8671773 I10 Refill amlodipine 10 mg daily. Blood pressure is 140/90 today always with a slight elevation in the office setting. Overall stable. Long-term drug therapy 244226949 Z79.899 All routine labs were ordered fasting Hyperlipidemia 74242235 E78.5 Fasting lipid panel is due. Patient is managing with diet and exercise Screening for malignant neoplasm of colon 793293817 Z12.11 Patient opts for Cologuard screening method Osteopenia 679991431 M85 .80 History of osteopenia , patient is due for routine DEXA scan. Screening mammography 24 125979 Z12.31 Annual mammogram is due Blood gluc ose outside reference range 310789201 R73.09 A1c has been just slightly above normal range. She is due for updated labs Adult [facility] th examination 887005584 Z00.01 Annual wellness exam completed [id number] Ge Wynn MD [facility] [address] [place] [address] 04/19/2025 13:56:18 04/19/2025 14:38:29 Body mass index less than 20 292911031 Z68.6 4836675638 BMI has decreased to 19 Chronic diarrhea 8071972 09 K52.9 288[address] Send for full stool culture panel as well as celiac comprehens manjinder panel and refer for diagnostic colonoscop y as soon as possible. Follow up after testing Unintentio nal weight loss 272653362 R63.4 [id number] Screening thyroid labs as well as amylase lipase routine metabolic panel and blood counts Anxiety 15826751 F41.8 0117252 Significan t anxiety with her sons [facility] issues in custody issues [id number] eG Wynn MD [facility] [address] [place] [address] 06/06/2025 13:48:36 06/06/2025 14:49:25 Adult health examination 610977348 Z00.00 [id number] Annual wellness exam completed Benign ess ential hypertension 3910740 I10 Stable on amlodipine 10 mg daily. 130/80 today Hyperlipidemia 90479165 E78.5 Fasting lipid panel is due. Patient is managing with diet and exercise Osteopenia 184680469 M85 .80 History of osteopenia , DEXA scan 09/2024. Due for vitamin-D lab Blood gluc ose outside reference range 315397464 R73.09 Remotely A1c was above range but has dropped down last year into the normal range. She is due for updated labs Long-term current use of drug therapy 933433253 Z79.899 [id number] All routine labs were ordered fasting Cholelithi asis without obstruction 97299162 K80.20 [id number] Large gallstone noted incidental ly on CT scan. Asymptomat ic Health Concerns Section Related Observation LastModified by Organization Detai ls LastModified Time None Recorded Concern Status LastModified by Organization Details LastModified Time None Recorded Advance Directives Directive Y: Payers Insurance Date Sequence Insurance Name Policy Number Policy Ny Covered Member ID Ny Member ID Guarantor Name 06/26/2025 1 [facility] (MEDICARE REPLACEMENT/A DVANTAGE - HMO) [id number] Elzbieta Galan [id number] Elzbieta Galan Notes Date Note Type Note Provider Name and Address Organization Details Recorded Time 04/28/20 24 text/htm l HyperlipidemiaReported by PatientPatient has been controlling hyperlipidemia with her diet and exercise HypertensionReported by PatientPatient is taking amlodipine 10 mg daily for blood pressure management. She has no complaints Patient does have slight increase in A1c putting her in the prediabetes range and she has been managing with diet and exercise. KESHAI Felix Attn: Accounting, [address] [place], [address], [place] - [facility] 05/01/2024 23:50:43 04/19/20 25 text/htm l DiarrheaReported by PatientHPIFor [...] and exercise. KESHIA Felix Attn: Accounting, [address] [place], [address], [facility] 04/25/2025 07:28:09 06/06/20 25 text/htm l HyperlipidemiaReported by PatientPatient has been controlling hyperlipidemia with her diet and exercise HypertensionReported by PatientPatient is taking amlodipine 10 mg daily for blood pressure management. She has no complaints Patient does have slight increase in A1c putting her in the prediabetes range and she has been managing with diet and exercise. KESHIA Felix Attn: Accounting, [address] [facility], [place], [address], [facility] 06/24/2025 22:46:10 OBGyn Episode No OBEpisode recorded.
--- OUTSIDE RECORDS SUMMARY | 2025-07-14 03:19 | XMS_ITS | Clinical Summary ---
Author Organization [facility] whoactually Address [address] [place] [address] Care Team Providers Care Scheduling Coordinator Name Role Phone Ge Wynn MD Primary Care Provider [phone] Source Comments [facility] whoactually,non-owned Affiliates and Associated Physician Practices is amultiple site organization consisting of ambulatory clinics and hospital sitesin [place], [place] and [place]. This disclosure is being madepursuant to the Care Everywhere program and may not contain all information available regarding this patient. Last updated 18.[facility] whoactually Family History Medical History Relation Name Comments Cancer - Breast Paternal Aunt unsure of a ge Cancer - Breast Sister Relation Name Status Comments Paternal Aunt Sister Social History Tobacco Use Types Packs/Day Years Used Date Smoking Tobacco: Never Assessed Comments No Sex and Gender Information Value Date Recorded Sex Assigned at Not on file Legal Sex Female 5:57 AM TEST PREPARATION TUTOR Gender Identity Not on file Sexual Orientation Not on file Last Filed Vital Signs Vital Sign Reading Time Taken Comments Blood Pressure - - Pulse - - Temperature - - Respiratory Rate - - Oxygen Saturation - - Inhaled Oxygen Concentration - - Weight 56.7 kg (125 lb) 10/19/2024 10:55 AM TEST PREPARATION TUTOR Height 165.1 cm (5' 5) 10/19/2024 10:55 AM TEST PREPARATION TUTOR Body Mass Index 20.8 10/19/2024 10:55 AM TEST PREPARATION TUTOR Plan of Treatment Health Maintenance Due Date [...] 75+ series) 2025 COVID-19 VACCINE (1 - 2024- season) 2025 INFLUENZA VACCINE (#1) 2025 11/21/2013 [...] SCREENING W COLIN Routine 09/24/2024 11:43 AM TEST PREPARATION TUTOR Encounter for screening mammogram for breast cancer Osteopenia, unspecified location DEXA BONE DENSITY AXIAL SKELETON Routine 09/24/2024 11:20 AM TEST PREPARATION TUTOR Osteopenia, unspecified location from Last 3 Months or Most Recently Relevant to Health Maintenance Results * Mammo Bilat Screening W Colin (09/24/2024 11:43 AM TEST PREPARATION TUTOR) Anatomical Region Laterality Modality Breast Bilateral Mammography 09/25/2024 12:4 1 PM TEST PREPARATION TUTOR Impressions 09/25/2024 12:46 PM TEST PREPARATION TUTOR IMPRESSION: LEFT diagnostic mammogram and possible left breast ultrasound are now recommended. OVERALL FINAL ASSESSMENT: BI-RADS Category 0. Incomplete - Need additional imaging evaluation. > Interpreting Provider: Martine Bernal MD on 09/25/2024 12:46 PM Narrative 09/25/2024 12:46 PM TEST PREPARATION TUTOR EXAMINATION: BILATERAL DIGITAL SCREENING MAMMOGRAM AND BILATERAL [...] BONE DENSITY AXIAL SKELETON (09/24/2024 11:20 AM TEST PREPARATION TUTOR) Anatomical Region Laterality Modality Mammography 09/24/2024 1:41 PM TEST PREPARATION TUTOR Narrative 09/24/2024 1:43 PM TEST PREPARATION TUTOR BONE MINERAL DENSITY STUDY INDICATION: Osteoporosis screening. [...] Insurance [employer] MEDICARE [employer] [place] [address] Care Teams Scheduling Coordinator Relationship Specialty Start Date End Date Ge Wynn MD PCP - General Internal Medicine 04/11/17
[2025-07-14 13:26] VITALS: BP 142/76; PULSE 87; RESP 16; TEMP 36.5; O2SAT 98; BMI 20.9
[2025-07-14] MEDS: LACTATED RINGERS 1,000 ML 150 ML IV CONT (13:41)
--- NOTE | 2025-07-14 14:27 | WPDANESEPPF ---
Anes - Initial Pre Proc Eval Procedure: Operation Date: 07/14/25 14:30 Proposed Procedures p Diagnostic Colonoscopy - Juvencio Hernandez MD Date/Time: 07/14/25 14:27 Surgeon: Juvencio Hernandez MD Pre Op Diagnosis: Noninfective gastroenteritis and colitis, unspecif Patient Data Age: 75 Gender: F Height: 1.63 m Weight: 55.5 kg Last Vital Signs Temp 97.7 F 07/14/25 13:26 Pulse 87 07/14/25 13:26 Resp 16 07/14/25 13:26 BP 142/76 H 07/14/25 13:26 Pulse Ox 98 07/14/25 13:26 O2 Del Method Room Air 07/14/25 13:26 Allergies Allergy/AdvReac Type Severity Reaction Status Date / Time methylisothiazolinone Allergy Severe Anaphylaxis Verified 07/12/25 13:43 latex Allergy Rash Verified 06/27/25 13:36 methylchloroisothiazolinone Allergy Anaphylaxis Verified 06/27/25 13:36 chloroisothiazolinone Allergy Severe Anaphylaxis Uncoded 07/12/25 13:43 isothiazolone Allergy Severe Anaphylaxis Uncoded 07/12/25 13:43 CLEANING CHEMICALS Allergy Anaphylaxis Uncoded 05/25/25 11:18 Home Medications ?Medication ?Instructions ?Recorded ?Confirmed ?Type B-complex with vitamin C 1 cap PO DAILY 09/24/21 07/14/25 History Collagen Powder See Rx Instructions .Route .COMPLEX 09/24/21 07/14/25 History Probiotic Formula 51 billion cells DAILY 09/24/21 05/25/25 History Raw Honey 1 tsp DAILY 09/24/21 05/25/25 History amlodipine 10 mg tablet 10 mg PO DAILY 09/24/21 07/14/25 History ascorbic acid (vitamin C) 500 mg 500 mg PO DAILY 09/24/21 07/14/25 History tablet,extended release (Vitamin C ER) cholecalciferol (vitamin D3) 125 125 mcg PO DAILY 09/24/21 07/14/25 History mcg (5,000 unit) tablet coenzyme Q10 100 mg capsule 100 mg PO DAILY 09/24/21 07/14/25 History (CoQ-10) glucosamine sulf dipot 1 cap PO DAILY 09/24/21 07/14/25 History chlr,msm,chond 550 mg-C 30 mg-jessie 1 mg capsule (Glucosamine Chondroitin) rfmzmtfu-cjv-btwfj ac 400 2 tablet PO DAILY 09/24/21 07/14/25 History mcg-calcium carb 500 mg-vit K1 20 mcg tablet (Women's 50 Plus Multivitamin) omega-3 fatty acids-fish oil 300 1 cap PO DAILY 09/24/21 07/14/25 History mg-500 mg capsule (Fish Oil) cyanocobalamin (vitamin B-12) 1,000 mcg PO DAILY 04/06/23 07/14/25 History 1,000 mcg capsule clobetasol 0.05 % topical ointment 1 applic topical BID #45 grams 10/27/23 07/14/25 Rx vitamin K2 45 mcg capsule 45 mcg PO DAILY 04/14/25 07/14/25 History Patient hx anesthesia problems: none Family hx anesthesia problems: none Results Review: All pre-operative results and documents have been reviewed as part of the pre-operative evaluation. [facility] Past Medical History Medical History Chronic diarrhea Breast asymmetry Screening mammogram, encounter for Insomnia High cholesterol Overweight (BMI 25.0-29.9) HTN (hypertension) Surgical History Surgical History History of appendectomy History of bladder suspension procedure (10/07/21) History of tonsillectomy H/O: hysterectomy (08/24/82) hysterectomy/ovaries remain History of eye surgery (08/26/02) lens implants both eyes Hx of breast reduction, elective (10/29/07) S/P breast biopsy, left (02/13/09) left breast sterotactic bx - fibrocystic changes H/O colonoscopy (12/02/11) colonoscopy - sigmoid diverticulosis, hemorrhoidal disease; diffuse melanosis coli Family History Family History Father Hypertension Atherosclerosis Grandparent Diabetes mellitus Sibling Diabetes mellitus Breast cancer Sister Mother Dementia Social History Social History Smoking packs per day: 0.5 Smoking cigarettes per day: 10.0 Years smoked: 40 Smoking pack-years: 20.00 Smoking status: Current every day smoker Tobacco type: cigarettes Second hand tobacco smoke exposure: Yes Alcohol intake: never Substance use: never Substance use type: does not use Do You Feel Safe in your Home?: Yes Lack of Transportation: No Lack of Food: Never True Current Housing: I Have Housing Concerned About Future Housing: No Difficulty Paying Gas/Electric Bills: No Difficulty Paying for Meds: No Currently Unemployed: No Education: High School Diploma/GED Difficulty w/ Childcare or Family Care: No Living arrangements: with family Additional living arrangements comments: Occupation/Education: retired Gender identity (if verbalized by the patient): Female Sexual Orientation (if Verbalized by the Patient): Straight or Heterosexual Spiritual care concerns: No Anes - Eval Final PreProcedure Day of Procedure 07/14/25 14:27 Patient weight: normal and thin Lungs: normal air movement Airway: Mallampati scale class II Neurological: alert and oriented Last oral intake: >/= 8 hours ASA classification: II Emergent: no Anesthetic plan: proceed Anesthesia type and monitoring: general GIVS and standard monitoring Results Review: All pre-operative results and documents have been reviewed as part of the pre-operative evaluation. HTN, smoker, active without cp or sob. Informed Consent: The patient's anesthetic plan and its attendant risks and benefits were discussed with the patient/family/POA. Questions were solicited and answers provided to the satisfaction of the patient/family/POA.
--- NOTE | 2025-07-14 14:40 | PM.HPGS ---
History of Present Illness History of Present Illness Consent: Risks, benefits, and alternatives have been discussed and questions answered. Patient agrees to proceed with procedure. Chief complaint: colon screening Narrative: Elzbieta Galan is a 75 year old female here for colonoscopy, last one about 10 years ago, several weeks ago had diarrhea but back to normal after she started using probiotics, no more issues. Review of Systems Review of Systems: All systems reviewed & are unremarkable except as noted in HPI and below PMFSH Past Medical History Medical History (Updated 07/14/25 @ 14:42 by Juvencio Hernandez MD) Colon cancer screening Chronic diarrhea Breast asymmetry Screening mammogram, encounter for Insomnia High cholesterol Overweight (BMI 25.0-29.9) HTN (hypertension) Surgical History Surgical History History of appendectomy History of bladder suspension procedure (10/07/21) History of tonsillectomy H/O: hysterectomy (08/24/82) hysterectomy/ovaries remain History of eye surgery (08/26/02) lens implants both eyes Hx of breast reduction, elective (10/29/07) S/P breast biopsy, left (02/13/09) left breast sterotactic bx - fibrocystic changes H/O colonoscopy (12/02/11) colonoscopy - sigmoid diverticulosis, hemorrhoidal disease; diffuse melanosis coli Family History Family History Father Hypertension Atherosclerosis Grandparent Diabetes mellitus Sibling Diabetes mellitus Breast cancer Sister Mother Dementia Social History Social History Smoking packs per day: 0.5 Smoking cigarettes per day: 10.0 Years smoked: 40 Smoking pack-years: 20.00 Smoking status: Current every day smoker Tobacco type: cigarettes Second hand tobacco smoke exposure: Yes Alcohol intake: never Substance use: never Substance use type: does not use Do You Feel Safe in your Home?: Yes Lack of Transportation: No Lack of Food: Never True Current Housing: I Have Housing Concerned About Future Housing: No Difficulty Paying Gas/Electric Bills: No Difficulty Paying for Meds: No Currently Unemployed: No Education: High School Diploma/GED Difficulty w/ Childcare or Family Care: No Living arrangements: with family Additional living arrangements comments: Occupation/Education: retired Gender identity (if verbalized by the patient): Female Sexual Orientation (if Verbalized by the Patient): Straight or Heterosexual Spiritual care concerns: No Meds Home Medications and Allergies Home Medications ?Medication ?Instructions ?Recorded ?Confirmed ?Type B-complex with vitamin C 1 cap PO DAILY 09/24/21 07/14/25 History Collagen Powder See Rx Instructions .Route .COMPLEX 09/24/21 07/14/25 History Probiotic Formula 51 billion cells DAILY 09/24/21 05/25/25 History Raw Honey 1 tsp DAILY 09/24/21 05/25/25 History amlodipine 10 mg tablet 10 mg PO DAILY 09/24/21 07/14/25 History ascorbic acid (vitamin C) 500 mg 500 mg PO DAILY 09/24/21 07/14/25 History tablet,extended release (Vitamin C ER) cholecalciferol (vitamin D3) 125 125 mcg PO DAILY 09/24/21 07/14/25 History mcg (5,000 unit) tablet coenzyme Q10 100 mg capsule 100 mg PO DAILY 09/24/21 07/14/25 History (CoQ-10) glucosamine sulf dipot 1 cap PO DAILY 09/24/21 07/14/25 History chlr,msm,chond 550 mg-C 30 mg-jessie 1 mg capsule (Glucosamine Chondroitin) hskyzpea-pbg-xgdse ac 400 2 tablet PO DAILY 09/24/21 07/14/25 History mcg-calcium carb 500 mg-vit K1 20 mcg tablet (Women's 50 Plus Multivitamin) omega-3 fatty acids-fish oil 300 1 cap PO DAILY 09/24/21 07/14/25 History mg-500 mg capsule (Fish Oil) cyanocobalamin (vitamin B-12) 1,000 mcg PO DAILY 04/06/23 07/14/25 History 1,000 mcg capsule clobetasol 0.05 % topical ointment 1 applic topical BID #45 grams 10/27/23 07/14/25 Rx vitamin K2 45 mcg capsule 45 mcg PO DAILY 04/14/25 07/14/25 History Allergies Allergy/AdvReac Type Severity Reaction Status Date / Time methylisothiazolinone Allergy Severe Anaphylaxis Verified 07/12/25 13:43 latex Allergy Rash Verified 06/27/25 13:36 methylchloroisothiazolinone Allergy Anaphylaxis Verified 06/27/25 13:36 chloroisothiazolinone Allergy Severe Anaphylaxis Uncoded 07/12/25 13:43 isothiazolone Allergy Severe Anaphylaxis Uncoded 07/12/25 13:43 CLEANING CHEMICALS Allergy Anaphylaxis Uncoded 05/25/25 11:18 Vital Signs Vital Signs - 24 hr 07/14/25 13:26 Temperature 97.7 F Pulse Rate 87 Respiratory Rate 16 Blood Pressure 142/76 H Pulse Oximetry 98 Oxygen Delivery Room Air Exam Const: General: comfortable and no acute distress HENMT: Face/Nose/Sinus: Normal nares present Eyes: General: appearance normal, both eyes and all related structures Neck: Neck: no JVD Resp: Auscultation: clear to auscultation bilaterally Cardio: Rate: regular rate Rhythm: regular rhythm GI: Inspection: non-distended GI Palp: Yes Soft to palpation Skin: General skin exam: normal color Extrem: General: normal to inspection Psych: Mental Status: mental status grossly normal Assessment and Plan Assessment and plan (1) Colon cancer screening: Code(s): Z12.11 - Encounter for screening for malignant neoplasm of colon Status: Acute Assessment and Plan: colonoscopy
[2025-07-14 14:58] VITALS: BP 94/59; PULSE 87; RESP 19; O2SAT 97
[2025-07-14 15:08] VITALS: BP 103/59; PULSE 71; RESP 20; O2SAT 98
[2025-07-14 15:18] VITALS: BP 124/68; PULSE 64; RESP 19; O2SAT 98
== END 2025-07-14 15:35 | disposition home or self-care (01) ==
PROVIDERS: PCP Physician Assistant; Referring Provider Nurse Practitioner Family; Visit Provider Internal Medicine Gastroenterology
PROC: 0DJD8ZZ Inspection of Lower Intestinal Tract, Via Natural or Artificial Opening Endoscopic (ICD-10-PCS; CPT 45378; principal; 2025-07-14 14:30)
DX: Z12.11 Encounter for screening for malignant neoplasm of colon (principal); K64.8 Other hemorrhoids; K57.30 Diverticulosis of large intestine without perforation or abscess without bleeding; I10 Essential (primary) hypertension; E78.00 Pure hypercholesterolemia, unspecified; G47.00 Insomnia, unspecified; K52.9 Noninfective gastroenteritis and colitis, unspecified; F17.210 Nicotine dependence, cigarettes, uncomplicated; Z98.890 Other specified postprocedural states; Z80.3 Family history of malignant neoplasm of breast
CPT/HCPCS: G0105; J2003; J2704; J7120